=== PATIENT | female | born 1990 | race Caucasian/White ===

== ENCOUNTER 2024-09-06 01:35 | Inpatient (IN) | payer OTHER, SELFPAY ==
[2024-09-06] VITALS (12 sets, daily range): BP systolic 127–146; BP diastolic 77–95; PULSE 56–112; RESP 16–32; TEMP 36.6–37.8; O2SAT 96–100; BMI 20.6
--- NOTE | 2024-09-06 | ECG_ITS ---
Test Reason : DRUG USE Blood Pressure : */* mmHG Vent. Rate : 108 BPM Atrial Rate : 108 BPM P-R Int : 114 ms QRS Dur : 80 ms QT Int : 372 ms P-R-T Axes : 80 118 122 degrees QTcB Int : 498 ms Poor data quality Sinus tachycardia Left posterior fascicular block Nonspecific T wave abnormality Abnormal ECG When compared with ECG of 16-Jul-2017 14:16, Left posterior fascicular block is now Present Nonspecific T wave abnormality now evident in Inferior leads Nonspecific T wave abnormality now evident in Anterolateral leads Referred By: Phil To Electronically Signed By: CAROLINE WALKER MD
--- NOTE | ~2024-09-06 | XR_ITS ---
CLINICAL HISTORY: cough 1 view chest x-ray Comparison: CR/[place] - CHEST 2 VIEWS - 07/01/18 14:07 EST Findings: Patient is rotated on this study. Lungs are well inflated. Cardiac silhouette is within normal limits. No focal areas of consolidation. Rounded density is over the lung bases are related to the nipple shadows. No pleural effusions. IMPRESSION: 1. No acute findings. This document has been electronically signed by: Ashish Goncalves MD on 09/06/2024 09:04:53
--- NOTE | ~2024-09-06 | CT_ITS ---
CLINICAL HISTORY: change in mental status CT head without contrast Comparison: None Findings: Patient's head is slightly tilted in the scanner. The size and shape of the ventricular system is within normal limits for this patient's age. There is subtle low attenuation within the left superior occipital lobe posteriorly extending to the posterior left parietal lobe. Attenuation of the brain parenchyma is otherwise within normal limits. No midline shift or mass effect. No sulcal effacement. No intracranial hemorrhage. No calvarial fractures. IMPRESSION: Subtle low attenuation within the left occipital lobe and left parietal lobe posteriorly. Although this could be artifactual in nature due the patient's head being tilted in the scanner, further evaluation with a contrast-enhanced MRI of the brain is suggested. This document has been electronically signed by: Ashish Goncalves MD on 09/06/2024 09:04:55
--- NOTE | ~2024-09-06 | CT_ITS ---
CLINICAL HISTORY: fevers, vomiting, AMS concern for aspiration CT chest without contrast Comparison: CR - XR CHEST 1V - 09/06/24 08:24 EST Findings: Normal heart size. No pericardial effusion. Calcific coronary artery disease: None. This exam was subject to excessive motion subtle pathology may be obscured. Reticular nodular opacities right lower lobe lungs are otherwise clear. No pneumothorax or pleural effusions, plaques or calcifications. Central airways are patent. No bronchiectasis. No thyroid nodules. No chest wall masses. No axillary adenopathy. Nondiagnostic evaluation of the upper abdomen. Subtle fractures can not be excluded Impression: 1. This exam was subject to excessive motion subtle pathology may be obscured consider a repeat exam. 2. Reticular nodular opacities right lower lobe possible inflammatory process can not exclude aspiration pneumonitis. No pleural effusions. This document has been electronically signed by: Orion Ochoa MD on 09/06/2024 11:30:53
--- NOTE | ~2024-09-06 | MR_ITS ---
CLINICAL HISTORY: Acute encephalopathy MR Brain with and without gadolinium Comparison: CT/SR - CT HEAD/BRAIN WO IV CON - 09/06/24 08:20 EST Findings: There are small foci of FLAIR hyperintensity involving the cortex of the left frontal lobe (series 8 images 15 and 16 ). No associated diffusion abnormality or enhancement. No mass or mass effect. No intracranial hemorrhage. No midline shift. No hydrocephalus. Vascular flow voids are intact. The orbits are normal. Severe mucosal thickening within the right maxillary sinus. Remaining paranasal sinuses are clear. No focal bone lesion. IMPRESSION: Small foci of FLAIR hyperintensity within the left frontal lobe. Could consider encephalitis. This document has been electronically signed by: Ani Bates MD on 09/07/2024 14:10:31
--- NOTE | ~2024-09-06 | CT_ITS ---
CLINICAL HISTORY: change in mental status CT angiography head with IV contrast. 3-D postprocessing Comparison: CT/SR - CT HEAD/BRAIN WO IV CON - 09/06/24 08:20 EST Findings: Angiographic images of the head: The terminal portion of both internal carotid arteries are patent. The anterior and middle cerebral arteries are patent along their proximal aspects. Posteriorly within the head, the intradural vertebral arteries, basilar artery and surgical territory manager are patent. No aneurysm or arteriovenous shunting lesion is appreciated. Impression: 1. Wide patency of the intracranial arterial circulation. 2. No intracranial aneurysm or AVM. 3. This exam was subject to excessive motion subtle pathology may be obscured. CT angiography neck with contrast. 3-D postprocessing Comparison: CT/SR - CT HEAD/BRAIN WO IV CON - 09/06/24 08:20 EST Findings: Angiographic images of the neck: The bilateral common carotid arteries are patent. Both carotid bulbs are widely patent. Both ICAs follow normal course and caliber through their distal cervical segments. Posteriorly within the neck, the vertebral arteries are left dominant with patent origins. Both vessels follow normal course and caliber through their suboccipital segments. Right antrectomy. Mucoperiosteal thickening of the right maxillary sinuses. No mastoid effusions. Adenoids are not enlarged. Normal Fossa of Rosenmuller. Epiglottis and palatine tonsils are not enlarged. No subglottic masses. Normal thyroid gland. Osseous structures intact. Lung apices unremarkable. Impression: 1. There is no stenosis of the right common carotid artery bifurcation and proximal right internal carotid artery based on NASCET criteria. 2. There is no stenosis of the left common carotid artey bifurcation and proximal left internal carotid artery based on NASCET criteria. 3. Wide patency of the cervical vertebral arteries. 4. Excessive motion may obscure subtle pathology. This document has been electronically signed by: Orion Ochoa MD on 09/06/2024 11:53:45
--- NOTE | ~2024-09-06 | XR_ITS ---
CLINICAL HISTORY: for mri screen 1 view abdomen Comparison: CT/SR - CT CHEST WO IV CON - 09/06/24 10:22 EST Findings: Nonobstructive bowel gas pattern with large stool burden throughout the colon most pronounced in the rectal vault. A rectal lead is in place which should be removed prior to MRI, unless known to be MR compatible. Small amount of contrast in the urinary bladder Peribronchial thickening in the right lower lung. Bilateral nipple shadow. No opaque calculi. Bones intact. Impression: Nonobstructive bowel gas pattern with large stool burden. Rectal lead in place which should be removed prior to MRI unless known to be MR compatible. This document has been electronically signed by: Shurki Castillo MD on 09/07/2024 11:21:25
[2024-09-06] MEDS: Naloxone HCl Nasal 4 MG SPRAY NOSTRILALT (01:42)
--- NOTE | 2024-09-06 01:42 | ED.OVERDOSE ---
HPI - Overdose General Chief Complaint: Behavioral Concerns Stated Complaint: OD Time Seen by Provider: 09/06/24 01:42 Source: EMS Mode of arrival: EMS Limitations: altered mental status History of Present Illness ED Provider: HPI Narrative: Patient is brought by EMS found in the car at the gas station with door locked and unresponsive PD found heroin and unknown pills in the car responsive to painful stimuli on arrival Narcan was given without significant effect falling asleep no IVDA track medina no signs of injury Related Data Allergies Allergy/AdvReac Type Severity Reaction Status Date / Time No Known Allergies Allergy Verified 09/06/24 01:57 Review of Systems Review of Systems: Yes Unobtainable due to mental status PMFSH Social History Social History Advance Directives: No Physical Exam Vital Signs: Vital Signs: Last Vital Signs Temp 98.2 F 09/06/24 06:34 Pulse 56 09/06/24 06:34 Resp 20 09/06/24 06:34 BP 146/90 H 09/06/24 06:34 Pulse Ox 96 09/06/24 06:34 O2 Del Method Room Air 09/06/24 06:34 BMI result Body Mass Index 20.6 Appearance: Lethargic No acute distress. Eyes: 2 mm pupils reacting to light ENT: Pharynx normal. Oral Mucosa moist Neck: Normal inspection. Neck supple. CVS: Normal heart rate and rhythm. Pulses normal. Respiratory: No respiratory distress. Equal air entry bilateral, no wheezing/rales/rhonchi Abdomen: Soft and nontender. Bowel sounds are present, no mass palpable, no CVA tenderness Skin: Skin warm and dry. Normal skin color. Normal skin turgor. Extremities: No lower extremity edema. No calf tenderness Neuro: Sleepy arousable to painful stimuli moving all 4 extremities Medications Administered Discontinued Medications Generic Name Dose Route Start Last Admin Trade Name Freq PRN Reason Stop Dose Admin Naloxone HCl 4 mg 09/06/24 01:42 09/06/24 01:42 Naloxone Hcl Nasal 4 Mg [place] NOSTRILALT 09/06/24 01:43 4 mg ONCE ONE Administration Prochlorperazine Edisylate 10 mg 09/06/24 05:07 09/06/24 05:33 Prochlorperazine Edisylate 10 Mg/2 Ml Vial IM 09/06/24 05:08 10 mg ONCE ONE Administration Medical Decision Making Medical Decision Making [facility] Narrative: Patient with polysubstance overdose with stable vitals patient is still sleeping poor response to Narcan will wait for the patient to wake up for urine for drug screening and consult care team/recovery team patient is signed out to Dr. Baig Differential Diagnosis Differential Diagnoses: The differential diagnosis associated with the presentation includes Polysubstance abuse/anxiety/depression/psychological/psychotic disorder Lab Data [facility] Lab Attestation statement: I reviewed the patient's lab results. 09/06/24 03:16 09/06/24 03:16 Labs: Lab Results 09/06/24 09/06/24 Range/Units 03:16 06:32 WBC 11.5 H (4.8-10.8) X10*3/uL RBC 5.82 H (4.20-5.50) X10*6/uL Hgb 11.0 L (12.0-16.0) g/dl Hct 37.1 (37.0-47.0) % MCV 63.7 L (80.0-98.0) fL MCH 18.9 L (27.0-33.0) pg MCHC 29.6 L (31.0-35.0) g/dl RDW 22.6 H (11.0-16.0) % Plt Count 490 H (160-400) X10*3/uL MPV 9.5 (9.4-12.3) fL Immature Gran % (Auto) 0.3 (0.0-0.4) % Neut % (Auto) 74.8 H (45-73) % Lymph % (Auto) 19.3 L (20-40) % [place] % (Auto) 5.0 (2-11) % Eos % (Auto) 0.3 (0-4) % Baso % (Auto) 0.3 (0-2) % Lymph # (Auto) 2.2 (1.2-4.9) X10*3/uL [place] # (Auto) 0.6 (0.1-1.2) X10*3/uL Eos # (Auto) 0.0 (0.0-0.4) X10*3/uL Baso # (Auto) 0.0 (0.0-0.2) X10*3/uL Abs Immat Gran (auto) 0.03 (0.00-0.03) X10*3/uL Absolute Neuts (auto) 8.6 H (2.0-8.3) x10*3/uL Absolute Nucleated RBC 0.000 (0.0-0.012) X10*3/uL Nucleated RBC % (auto) 0.0 (0.0-0.2) /100WBC Sodium 141 (135-145) mmol/L Potassium 3.7 (3.3-5.1) mmol/L Chloride 105 (96-108) mmol/L Carbon Dioxide 20 L (22-29) mmol/L Anion Gap 20 (12-20) BUN 12 (9-16) mg/dL Creatinine 0.58 (0.5-1.4) mg/dL Estim Creat Clear Calc 116.3 Estimated GFR > 60 Random Glucose 100 (60-115) mg/dL Calcium 10.4 H (8.4-10.2) mg/dL Total Bilirubin 0.4 (0.0-1.0) mg/dL AST 24 (5-31) U/L ALT 10 (0-31) U/L Alkaline Phosphatase 74 (39-117) U/L Total Protein 8.9 H (6.5-8.0) g/dL Albumin 4.4 (3.5-5.0) g/dL Urine Color Yellow Urine Appearance Turbid Urine pH 7.0 (5.0-9.0) Ur Specific [place] 1.025 (1.005-1.025) Urine Protein 30 (1+) H (Neg-Trace) mg/dL Urine Glucose (UA) Negative (Negative) mg/dL Urine Ketones >=160 (Negative) mg/dL Urine Blood Negative (Negative) Urine Nitrite Negative (Negative) Ur Leukocyte Esterase Negative (Negative) Salicylates < 5.0 L (15-30) mg/dL Acetaminophen < 3 (<30) mcg/mL Ethyl Alcohol < 10 mg/dL Influenza Type A (PCR) NEGATIVE (Negative) Influenza Type B (PCR) NEGATIVE (Negative) RSV RNA Qual (PCR) NEGATIVE (Negative) SARS-CoV-2 RNA (RT-PCR) NEGATIVE (Negative) Discharge Plan Discharge Clinical Impression: Polysubstance abuse Patient Disposition: Still a Patient Print Language: Hungarian
[2024-09-06 03:19] LABS: MANUAL DIFF FLAG NO
[2024-09-06 03:22] LABS: Basophils Percent Auto 0.3 % (0-2); Eosinophils Percent Auto 0.3 % (0-4); Hematocrit 37.1 % (37.0-47.0); Imm Gran Abs Auto 0.03 X10*3/uL (0.00-0.03); Imm Gran Pct Auto 0.3 % (0.0-0.4); Lymphocytes Absolute Auto 2.2 X10*3/uL (1.2-4.9); Lymphocytes Percent Auto 19.3 % (20-40); Mean Corpuscular HGB Conc 29.6 g/dl (31.0-35.0); Mean Corpuscular Hemoglobin 18.9 pg (27.0-33.0); Mean Platelet Volume 9.5 fL (9.4-12.3); Monocytes Absolute Auto 0.6 X10*3/uL (0.1-1.2); Neutrophils Absolute Auto 8.6 x10*3/uL (2.0-8.3); Neutrophils Percent Auto 74.8 % (45-73); Platelet Count 490 X10*3/uL (160-400); Red Blood Count 5.82 X10*6/uL (4.20-5.50); Red Cell Distribution Width 22.6 % (11.0-16.0); White Blood Count 11.5 X10*3/uL (4.8-10.8)
[2024-09-06 03:23] LABS: Mean Corpuscular Volume 63.7 fL (80.0-98.0)
--- NOTE | 2024-09-06 03:30 | MHC.EDTECH ---
patient woke up and had multiple episodes of vomiting on herself. vomit was brown with mucous.
--- NOTE | 2024-09-06 03:30 | PC.NURSE ---
pt woke up during ekg, tracking staff with eyes however not responding to questions. remains calm, cooperative with lab draws. 1:1 sitter for safety. on arrival pt was changed over by security and belongings secured in [place].
[2024-09-06 03:58] LABS: Influenza A PCR NEGATIVE (Negative); Influenza B PCR NEGATIVE (Negative); Resp Syncy Virus RNA Qual PCR NEGATIVE (Negative); SARS COV2 PCR INHOUSE NEGATIVE (Negative)
[2024-09-06 04:00] LABS: Acetaminophen LAB < 3 mcg/mL (<30); Alanine Aminotransferase 10 U/L (0-31); Albumin Level 4.4 g/dL (3.5-5.0); Alkaline Phosphatase 74 U/L (39-117); Anion Gap 20 (12-20); Aspartate Amino Transferase 24 U/L (5-31); Bilirubin Total 0.4 mg/dL (0.0-1.0); Blood Urea Nitrogen 12 mg/dL (9-16); Calcium 10.4 mg/dL (8.4-10.2); Carbon Dioxide 20 mmol/L (22-29); Chloride 105 mmol/L (96-108); Creatinine Clr Calc Pharmacy 116.3; Estimated Glomerular Filt Rate > 60; Ethanol < 10 mg/dL; Glucose Random 100 mg/dL (60-115); Potassium 3.7 mmol/L (3.3-5.1); Salicylate < 5.0 mg/dL (15-30); Sodium 141 mmol/L (135-145); Total Protein 8.9 g/dL (6.5-8.0)
[2024-09-06] MEDS: Prochlorperazine Edisylate 10 MG/2 ML VIAL IM (05:33)
--- NOTE | 2024-09-06 06:33 | PC.NURSE ---
Pt straight cath for urine. 215 mL of Yellow, cloudy urine collected and sent to lab. Pt tolerated well.
[2024-09-06 06:42] LABS: Appearance Urine Turbid; Color Urine Yellow; Glucose Urine UA Negative (Negative); Leukocyte Esterase Urine Negative (Negative); Nitrite Urine Negative (Negative); Specific Gravity - Urine 1.025 (1.005-1.025); UMIC TRIGGER UACC YES; Urine Blood Negative (Negative); Urine Ketones >=160 mg/dL (Negative); Urine Protein 30 (1+) mg/dL (Neg-Trace)
[2024-09-06 06:45] LABS: Bacteria Urine 4+ (None Seen); Hyaline Casts Urine 0-2 /LPF (0-2); RBC Urine 0-2 /HPF (0-2); Squamous Epithelial Cell Urine 0-2 /HPF (0-2); WBC Urine 0-5 /HPF (0-5)
[2024-09-06 06:57] LABS: Amphetamine Screen Urine Not Detected (Not Detect); Barbiturates, Urine Not Detected (Not Detect); Benzodiazepines Screen Urine POSITIVE (Not Detect); Buprenorphine Scr Not Detected (Not Detect); Cannabinoid Screen Urine Not Detected (Not Detect); Cocaine Screen Urine POSITIVE (Not Detect); Fentanyl, urine POSITIVE (Not Detect); Methadone Screen, Urine Not Detected (Not Detect); Opiate Screen Urine POSITIVE (Not Detect); Oxycodone Screen Urine Not Detected (Not Detect); Phencyclidine Screen Urine Not Detected (Not Detect)
[2024-09-06 07:32] LABS: HCG Quantitative < 2 mIU/mL
[2024-09-06 07:43] LABS: Carbon Monoxide Refer to POC result; Venous Blood Gas Refer to POC result
[2024-09-06 07:45] LABS: VBG Base Excess -0.2 mmol/L; VBG HCO3 20 mmol/L (22-26); VBG pCO2 23 mmHg; VBG pH 7.54 (7.32-7.43); VBG pO2 176 mmHg
--- NOTE | 2024-09-06 07:50 | MHC.EDTECH ---
Rosa and blood work completed, and we have another order for EKG but Doctor not need it will be cancel, patient is sleeping quietly now and she has 1:1 sitter.
[2024-09-06 07:52] LABS: Carbon Monoxide POC 8.3 %
--- NOTE | 2024-09-06 08:31 | MHC.EDTECH ---
EKG ordered at [address] Baig we don't need a repeat EKG at this time since EKG done at 0234.
[2024-09-06 10:05] LABS: Ammonia 33 umol/L (13-55)
[2024-09-06 10:13] LABS: Lactic Acid 0.7 mmol/L (0.5-2.0)
[2024-09-06 10:13] LABS: Carbon Monoxide Refer to POC result
[2024-09-06 10:15] LABS: Carbon Monoxide POC 2.2 %
[2024-09-06] MEDS: cefTRIAXone sodium 2 GM VIAL IVPUSH (10:16)
[2024-09-06 10:22] LABS: C Reactive Protein 0.44 mg/dL (< or = 0.50)
[2024-09-06 10:49] LABS: Erythrocyte Sedimentation Rate 18 MM/HR (0-20)
[2024-09-06] MEDS: ondansetron HCL 4 MG/2 ML VIAL IVPUSH (10:49)
[2024-09-06] MEDS: Acetaminophen 1,000 MG/100 ML PIGGYBACK 400 MG IV (10:50)
[2024-09-06] MEDS: vancomycin HCL 1,250 MG in 0.9 % Sodium Chloride 250 ML 166.67 MG IV (10:52)
--- NOTE | 2024-09-06 11:52 | PC.NURSE ---
apple watch given to mother to try to track down the pt's phone and car
--- NOTE | 2024-09-06 11:58 | PC.NURSE ---
pt continues to sleep, mother at bedide and trying to find the pt's car and phone, while pt was in ct scan, after the chest ct, the pt vomitted and was assisted to a sitting position, pt opened her eyes but did not converse at all, able to sit up on her own, eyes open but no eye contact
--- NOTE | 2024-09-06 13:06 | MHC.EDTECH ---
Mother (Diana) phone number: .
--- NOTE | 2024-09-06 14:33 | P.HPHOSP_ITS ---
History of Present Illness Date of Service: 09/06/24 Attending physician on admission: [facility] Chief Complaint: Found unresponsive Pt is a 33-year-old female with a PMH significant for necrotizing pneumonia, endocarditis, polysubstance use disorder with IVDU, seizure secondary to drug use, ADHD, and anxiety to? who presents to the ED after being found in a locked car at a gas station unresponsive. Windows had to be broken in order to gain access, and police found heroin and unknown pills in the car. Pt was unresponsive to painful stimuli and given Narcan upon arrival to the ED without significant effect. Review of [facility] [place] records shows pt was admitted on 07/24 to 07/26/2024 for seizure activity. EEG negative and seizure thought to be drug related. ED contacted patient's family who note she is currently staying with her mom after leaving her . Mother reports spoke to her yesterday found her to be in her normal state of health. Pt seen and evaluated in the ED where she continues to be unresponsive to painful stimuli. Pt noted to have subtle, rhythmic shaking of upper and lower extremities, most pronounced in right upper extremity. Raised patient's arms above her head and she did not allow them to fall back down. Pt given Ativan 2 mg IV and upon re-evaluation 30 minutes later tremors have ceased. Pt continues to be unresponsive to painful stimuli In the ED pt had low-grade fever of 100.1, tachycardic up to 110, tachypneic up to 32, and initially hypertensive at 146/90. Labs were significant for leukocytosis of 11.5, H&H 11.0/37.1, VBG pH 7.54, pCO2 23, and bicarb 20. Initial carbon monoxide level 8.3 with repeat 2.2. No significant electrolyte abnormalities. Renal and hepatic function baseline. Ammonia WNL. CPK WNL. CXR showed no acute findings. Head CT showed subtle low attenuation within left occipital lobe and left parietal lobe possibly artifactual, though MRI with contrast recommended. CTA of chest with excessive motion, but showed possible aspiration pneumonitis. CTA of head/neck?with excessive motion, but negative for acute abnormalities or stenosis. EKG demonstrated for due to quality but likely showing normal sinus rhythm without evidence of significant ST elevations or depressions. QTc prolonged at 498. Pt was treated in the ED with naloxone, Compazine, IVF, ondansetron, acetaminophen, vancomycin, and ceftriaxone. Pt will be admitted to the hospital for treatment and further evaluation of acute metabolic encephalopathy of unclear etiology requiring additional workup and empiric IV antibiotics and antivirals. Review of Systems 2 Review of Systems: Yes Unobtainable due to mental status PMFSH Social History Unable to assess alcohol history related to: Unable to respond Patient Tobacco Use Status: Tobacco use Unknown Advance Directives: No Nutrition Risks: No Nutritional Risk Meds Allergies Allergy/AdvReac Type Severity Reaction Status Date / Time No Known Allergies Allergy Verified 09/06/24 01:57 Home Medications ?Medication ?Instructions ?Recorded ?Confirmed ?Last Taken ?Type albuterol sulfate 90 mcg/actuation 2 puff inhalation Q4H PRN 09/06/24 09/06/24 Unknown History aerosol inhaler (Ventolin HFA) Shortness Of Breath Or Wheezing alprazolam 2 mg tablet 2 mg PO QID PRN anxiety 09/06/24 09/06/24 Unknown History bupropion HCl 300 mg 24 hr tablet, 300 mg PO DAILY 09/06/24 09/06/24 Unknown History extended release clonidine HCl 0.2 mg tablet 0.2 mg PO BEDTIME 09/06/24 09/06/24 Unknown History dextroamphetamine-amphetamine 15 1 tab PO TID 09/06/24 09/06/24 Unknown History mg tablet escitalopram oxalate 10 mg tablet 10 mg PO DAILY 09/06/24 09/06/24 Unknown History hydroxyzine HCl 50 mg tablet 50 mg PO BID PRN anxiety 09/06/24 09/06/24 Unknown History Physical Exam 2 Vital Signs and Narrative: Vital Signs: Last Vital Signs Temp 99.8 F 09/06/24 12:34 Pulse 69 09/06/24 13:09 Resp 26 H 09/06/24 13:09 BP 137/85 09/06/24 13:09 Pulse Ox 99 09/06/24 13:09 O2 Del Method Room Air 09/06/24 13:09 BMI result Body Mass Index 20.6 General: Obtunded, not responsive to painful stimuli. In no acute distress Resp: CTA bilaterally CVS: S1, S2, regular rate, tachycardic. No murmur, rub, gallop appreciated GI: +BS, NT, no distention Skin: Warm, dry Neuro: Moves all 4 extremities spontaneously. Slight tremulous activity of extremities, most pronounced in right upper extremity Extremities: No edema Results Labs 09/07/24 05:53 09/07/24 05:53 Labs: Laboratory Results - last 24 hr 09/06/24 09/06/24 09/06/24 03:16 06:32 07:40 MCV 63.7 L MCH 18.9 L MCHC 29.6 L RDW 22.6 H Plt Count 490 H MPV 9.5 Immature Gran % (Auto) 0.3 Neut % (Auto) 74.8 H Lymph % (Auto) 19.3 L [place] % (Auto) 5.0 Eos % (Auto) 0.3 Baso % (Auto) 0.3 Lymph # (Auto) 2.2 [place] # (Auto) 0.6 Eos # (Auto) 0.0 Baso # (Auto) 0.0 Abs Immat Gran (auto) 0.03 Absolute Neuts (auto) 8.6 H Absolute Nucleated RBC 0.000 Nucleated RBC % (auto) 0.0 ESR Hold Purple Top VBG pH 7.54 H VBG pCO2 23 VBG pO2 176 VBG HCO3 20 L VBG O2 Saturation 99.0 VBG Base Excess -0.2 Carboxyhemoglobin % Anion Gap 20 Estim Creat Clear Calc 116.3 Estimated GFR > 60 Random Glucose 100 Lactic Acid Calcium 10.4 H Total Bilirubin 0.4 AST 24 ALT 10 Alkaline Phosphatase 74 Ammonia Total Creatine Kinase C-Reactive Protein Total Protein 8.9 H Albumin 4.4 Beta HCG, Quant < 2 Urine Color Yellow Urine Appearance Turbid Urine pH 7.0 Ur Specific [place] 1.025 Urine Protein 30 (1+) H Urine Glucose (UA) Negative Urine Ketones >=160 Urine Blood Negative Urine Nitrite Negative Ur Leukocyte Esterase Negative Urine RBC 0-2 Urine WBC 0-5 Ur Squamous Epith Cells 0-2 Urine Bacteria 4+ Hyaline Casts 0-2 Salicylates < 5.0 L Urine Opiates Screen POSITIVE H Ur Buprenorphine Scrn Not Detected Ur Oxycodone Screen Not Detected Urine Methadone Screen Not Detected Urine Fentanyl Screen POSITIVE H Acetaminophen < 3 Ur Barbiturates Screen Not Detected Ur Phencyclidine Scrn Not Detected Ur Amphetamines Screen Not Detected U Benzodiazepines Scrn POSITIVE H Urine Cocaine Screen POSITIVE H U Marijuana (THC) Screen Not Detected Ethyl Alcohol < 10 Influenza Type A (PCR) NEGATIVE Influenza Type B (PCR) NEGATIVE RSV RNA Qual (PCR) NEGATIVE SARS-CoV-2 RNA (RT-PCR) NEGATIVE 09/06/24 09/06/24 09/06/24 07:45 09:35 09:43 MCV MCH MCHC RDW Plt Count MPV Immature Gran % (Auto) Neut % (Auto) Lymph % (Auto) [place] % (Auto) Eos % (Auto) Baso % (Auto) Lymph # (Auto) [place] # (Auto) Eos # (Auto) Baso # (Auto) Abs Immat Gran (auto) Absolute Neuts (auto) Absolute Nucleated RBC Nucleated RBC % (auto) ESR 18 Hold Purple Top SEE NOTE VBG pH VBG pCO2 VBG pO2 VBG HCO3 VBG O2 Saturation VBG Base Excess Carboxyhemoglobin % 8.3 H* Anion Gap Estim Creat Clear Calc Estimated GFR Random Glucose Lactic Acid 0.7 Calcium Total Bilirubin AST ALT Alkaline Phosphatase Ammonia 33 Total Creatine Kinase 83 C-Reactive Protein 0.44 Total Protein Albumin Beta HCG, Quant Urine Color Urine Appearance Urine pH Ur Specific [place] Urine Protein Urine Glucose (UA) Urine Ketones Urine Blood Urine Nitrite Ur Leukocyte Esterase Urine RBC Urine WBC Ur Squamous Epith Cells Urine Bacteria Hyaline Casts Salicylates Urine Opiates Screen Ur Buprenorphine Scrn Ur Oxycodone Screen Urine Methadone Screen Urine Fentanyl Screen Acetaminophen Ur Barbiturates Screen Ur Phencyclidine Scrn Ur Amphetamines Screen U Benzodiazepines Scrn Urine Cocaine Screen U Marijuana (THC) Screen Ethyl Alcohol Influenza Type A (PCR) Influenza Type B (PCR) RSV RNA Qual (PCR) SARS-CoV-2 RNA (RT-PCR) 09/06/24 10:10 MCV MCH MCHC RDW Plt Count MPV Immature Gran % (Auto) Neut % (Auto) Lymph % (Auto) [place] % (Auto) Eos % (Auto) Baso % (Auto) Lymph # (Auto) [place] # (Auto) Eos # (Auto) Baso # (Auto) Abs Immat Gran (auto) Absolute Neuts (auto) Absolute Nucleated RBC Nucleated RBC % (auto) ESR Hold Purple Top VBG pH VBG pCO2 VBG pO2 VBG HCO3 VBG O2 Saturation VBG Base Excess Carboxyhemoglobin % 2.2 Anion Gap Estim Creat Clear Calc Estimated GFR Random Glucose Lactic Acid Calcium Total Bilirubin AST ALT Alkaline Phosphatase Ammonia Total Creatine Kinase C-Reactive Protein Total Protein Albumin Beta HCG, Quant Urine Color Urine Appearance Urine pH Ur Specific [place] Urine Protein Urine Glucose (UA) Urine Ketones Urine Blood Urine Nitrite Ur Leukocyte Esterase Urine RBC Urine WBC Ur Squamous Epith Cells Urine Bacteria Hyaline Casts Salicylates Urine Opiates Screen Ur Buprenorphine Scrn Ur Oxycodone Screen Urine Methadone Screen Urine Fentanyl Screen Acetaminophen Ur Barbiturates Screen Ur Phencyclidine Scrn Ur Amphetamines Screen U Benzodiazepines Scrn Urine Cocaine Screen U Marijuana (THC) Screen Ethyl Alcohol Influenza Type A (PCR) Influenza Type B (PCR) RSV RNA Qual (PCR) SARS-CoV-2 RNA (RT-PCR) Assessment and Plan (1) Acute encephalopathy: Status: Acute (2) Polysubstance abuse: Status: Acute Plan Pt is a 33-year-old female with a PMH significant for necrotizing pneumonia, endocarditis, polysubstance use disorder with IVDU, seizure secondary to drug use, ADHD, and anxiety to? who presents to the ED after being found in a locked car at a gas station unresponsive. Pt will be admitted to the hospital for treatment and further evaluation of acute metabolic encephalopathy of unclear etiology requiring additional workup and empiric IV antibiotics and antivirals. Acute metabolic encephalopathy Pt found unresponsive with heroin and pills by PD Narcan administered without effect Still obtunded and lethargic, not speaking or following commands Likely secondary to drug use CT of chest nodular opacities of RLL, aspiration pneumonitis can not be excluded CTA of head with subtle area low-attenuation possibly artifact, further evaluation with MRI recommended Meets SIRS criteria with tachycardia and tachypnea; lactic acid WNL Will empirically treat with vancomycin, ceftriaxone, and acyclovir, started 09/06/2024 IVF: Lactated Ringer's @125 ml/hr Will check MRI wo/w contrast Monitor mentation Question of seizure activity Pt with subtle tremors most pronounce in RUE Admitted for seizure likely drug-related at [facility] [place] 07/24-07/26/2024; EEG negative Will empirically treat with Keppra 500mg IV bid Neurology consult Opioid use disorder According to [facility] [place] records on high-dose methadone 160 mg in a.m. and 115 mg at night Addiction medicine consult Mood disorder Continue home mood stabilizers once no longer encephalopathic Full Code Attending:?Dr. Colbert DVT Prophylaxis: Lovenox Pt will require a hospitalization of at least two nights for treatment of?acute metabolic encephalopathy of unclear etiology requiring empiric IV antibiotics and antivirals, as well as close monitoring of labs and cardiac function. Quality Stroke Does the patient have a stroke diagnosis?: No VTE Prior VTE?: No VTE Risk Level:: Medical - moderate - high VTE Device Contraindication: Treatment Not Indicated VTE Drug Contraindication: N/A - Med Ordered
[2024-09-06] MEDS: LORazepam 2 MG/ML VIAL IVPUSH (15:35)
--- NOTE | 2024-09-06 16:20 | PHA.MEDREC ---
Addendum entered by Crystal Meyer [facility] 09/06/24 17:13: reviewed by [facility]. Addendum entered by Felicita Reyna 09/06/24 16:35: Patients sertraline was inactivated per [facility] and escitalopram was picked up on 08/07. Left sertraline off med rec. Original Note: Pharmacy Consult ? Medication Reconciliation Pharmacy has completed the medication reconciliation. Patient is refusing to respond to staff per notes and nurse. Called patients mother, her and family on the phone were only able to name a few of her meds and were unsure on directions, said to call [facility]. Used claim history to confirm meds.
--- NOTE | 2024-09-06 17:44 | PHA.PROG ---
Admission Date/Time: Indication:Other Weight in k.431 kg Adjusted body weight in Kg: Irving body weight in Kg: Obesity Dosing Indication % IBW: BMI 20.6 Serum Creatinine - Last 168 Hours 09/06/24 03:16 Creatinine 0.58 Estimated CrCl and GFR - Last 168 Hours 09/06/24 03:16 Estim Creat Clear Calc 116.3 Estimated GFR > 60 Vancomycin Loading Dose: 1250 mg X1 Current Vancomycin Dosing Regimen: 750 Q8H Vancomycin Monitoring using AUC goal of 400 - 600 range with trough as surrogate marker: 512 Date and Time for next Vancomycin Level to be drawn: 09/07 @0900 Pharmacist Comments on Vancomycin Plan: Patient's renal function appears stable and BMI is within normal range. Starting of with 750 Q8h and getting true trough 09/07. To be adjusted as needed based on SCr and trough. Vancomycin dosing will take advantage of [employer] as a clinical decision support tool that uses Bayesian modeling to calculate individual patient's pharmacokinetic parameters and forecast the patient's drug concentration time course with the target goal AUC 24 range of 400 - 600 mg/L/hr.
[2024-09-06] MEDS: levETIRAcetam in NaCl (iso-os) 500 MG/100 ML PIGGYBACK 400 MG IV (17:54)
[2024-09-06] MEDS: Enoxaparin Sodium 40 MG/0.4 ML SYRINGE SUBCUT (17:54)
[2024-09-06] MEDS: Lactated Ringers 1,000 ML 125 ML IVCONT (17:56)
--- NOTE | 2024-09-06 17:59 | PC.NURSE ---
pt moved from ED21 to ED4 at this time. this RN took over care of pt at this time. vss and up to date. nsr on the gambling monitor. pt remains responsive to painful stimuli only but does not conversate/answer questions/follow commands appropriately when painful stimuli is applied. pt seemingly lethargic/diaphoretic. rectal temp obtained - pt afebrile. medication administered per provider order. pt pending medication from pharmacy - will administer medication when able. pt on RA w/o difficulty. no sob/wob noted. respirations even/unlabored. plan of care ongoing. call blanchard placed within reach.
[2024-09-06] MEDS: ACYCLOVIR SODIUM IV (19:08)
[2024-09-06] MEDS: SODIUM CHLORIDE 0.9% IV (19:08)
--- NOTE | 2024-09-06 19:09 | PC.NURSE ---
delay in medication administration d/t medication not being in the pyxis. medication administered per provider order.
[2024-09-06] MEDS: vancomycin HCL 750 MG in 0.9 % Sodium Chloride 250 ML 265 MG IV (20:24)
[2024-09-06 22:57] LABS: Anion Gap 19 (12-20); Blood Urea Nitrogen 15 mg/dL (9-16); Calcium 8.8 mg/dL (8.4-10.2); Carbon Dioxide 17 mmol/L (22-29); Chloride 111 mmol/L (96-108); Creatinine Clr Calc Pharmacy 116.3; Estimated Glomerular Filt Rate > 60; Glucose Random 72 mg/dL (60-115); Potassium 4.6 mmol/L (3.3-5.1); Sodium 142 mmol/L (135-145)
[2024-09-07] VITALS (8 sets, daily range): BP systolic 122–149; BP diastolic 76–92; PULSE 53–88; RESP 18–27; TEMP 36.6–37.3; O2SAT 95–100; BMI 22.9
[2024-09-07] MEDS: Lactated Ringers 1,000 ML 125 ML IVCONT ×2 (00:55→09:46)
--- NOTE | 2024-09-07 01:42 | PC.NURSE ---
patient bladder scanned for >526ml. message sent to provider who stated to place straight cath. straight cath completed. 600 ml drained.
[2024-09-07] MEDS: SODIUM CHLORIDE 0.9% IV ×3 (02:00→16:44)
[2024-09-07] MEDS: ACYCLOVIR SODIUM IV ×3 (02:00→16:44)
[2024-09-07] MEDS: vancomycin HCL 750 MG in 0.9 % Sodium Chloride 250 ML 265 MG IV ×3 (03:47→21:31)
--- NOTE | 2024-09-07 03:54 | PC.NURSE ---
Pt medicated per [facility] Plan of care ongoing.
[2024-09-07] MEDS: levETIRAcetam in NaCl (iso-os) 500 MG/100 ML PIGGYBACK 400 MG IV ×2 (05:06→08:14)
--- NOTE | 2024-09-07 05:09 | PC.NURSE ---
Pt medicated per [facility] Plan of care ongoing.
[2024-09-07 06:00] LABS: Hematocrit 29.4 % (37.0-47.0); Hemoglobin 9.1 g/dl (12.0-16.0); Mean Corpuscular Hemoglobin 19.7 pg (27.0-33.0); Mean Corpuscular Volume 63.5 fL (80.0-98.0); Mean Platelet Volume 9.7 fL (9.4-12.3); Platelet Count 300 X10*3/uL (160-400); Red Blood Count 4.63 X10*6/uL (4.20-5.50); Red Cell Distribution Width 22.3 % (11.0-16.0); White Blood Count 9.5 X10*3/uL (4.8-10.8)
--- NOTE | 2024-09-07 06:02 | PC.NURSE ---
Pts ETCO2 23 Dr woody notified and aware.
[2024-09-07 06:15] LABS: Anion Gap 18 (12-20); Blood Urea Nitrogen 13 mg/dL (9-16); Calcium 8.7 mg/dL (8.4-10.2); Carbon Dioxide 15 mmol/L (22-29); Chloride 111 mmol/L (96-108); Creatinine Clr Calc Pharmacy 122.7; Estimated Glomerular Filt Rate > 60; Glucose Random 71 mg/dL (60-115); Potassium 4.7 mmol/L (3.3-5.1); Sodium 139 mmol/L (135-145)
--- NOTE | 2024-09-07 06:17 | PC.NURSE ---
This RN assumed pt care @ 0330. Plan of care ongoing.
--- NOTE | 2024-09-07 07:00 | MHC.EDTECH ---
Reached out to phlebotomy regarding blood test, patient is a hard stick
--- NOTE | 2024-09-07 08:18 | PC.NURSE ---
ASSUMED CARE OF THIS PT. RESPONDING ONLY TO NOXIOUS STIM, REMAINS UNRESPONSIVE TO ANY COMMANDS OR QUESTIONING. IVF RUNNING. VSS, THOUGH ETCO2 REMAINS 22. ATTEMPTING TO CONTACT NURS SUP FOR STAT MRI SCHEDULING.
[2024-09-07 09:44] LABS: Venous Blood Gas Refer to POC result
[2024-09-07 09:45] LABS: VBG Base Excess -2.3 mmol/L; VBG HCO3 20 mmol/L (22-26); VBG pCO2 28 mmHg; VBG pH 7.46 (7.32-7.43); VBG pO2 60 mmHg
--- NOTE | 2024-09-07 09:48 | P.CNNE_ITS ---
History of Present Illness Data of Consult Service Date: 09/07/24 Primary Care Provider: Unknown Physician HPI Reason for consult: Encephalopathy 33-year-old female with a PMH significant for necrotizing pneumonia, endocarditis, polysubstance use disorder with IVDU, seizure secondary to drug use, ADHD, and anxiety to? who presents to the ED after being [place] in a locked car [place] station unresponsive. She was given Narcan and brought to emergency room. At 1 point she was also treated with Keppra for probable seizure. She was not responsive to interview. Review of Systems 2 Review of Systems: Could not be done with [facility] Social History Social History Unable to assess alcohol history related to: Unable to respond Patient Tobacco Use Status: Tobacco use Unknown Advance Directives: No Nutrition Risks: No Nutritional Risk Meds Allergies Allergy/AdvReac Type Severity Reaction Status Date / Time No Known Allergies Allergy Verified 09/06/24 01:57 Active Medications: Current Medications Acetaminophen (Acetaminophen 325 Mg Tablet) 650 mg PO Q6H PRN PRN Reason: Pain, Mild 1-3,fever,headache Albuterol Sulfate (Albuterol Sulfate 90 Mcg 8 Gm Inhaler) 2 puff INHALE Q4H PRN PRN Reason: Shortness Of Breath Or Wheezing Amphetamine/Dextroamphetamine (Amphetamine Mixed Salts 10 Mg Tablet) 15 mg PO TID [facility] Last Admin: 09/06/24 20:14 Dose: Not Given Bupropion HCl (Bupropion Hcl Xl 300 Mg Tab.Er.24h) 300 mg PO DAILY [facility] Calcium Carbonate (Calcium Carbonate 750 Mg Tab.Chew) 750 mg PO Q4H PRN PRN Reason: Heartburn Ceftriaxone Sodium (Ceftriaxone Sodium 2 Gm Vial) 2 gm IVPUSH Q24H [facility] Enoxaparin Sodium (Enoxaparin Sodium 40 Mg/0.4 Ml Syringe) 40 mg SUBCUT Q24H [facility] Last Admin: 09/06/24 17:54 Dose: 40 mg Escitalopram Oxalate (Escitalopram Oxalate 10 Mg Tablet) 10 mg PO DAILY [facility] Lactated Ringer's (Lr) 1,000 mls @ 125 mls/hr IVCONT .Q8H [facility] Last Admin: 09/07/24 09:46 Dose: 125 mls/hr Levetiracetam (Keppra) 500 mg in 100 mls @ 400 mls/hr IV Q12H [facility] Last Infusion: 09/07/24 05:25 Dose: Infused Acyclovir Sodium 550 mg/ (Sodium Chloride) 261 mls @ 261 mls/hr IV Q8H [facility] Last Admin: 09/07/24 09:38 Dose: 261 mls/hr Vancomycin HCl 750 mg/ Sodium (Chloride) 265 mls @ 265 mls/hr IV Q8H [facility] Last Infusion: 09/07/24 05:05 Dose: Infused Magnesium Hydroxide (Milk Of Magnesia 30 Ml Oral.Susp) 30 ml PO DAILY PRN PRN Reason: Constipation Melatonin (Melatonin 3 Mg Tablet) 6 mg PO BEDTIME PRN PRN Reason: Insomnia Pharmacy Consult (Consult Rx Vancomycin Dosing) 1 each MISCELLANE DAILY PRN PRN Reason: Consult order Sodium Chloride (0.9 % Sodium Chloride Flush 3 Ml Syringe) 3 ml IVFLUSH QSHIFT [facility] Last Admin: 09/07/24 00:01 Dose: Not Given Home Medications ?Medication ?Instructions ?Recorded ?Confirmed ?Last Taken ?Type albuterol sulfate 90 mcg/actuation 2 puff inhalation Q4H PRN 09/06/24 09/06/24 Unknown History aerosol inhaler (Ventolin HFA) Shortness Of Breath Or Wheezing alprazolam 2 mg tablet 2 mg PO QID PRN anxiety 09/06/24 09/06/24 Unknown History bupropion HCl 300 mg 24 hr tablet, 300 mg PO DAILY 09/06/24 09/06/24 Unknown History extended release clonidine HCl 0.2 mg tablet 0.2 mg PO BEDTIME 09/06/24 09/06/24 Unknown History dextroamphetamine-amphetamine 15 1 tab PO TID 09/06/24 09/06/24 Unknown History mg tablet escitalopram oxalate 10 mg tablet 10 mg PO DAILY 09/06/24 09/06/24 Unknown History hydroxyzine HCl 50 mg tablet 50 mg PO BID PRN anxiety 09/06/24 09/06/24 Unknown History Physical Exam 2 Vital Signs: Vital Signs: Last Vital Signs Temp 99.1 F 09/07/24 08:09 Pulse 53 09/07/24 08:09 Resp 23 H 09/07/24 08:09 BP 125/76 09/07/24 08:09 Pulse Ox 100 09/07/24 08:09 O2 Del Method Room Air 09/07/24 08:09 BMI result Body Mass Index 20.6 Neuro: Other: Very drowsy a not responsive to verbal commands. With pain, she grimaced and try to move own and withdraw. Face was symmetrical. Roving eye motions was noted in eyes. With pain withdrawal, there was no obvious paralysis of arm or leg. Deep tendon reflexes are absent with flexor plantars. Results Labs 09/07/24 05:53 09/07/24 05:53 Labs: Short CBC 09/07/24 Range/Units 05:53 WBC 9.5 (4.8-10.8) X10*3/uL Hgb 9.1 L (12.0-16.0) g/dl Hct 29.4 L D (37.0-47.0) % Plt Count 300 D (160-400) X10*3/uL BMP 09/06/24 09/07/24 22:04 05:53 Sodium 142 139 Potassium 4.6 D 4.7 Chloride 111 H 111 H Carbon Dioxide 17 L 15 L BUN 15 13 Creatinine 0.58 0.55 Calcium 8.8 D 8.7 Cardiac Enzymes 09/06/24 Range/Units 09:43 Total Creatine Kinase 83 (26-140) U/L Head CT did not reveal any significant abnormality. CTA did not reveal any obvious vascular lesion. Drug screen was positive for multiple drugs of abuse including fentanyl and cocaine. Assessment and Plan (1) Toxic metabolic encephalopathy: Status: Acute 33 years old woman with metabolic toxic encephalopathy from drugs of abuse. Seizure was a possibility and I would recommend an EEG. Otherwise conservative supportive treatment is recommended. Procedures Date of Service Date of Service: 09/07/24
[2024-09-07] MEDS: 0.9 % Sodium Chloride Flush 3 ML SYRINGE IVFLUSH (09:50)
[2024-09-07 10:00] LABS: Vancomycin Random 13.7 mcg/mL (15-20)
[2024-09-07 10:02] LABS: Lactic Acid 0.7 mmol/L (0.5-2.0)
--- NOTE | 2024-09-07 10:04 | MHC.CM.PN ---
Addendum entered by Jess Cage 09/07/24 10:23: CM ATTEMPTED TO MEET WITH PT AGAIN, PT STILL SLEEPING AND DOES NOT WAKE TO NAME Original Note: CM ATTEMPTED TO MEET WITH PT, PT SLEEPING CM TO REVISIT
--- NOTE | 2024-09-07 10:13 | HE.PHANOTE ---
RE: VANCO DOSING Trough came back as 13.7, renal function is stable. Dose is kept at 750 mg q8h. Next trough is scheduled for 09/08/24 @0900.
[2024-09-07] MEDS: cefTRIAXone sodium 2 GM VIAL IVPUSH (10:15)
[2024-09-07 10:45] LABS: Anion Gap 16 (12-20); Carbon Dioxide 18 mmol/L (22-29); Chloride 108 mmol/L (96-108); Potassium 3.4 mmol/L (3.3-5.1); Sodium 139 mmol/L (135-145)
--- NOTE | 2024-09-07 11:30 | PC.NURSE ---
Addendum entered by Marcy Tolentino RN 09/07/24 16:21: Temp sensing zapata removed as requested by MRI team. Pt had a total of 700cc of urinary output at the time of removal. Original Note: pt regained consciousness whileher mother was here, opened her eyes spontaneously, answering questions slowly but appropriately. endorsed feeling very fatigued, has no recollection of events of last night. upon transfer to MRI for imaging pt became obtunded again, responding only to sternal rub. pt continues to follow simple commands, but is not interactive at all at this time.
--- NOTE | 2024-09-07 12:03 | MHC.RECOVRN ---
Attempted to meet with pt in ED4 after receiving Addiction Medicine consult for OUD, likely overdose. Pt laying in bed, asleep, does not wake to voice. Of note, it has been documented pt is receiving methadone (160 mg in am and 115 mg in PM), however, UDS is negative for methadone. Will continue to follow.
[2024-09-07] MEDS: gadobutroL 7.5 ML VIAL IVPUSH (13:47)
--- NOTE | 2024-09-07 14:47 | HO.PM.IMPN ---
Subjective Subjective Date of Service: 09/13/24 Interval History: Seen in f/u for altered mental status, encephalopath of some sort patient has been, unresponsive/sleeping for the most part, vitals have been ok She does response to sternal rub and infact, while her mother was visiting, she woke, conversing and following commends before returning to sleep. MRI: Small foci of FLAIR hyperintensity within the left frontal lobe. Could consider encephalitis. Physical Exam Vital Signs: Vital Signs: Last Vital Signs Temp 98.8 F 09/07/24 10:08 Pulse 83 09/07/24 10:08 Resp 24 H 09/07/24 10:08 BP 135/86 09/07/24 10:08 Pulse Ox 100 09/07/24 10:08 O2 Del Method Room Air 09/07/24 10:08 BMI result Body Mass Index 20.6 Const: Other: Constitutional: She is sleeping, respond to sternal rub Mental Status: not able to assess at this time Eyes: Pupils are equal, round and reactive to light. Ear, Nose and Throat: Oropharynx clear, mucous membranes moist. Ears and nose without deformities. Trachea midline. Respiratory: Clear to auscultation. No wheezing, rales or rhonchi. Cardiovascular: S1 S2 regular. No murmurs, rubs or gallops. Gastrointestinal: Abdomen soft, non-tender, non-distended. Normal bowel sounds.? Neurologic: Cranial nerves II-XII not able to assess. No focal neurological deficits. Moves all extremities spontaneously.? Skin: No rashes or lesions.? Musculoskeletal: No cyanosis or clubbing. Psychiatric: not able to assess Objective Data Active Medications Acetaminophen (Acetaminophen 325 Mg Tablet) 650 mg PO Q6H PRN PRN Reason: Pain, Mild 1-3,fever,headache Albuterol Sulfate (Albuterol Sulfate 90 Mcg 8 Gm Inhaler) 2 puff INHALE Q4H PRN PRN Reason: Shortness Of Breath Or Wheezing Amphetamine/Dextroamphetamine (Amphetamine Mixed Salts 10 Mg Tablet) 15 mg PO TID [facility] Last Admin: 09/07/24 09:51 Dose: Not Given Documented By: AJ Non-Admin Reason: Patient Condition Contraindication Bupropion HCl (Bupropion Hcl Xl 300 Mg Tab.Er.24h) 300 mg PO DAILY [facility] Last Admin: 09/07/24 09:51 Dose: Not Given Documented By: AJ Non-Admin Reason: Patient Condition Contraindication Calcium Carbonate (Calcium Carbonate 750 Mg Tab.Chew) 750 mg PO Q4H PRN PRN Reason: Heartburn Ceftriaxone Sodium (Ceftriaxone Sodium 2 Gm Vial) 2 gm IVPUSH Q24H [facility] Last Admin: 09/07/24 10:15 Dose: 2 gm Documented By: AJ Enoxaparin Sodium (Enoxaparin Sodium 40 Mg/0.4 Ml Syringe) 40 mg SUBCUT Q24H [facility] Last Admin: 09/06/24 17:54 Dose: 40 mg Documented By: JENNIFER Escitalopram Oxalate (Escitalopram Oxalate 10 Mg Tablet) 10 mg PO DAILY [facility] Last Admin: 09/07/24 09:51 Dose: Not Given Documented By: AJ Non-Admin Reason: Patient Condition Contraindication Acyclovir Sodium 550 mg/ (Sodium Chloride) 261 mls @ 261 mls/hr IV Q8H [facility] Last Infusion: 09/07/24 10:45 Dose: Infused Documented By: AJ Vancomycin HCl 750 mg/ Sodium (Chloride) 265 mls @ 265 mls/hr IV Q8H [facility] Last Infusion: 09/07/24 13:55 Dose: Infused Documented By: AJ Levetiracetam (Keppra) 1,000 mg in 100 mls @ 400 mls/hr IV Q12H [facility] Dextrose (D5w) 1,000 mls @ 125 mls/hr IVCONT .Q8H [facility] Magnesium Hydroxide (Milk Of Magnesia 30 Ml Oral.Susp) 30 ml PO DAILY PRN PRN Reason: Constipation Melatonin (Melatonin 3 Mg Tablet) 6 mg PO BEDTIME PRN PRN Reason: Insomnia Pharmacy Consult (Consult Rx Vancomycin Dosing) 1 each MISCELLANE DAILY PRN PRN Reason: Consult order Sodium Chloride (0.9 % Sodium Chloride Flush 3 Ml Syringe) 3 ml IVFLUSH QSHIFT [facility] Last Admin: 09/07/24 09:50 Dose: 3 ml Documented By: AJ Labs 09/09/24 08:17 09/09/24 06:32 Labs: Laboratory Results - last 24 hr 09/06/24 09/07/24 09/07/24 22:04 05:53 09:32 MCV 63.5 L MCH 19.7 L MCHC 31.0 RDW 22.3 H Plt Count 300 D MPV 9.7 Absolute Nucleated RBC 0.000 Nucleated RBC % (auto) 0.0 VBG pH VBG pCO2 VBG pO2 VBG HCO3 VBG O2 Saturation VBG Base Excess Anion Gap 19 18 16 Estim Creat Clear Calc 116.3 122.7 Estimated GFR > 60 > 60 Random Glucose 72 71 Lactic Acid Calcium 8.8 D 8.7 Random Vancomycin 09/07/24 09/07/24 09:33 09:38 MCV MCH MCHC RDW Plt Count MPV Absolute Nucleated RBC Nucleated RBC % (auto) VBG pH 7.46 H VBG pCO2 28 VBG pO2 60 VBG HCO3 20 L VBG O2 Saturation 87.0 VBG Base Excess -2.3 Anion Gap Estim Creat Clear Calc Estimated GFR Random Glucose Lactic Acid 0.7 Calcium Random Vancomycin 13.7 L Microbiology Microbiology Results: Microbiology 09/06/24 09:43 Blood Culture - Preliminary Blood - Venous No growth after 24 hours. 09/06/24 09:43 Blood Culture - Preliminary Blood - Venous No growth after 24 hours. Assessment and Plan (1) Toxic metabolic encephalopathy: Status: Acute (2) Acute encephalopathy: Status: Acute Plan Pt is a 33-year-old female with a PMH significant for necrotizing pneumonia, endocarditis, polysubstance use disorder with IVDU, seizure secondary to drug use, ADHD, and anxiety to? who presents to the ED after being [place] locked car [place] station unresponsive. Pt will be admitted to the hospital for treatment and further evaluation of acute metabolic encephalopathy of unclear etiology requiring additional workup and empiric IV antibiotics and antivirals. Acute metabolic encephalopathy:DDx encephalitis, toxic ecnephalopathy from substance Pt found unresponsive with heroin and pills by PD Narcan administered without effect Still obtunded and lethargic, not speaking most of the time, now respond to sternal rub and had a period when she woke and conversed and followed commands before going Likely secondary to drug use CT of chest nodular opacities of RLL, aspiration pneumonitis can not be excluded CTA of head with subtle area low-attenuation possibly artifact, further evaluation with MRI showed Small foci of FLAIR hyperintensity within the left frontal lobe. Could consider encephalitis. empirically treated with vancomycin, ceftriaxone, and acyclovir, started 09/06/2024 continue IVF Seen by Neuro and MRI finding likely artifact, and recommends observation for now EEG tomorrow Question of seizure activity Pt with subtle tremors most pronounce in RUE Admitted for seizure likely drug-related at [facility] [place]24-07/26/2024; EEG negative Will empirically treat with Keppra 1000mg IV bid Opioid use disorder According to [facility] records on high-dose methadone 160 mg in a.m. and 115 mg at night Addiction medicine consult Mood disorder--hold meds Full Code Attending:?Dr. Colbert DVT Prophylaxis: Lovenox Pt will require a hospitalization of at least two nights for treatment of?acute metabolic encephalopathy of unclear etiology requiring empiric IV antibiotics and antivirals, as well as close monitoring of labs and cardiac function. Quality Stroke Does the patient have a stroke diagnosis?: No VTE Prior VTE?: No VTE Risk Level:: Medical - moderate - high VTE Device Contraindication: Treatment Not Indicated VTE Drug Contraindication: N/A - Med Ordered
[2024-09-07] MEDS: Dextrose 5 % 1,000 ML 125 ML IVCONT (15:55)
--- NOTE | 2024-09-07 16:21 | PC.NURSE ---
Pt remains obtunded. Mother given update. VSS.
[2024-09-07] MEDS: Enoxaparin Sodium 40 MG/0.4 ML SYRINGE SUBCUT (16:44)
[2024-09-07 17:24] LABS: Anion Gap 16 (12-20); Carbon Dioxide 17 mmol/L (22-29); Chloride 106 mmol/L (96-108); Potassium 3.6 mmol/L (3.3-5.1); Sodium 135 mmol/L (135-145)
--- NOTE | 2024-09-07 19:51 | PC.NURSE ---
16 Fr F/C inserted, balloon inflated with 10 mL of sterile water, 200 mL of light, immediate output 250 mL of light yellow, clear urine.
[2024-09-07] MEDS: levETIRAcetam in NaCl (iso-os) 1,000 MG/100 ML PIGGYBACK 400 MG IV (22:35)
[2024-09-07] MEDS: Sodium Bicarbonate 8.4% 100 MEQ in Dextrose 5 % 900 ML IV (22:37)
[2024-09-08] VITALS (7 sets, daily range): BP systolic 112–136; BP diastolic 57–89; PULSE 70–83; RESP 18–20; TEMP 36.4–37.2; O2SAT 94–100
--- NOTE | 2024-09-08 | EEG_ITS ---
This is a 16-channel EEG with an EKG lead. The patient is reported awake and drowsy during the tracing. Background EEG rhythm is slow alpha to theta, low to medium amplitude range with frequent intermittent sharply contoured discharges, sometime from right hemisphere and sometime left temporal area. Photic stimulation does not produce any significant abnormality. Cardiac lead does not reveal any significant abnormality. IMPRESSION: Abnormal EEG suggestive of underlying tendency for seizure disorder with bihemispheric focus. MD HARRISON Dickinson/LEILA / [id number]
[2024-09-08] MEDS: vancomycin HCL 750 MG in 0.9 % Sodium Chloride 250 ML 265 MG IV (04:04)
[2024-09-08] MEDS: SODIUM CHLORIDE 0.9% IV (04:13)
[2024-09-08] MEDS: ACYCLOVIR SODIUM IV (04:13)
[2024-09-08 07:48] LABS: Prolactin 2.6 ng/mL
--- NOTE | 2024-09-08 08:11 | HO.PM.IMPN ---
Subjective Subjective Date of Service: 09/08/24 Interval History: altered mental status, encephalopathy? Review of Systems menatl status improivng abnormal eeg no overt seizure episode. Physical Exam Vital Signs: Vital Signs: Last Vital Signs Temp 98.4 F 09/08/24 07:30 Pulse 72 09/08/24 07:30 Resp 18 09/08/24 07:30 BP 112/61 09/08/24 07:30 Pulse Ox 96 09/08/24 07:30 O2 Del Method Room Air 09/08/24 07:30 BMI result Body Mass Index 22.9 Appearance: Alert.? Oriented X3.? cvs: rrr, [id number]. res: clear to auscultation ,no rhonchii or wheezing abd: no rebound or guarding ,nt, bs present. ext pulses present , no cyanosis neuro:moves all ext. Objective Data Active Medications Acetaminophen (Acetaminophen 325 Mg Tablet) 650 mg PO Q6H PRN PRN Reason: Pain, Mild 1-3,fever,headache Albuterol Sulfate (Albuterol Sulfate 90 Mcg 8 Gm Inhaler) 2 puff INHALE Q4H PRN PRN Reason: Shortness Of Breath Or Wheezing Amphetamine/Dextroamphetamine (Amphetamine Mixed Salts 10 Mg Tablet) 15 mg PO TID [facility] Last Admin: 09/07/24 22:01 Dose: Not Given Documented By: MACY Non-Admin Reason: NPO Bupropion HCl (Bupropion Hcl Xl 300 Mg Tab.Er.24h) 300 mg PO DAILY [facility] Last Admin: 09/07/24 09:51 Dose: Not Given Documented By: AJ Non-Admin Reason: Patient Condition Contraindication Calcium Carbonate (Calcium Carbonate 750 Mg Tab.Chew) 750 mg PO Q4H PRN PRN Reason: Heartburn Ceftriaxone Sodium (Ceftriaxone Sodium 2 Gm Vial) 2 gm IVPUSH Q24H [facility] Last Admin: 09/07/24 10:15 Dose: 2 gm Documented By: AJ Enoxaparin Sodium (Enoxaparin Sodium 40 Mg/0.4 Ml Syringe) 40 mg SUBCUT Q24H [facility] Last Admin: 09/07/24 16:44 Dose: 40 mg Documented By: AJ Escitalopram Oxalate (Escitalopram Oxalate 10 Mg Tablet) 10 mg PO DAILY [facility] Last Admin: 09/07/24 09:51 Dose: Not Given Documented By: AJ Non-Admin Reason: Patient Condition Contraindication Acyclovir Sodium 550 mg/ (Sodium Chloride) 261 mls @ 261 mls/hr IV Q8H [facility] Last Infusion: 09/08/24 05:13 Dose: Infused Documented By: MACY Vancomycin HCl 750 mg/ Sodium (Chloride) 265 mls @ 265 mls/hr IV Q8H [facility] Last Infusion: 09/08/24 05:04 Dose: Infused Documented By: MACY Levetiracetam (Keppra) 1,000 mg in 100 mls @ 400 mls/hr IV Q12H [facility] Last Infusion: 09/07/24 22:50 Dose: Infused Documented By: MACY Magnesium Hydroxide (Milk Of Magnesia 30 Ml Oral.Susp) 30 ml PO DAILY PRN PRN Reason: Constipation Melatonin (Melatonin 3 Mg Tablet) 6 mg PO BEDTIME PRN PRN Reason: Insomnia Pharmacy Consult (Consult Rx Vancomycin Dosing) 1 each MISCELLANE DAILY PRN PRN Reason: Consult order Sodium Chloride (0.9 % Sodium Chloride Flush 3 Ml Syringe) 3 ml IVFLUSH QSHIFT [facility] Last Admin: 09/08/24 01:22 Dose: Not Given Documented By: MACY Non-Admin Reason: IV Running Labs 09/08/24 08:48 09/08/24 08:27 Labs: Laboratory Results - last 24 hr 09/07/24 09/07/24 09/07/24 09:32 09:33 09:38 VBG pH 7.46 H VBG pCO2 28 VBG pO2 60 VBG HCO3 20 L VBG O2 Saturation 87.0 VBG Base Excess -2.3 Anion Gap 16 Lactic Acid 0.7 Total Creatine Kinase Prolactin 2.6 Random Vancomycin 13.7 L 09/07/24 09/07/24 16:57 16:57 VBG pH VBG pCO2 VBG pO2 VBG HCO3 VBG O2 Saturation VBG Base Excess Anion Gap Cancelled 16 Lactic Acid Total Creatine Kinase 50 Prolactin Random Vancomycin Microbiology Microbiology Results: Microbiology 09/06/24 09:43 Blood Culture - Preliminary Blood - Venous No growth after 24 hours. 09/06/24 09:43 Blood Culture - Preliminary Blood - Venous No growth after 24 hours. Assessment and Plan (1) Acute encephalopathy: Status: Acute (2) Polysubstance abuse: Status: Acute Assessment and Plan: Parkinson's 33-year-old female with a PMH significant for necrotizing pneumonia, endocarditis, polysubstance use disorder with IVDU, seizure secondary to drug use, ADHD, and anxiety to? who presents to the ED after being found in a locked car [place] a gas station unresponsive. Pt will be admitted to the hospital for treatment and further evaluation of acute metabolic encephalopathy of unclear etiology requiring additional workup and empiric IV antibiotics and antivirals. Acute metabolic encephalopathy:likley due to toxic ecnephalopathy from substance Pt found unresponsive with heroin and pills by PD Narcan administered without effect Still obtunded and lethargic, not speaking most of the time, now respond to sternal rub and had a period when she woke and conversed and followed commands before going Likely secondary to drug use CT of chest nodular opacities of RLL, aspiration pneumonitis can not be excluded. CTA of head with subtle area low-attenuation possibly artifact, further evaluation with MRI showed Small foci of FLAIR hyperintensity within the left frontal lobe. eeg:Abnormal EEG suggestive of underlying tendency for seizure disorder with bihemispheric focus. plan: stop vancomycin, acyclovir, started 09/06/2024 continue IVF Seen by Neuro and MRI finding thought likely artifact, recomended to dc bupripion and continue keppra ( due to abnormal eeg). ( as per chart review:Question of seizure activity,Pt with subtle tremors most pronounce in RUE). Opioid use disorder According to [facility] records on high-dose methadone 160 mg in a.m. and 115 mg at night Addiction medicine consult. Mood disorder--hold meds Quality Stroke Does the patient have a stroke diagnosis?: No VTE Prior VTE?: No VTE Risk Level:: Medical - moderate - high VTE Device Contraindication: Treatment Not Indicated VTE Drug Contraindication: N/A - Med Ordered
[2024-09-08 08:59] LABS: Hematocrit 29.4 % (37.0-47.0); Hemoglobin 9.1 g/dl (12.0-16.0); Mean Corpuscular Hemoglobin 19.3 pg (27.0-33.0); Mean Corpuscular Volume 62.4 fL (80.0-98.0); Platelet Count 191 X10*3/uL (160-400); Red Blood Count 4.71 X10*6/uL (4.20-5.50); Red Cell Distribution Width 21.7 % (11.0-16.0); White Blood Count 7.5 X10*3/uL (4.8-10.8)
[2024-09-08 09:09] LABS: Anion Gap 17 (12-20); Blood Urea Nitrogen 8 mg/dL (9-16); Calcium 8.6 mg/dL (8.4-10.2); Carbon Dioxide 17 mmol/L (22-29); Chloride 108 mmol/L (96-108); Creatinine Clr Calc Pharmacy 132.9; Estimated Glomerular Filt Rate > 60; Glucose Random 101 mg/dL (60-115); Potassium 4.3 mmol/L (3.3-5.1); Sodium 138 mmol/L (135-145)
[2024-09-08 09:25] LABS: Vancomycin Random 16.9 mcg/mL (15-20)
[2024-09-08] MEDS: buPROPion HCl XL 300 MG TAB.ER.24H PO (10:06)
[2024-09-08] MEDS: cefTRIAXone sodium 2 GM VIAL IVPUSH (10:06)
[2024-09-08] MEDS: 0.9 % Sodium Chloride Flush 3 ML SYRINGE IVFLUSH ×3 (10:07→23:36)
[2024-09-08] MEDS: Escitalopram Oxalate 10 MG TABLET PO (10:07)
[2024-09-08] MEDS: levETIRAcetam in NaCl (iso-os) 1,000 MG/100 ML PIGGYBACK 400 MG IV ×2 (10:08→21:05)
--- NOTE | 2024-09-08 11:32 | MHC.RECOVRN ---
Spoke with Gali at [facility]. Pt last received methadone on 07/30/24 at 5:50PM, 115 mg. Pt had been receiving 6 take home bottles weekly prior to presentation to the [facility] on 07/30. Pt had been taking 160 mg in the morning and 115 in the evening. Pt did NOT receive any take home bottles on 07/30/24.
[2024-09-08 11:38] LABS: Amphetamine Screen Urine Not Detected (Not Detect); Barbiturates, Urine Not Detected (Not Detect); Benzodiazepines Screen Urine Not Detected (Not Detect); Buprenorphine Scr Not Detected (Not Detect); Cannabinoid Screen Urine Not Detected (Not Detect); Cocaine Screen Urine POSITIVE (Not Detect); Fentanyl, urine POSITIVE (Not Detect); Methadone Screen, Urine Not Detected (Not Detect); Opiate Screen Urine Not Detected (Not Detect); Oxycodone Screen Urine Not Detected (Not Detect); Phencyclidine Screen Urine Not Detected (Not Detect)
--- NOTE | 2024-09-08 13:52 | MHC.CM.PN ---
Pt self-care, reports living at home with others, would not specify who when asked. Education provided on HCP, pt declines to complete one at this time. Pt states she will arrange her own transport home at discharge. Pt states she doesn't know the name of her PCP, and needs a new one.
[2024-09-08] MEDS: methADONE HCl 20 MG/2 ML ORAL.CONC 30 MG PO (14:44)
[2024-09-08] MEDS: Enoxaparin Sodium 40 MG/0.4 ML SYRINGE SUBCUT (16:04)
[2024-09-08] MEDS: ALPRAZolam 0.5 MG TABLET 2 MG PO (23:12)
[2024-09-08] MEDS: cloNIDine HCL 0.2 MG TABLET PO (23:35)
--- NOTE | 2024-09-08 23:56 | W.PM.IDCN ---
History of Present Illness Data of Consult Service Date: 09/08/24 Requesting physician: Danika Alcantar Primary Care Provider: Unknown Physician HPI Reason for consult: unresponsiveness ?meningitis She was found unresponsive in car. She doesnt remember circumstances. She has MRI some frontal enhancement reported. She has no fever or chills or urinary symptoms. Review of Systems Review of Systems: Yes all other systems are reviewed and are negative [facility] Social History Social History Household Members: Family Household Members Other:: states recently moved in w/ her mom Diana Housing: House Do you presently have visiting nurse or other home services: No Unable to assess alcohol history related to: Unable to respond Patient Tobacco Use Status: Never used Tobacco service: No Meds Allergies Allergy/AdvReac Type Severity Reaction Status Date / Time No Known Allergies Allergy Verified 09/06/24 01:57 Active Medications: Current Medications Acetaminophen (Acetaminophen 325 Mg Tablet) 650 mg PO Q6H PRN PRN Reason: Pain, Mild 1-3,fever,headache Albuterol Sulfate (Albuterol Sulfate 90 Mcg 8 Gm Inhaler) 2 puff INHALE Q4H PRN PRN Reason: Shortness Of Breath Or Wheezing Amphetamine/Dextroamphetamine (Amphetamine Mixed Salts 10 Mg Tablet) 15 mg PO TID [facility] Last Admin: 09/08/24 21:38 Dose: Not Given Calcium Carbonate (Calcium Carbonate 750 Mg Tab.Chew) 750 mg PO Q4H PRN PRN Reason: Heartburn Enoxaparin Sodium (Enoxaparin Sodium 40 Mg/0.4 Ml Syringe) 40 mg SUBCUT Q24H [facility] Last Admin: 09/08/24 16:04 Dose: 40 mg Escitalopram Oxalate (Escitalopram Oxalate 10 Mg Tablet) 10 mg PO DAILY [facility] Last Admin: 09/08/24 10:07 Dose: 10 mg Levetiracetam (Keppra) 1,000 mg in 100 mls @ 400 mls/hr IV Q12H [facility] Last Infusion: 09/08/24 21:20 Dose: Infused Magnesium Hydroxide (Milk Of Magnesia 30 Ml Oral.Susp) 30 ml PO DAILY PRN PRN Reason: Constipation Melatonin (Melatonin 3 Mg Tablet) 6 mg PO BEDTIME PRN PRN Reason: Insomnia Methadone HCl (Methadone Hcl 20 Mg/2 Ml Oral.Conc) 10 mg PO ONCE PRN PRN Reason: Opiate Withdrawal Methadone HCl (Methadone Hcl 20 Mg/2 Ml Oral.Conc) 40 mg PO DAILY@0800 [facility] Pharmacy Consult (Consult Rx Vancomycin Dosing) 1 each MISCELLANE DAILY PRN PRN Reason: Consult order Sodium Chloride (0.9 % Sodium Chloride Flush 3 Ml Syringe) 3 ml IVFLUSH QSHIFT [facility] Last Admin: 09/08/24 23:36 Dose: 3 ml Home Medications ?Medication ?Instructions ?Recorded ?Confirmed ?Last Taken ?Type albuterol sulfate 90 mcg/actuation 2 puff inhalation Q4H PRN 09/06/24 09/06/24 Unknown History aerosol inhaler (Ventolin HFA) Shortness Of Breath Or Wheezing alprazolam 2 mg tablet 2 mg PO QID PRN anxiety 09/06/24 09/06/24 Unknown History bupropion HCl 300 mg 24 hr tablet, 300 mg PO DAILY 09/06/24 09/06/24 Unknown History extended release clonidine HCl 0.2 mg tablet 0.2 mg PO BEDTIME 09/06/24 09/06/24 Unknown History dextroamphetamine-amphetamine 15 1 tab PO TID 09/06/24 09/06/24 Unknown History mg tablet escitalopram oxalate 10 mg tablet 10 mg PO DAILY 09/06/24 09/06/24 Unknown History hydroxyzine HCl 50 mg tablet 50 mg PO BID PRN anxiety 09/06/24 09/06/24 Unknown History Physical Exam Vital Signs: Vital Signs: Last Vital Signs Temp 99.0 F 09/08/24 20:00 Pulse 83 09/08/24 20:00 Resp 20 09/08/24 20:00 BP 130/87 09/08/24 23:35 Pulse Ox 100 09/08/24 20:00 O2 Del Method Room Air 09/08/24 20:00 BMI result Body Mass Index 22.9 Const: General: cooperative HEENT: Head: Yes normal to inspection Face and sinus: Yes normal facial exam Mouth: Normal oral and palatal mucosa present Teeth and gingiva: dentition normal Eyes: General: appearance normal, both eyes and all related structures Pupils: Equal, round and reactive pupils present Resp: Effort & Inspection: normal respiratory effort Cardio: Rate: regular rate Rhythm: regular rhythm GI: Palpation (GI): Soft to palpation and nontender : General: Yes no CVA tenderness Back/Spine/Pelvis: Back: no CVA tenderness Skin: General skin exam: no rashes or lesions noted Neuro: General: moves all extremities Cranial nerves: Yes Equal, round and reactive pupils present Extrem: General: Yes normal to inspection Psych: Appearance: grossly normal Results Labs 09/08/24 08:48 09/08/24 08:27 Labs: Short CBC 09/08/24 Range/Units 08:48 WBC 7.5 (4.8-10.8) X10*3/uL Hgb 9.1 L (12.0-16.0) g/dl Hct 29.4 L (37.0-47.0) % Plt Count 191 D (160-400) X10*3/uL BMP 09/08/24 08:27 Sodium 138 Potassium 4.3 Chloride 108 Carbon Dioxide 17 L BUN 8 L Creatinine 0.51 Calcium 8.6 Microbiology Microbiology Results: Microbiology 09/06/24 09:43 Blood - Venous Blood Culture - Preliminary No growth after 48 hours. 09/06/24 09:43 Blood - Venous Blood Culture - Preliminary No growth after 48 hours. Assessment and Plan (1) Acute encephalopathy: Status: Acute (2) Polysubstance abuse: Status: Acute Plan There is no evidence at this time of meningoencephalitis and likely MRI just shows focal area not of infectious concern. No antibiotis necessary at this time. Stop Ceftriaxone.
[2024-09-09] VITALS: BP 130/87; PULSE 62; RESP 20; TEMP 37.2; O2SAT 100
[2024-09-09 04:00] VITALS: BP 99/66; PULSE 74; RESP 16; TEMP 36.7; O2SAT 98
[2024-09-09 07:09] LABS: Blood Urea Nitrogen 6 mg/dL (9-16); Calcium 8.6 mg/dL (8.4-10.2); Creatinine Clr Calc Pharmacy 130.4; Estimated Glomerular Filt Rate > 60; Glucose Random 74 mg/dL (60-115)
[2024-09-09 07:17] LABS: Anion Gap 14 (12-20); Carbon Dioxide 18 mmol/L (22-29); Chloride 111 mmol/L (96-108); Potassium 3.3 mmol/L (3.3-5.1); Sodium 140 mmol/L (135-145)
[2024-09-09 08:00] VITALS: BP 112/68; PULSE 100; RESP 18; TEMP 36.5; O2SAT 100
[2024-09-09] MEDS: Escitalopram Oxalate 10 MG TABLET PO (08:11)
[2024-09-09] MEDS: levETIRAcetam in NaCl (iso-os) 1,000 MG/100 ML PIGGYBACK 400 MG IV (08:11)
[2024-09-09] MEDS: 0.9 % Sodium Chloride Flush 3 ML SYRINGE IVFLUSH ×2 (08:11→15:53)
[2024-09-09] MEDS: methADONE HCl 20 MG/2 ML ORAL.CONC 40 MG PO (08:11)
[2024-09-09 08:52] LABS: Hematocrit 30.4 % (37.0-47.0); Hemoglobin 9.4 g/dl (12.0-16.0); Mean Corpuscular HGB Conc 30.9 g/dl (31.0-35.0); Mean Corpuscular Hemoglobin 19.4 pg (27.0-33.0); Mean Corpuscular Volume 62.8 fL (80.0-98.0); NRBC Pct Auto 1.1 /100WBC (0.0-0.2); Platelet Count 293 X10*3/uL (160-400); Red Blood Count 4.84 X10*6/uL (4.20-5.50); White Blood Count 5.5 X10*3/uL (4.8-10.8)
[2024-09-09] MEDS: methADONE HCl 20 MG/2 ML ORAL.CONC 10 MG PO (09:18)
--- NOTE | 2024-09-09 11:38 | MHC.RECOVRN ---
Met with pt to follow up and provide support. Pt has received 50 mg methadone today. Pt laying in bed, asleep, wakes to voice and easily engages in conversation. Appears comfortable, no signs of opioid withdrawal noted. Plan for pt to discharge and follow up with [facility] to continue methadone. Pt denies questions or concerns for t/w. Discussed with provider and RN. Referral sent to [facility].
[2024-09-09 11:46] VITALS: BP 106/62; PULSE 74; RESP 18; TEMP 36.1; O2SAT 97
--- NOTE | 2024-09-09 12:04 | MHC.CM.PN ---
Patient has been medically cleared for dc to home today, self care.
--- NOTE | 2024-09-09 12:08 | P.DS_ITS ---
DS: Providers Provider Date of Service: 09/09/24 Date of admission: 09/06/24 16:53 Date of discharge: 09/09/24 Primary care physician: None Physician Consults: 09/06/24 06:44 ED Recovery Team Consult Stat Comment: Reason for consultation: Polysubstance abuse 09/06/24 16:32 Consult to Neurology Routine Consulting Provider: [facility] Reason for consultation: Acute encephalopathy of unclear source, ?IVDU vs seizure 09/06/24 17:49 Addiction Medicine Routine Consulting Provider: [facility] Reason for consultation: Opioid use disorder, likely OD 09/07/24 16:56 Consult to Psychiatry Routine Consulting Provider: [facility] Psych Covering Reason for consultation: Continued somnolence and intermittent responsiveness ?Conversion disorder 09/08/24 11:35 Consult to Infectious Diseases Routine Consulting Provider: [facility] Infectious Disease [facility] Reason for consultation: Encephalopathy Has provider been notified: No DS: Diagnosis Discharge Diagnosis (1) Acute encephalopathy: Status: Acute (2) Polysubstance abuse: Status: Acute DS: Summary Hospital Course Hospital Course: HPI:33-year-old female with a PMH significant for necrotizing pneumonia, endocarditis, polysubstance use disorder with IVDU, seizure secondary to drug use, ADHD, and anxiety to? who presents to the ED after being found in a locked car at a gas station unresponsive. Windows had to be broken in order to gain access, and police found heroin and unknown pills in the car. Pt was unresponsive to painful stimuli and given Narcan upon arrival to the ED without significant effect. Review of [facility] records shows pt was admitted on 07/24 to 07/26/2024 for seizure activity. EEG negative and seizure thought to be drug related. ED contacted patient's family who note she is currently staying with her mom after leaving her . Mother reports spoke to her yesterday found her to be in her normal state of health. Pt seen and evaluated in the ED where she continues to be unresponsive to painful stimuli. Pt noted to have subtle, rhythmic shaking of upper and lower extremities, most pronounced in right upper extremity. Raised patient's arms above her head and she did not allow them to fall back down. Pt given Ativan 2 mg IV and upon re-evaluation 30 minutes later tremors have ceased. Pt continues to be unresponsive to painful stimuli In the ED pt had low-grade fever of 100.1, tachycardic up to 110, tachypneic up to 32, and initially hypertensive at 146/90. Labs were significant for leukocytosis of 11.5, H&H 11.0/37.1, VBG pH 7.54, pCO2 23, and bicarb 20. Initial carbon monoxide level 8.3 with repeat 2.2. No significant electrolyte abnormalities. Renal and hepatic function baseline. Ammonia WNL. CPK WNL. CXR showed no acute findings. Head CT showed subtle low attenuation within left occipital lobe and left parietal lobe possibly artifactual, though MRI with contrast recommended. CTA of chest with excessive motion, but showed possible aspiration pneumonitis. CTA of head/neck?with excessive motion, but negative for acute abnormalities or stenosis. EKG demonstrated for due to quality but likely showing normal sinus rhythm without evidence of significant ST elevations or depressions. QTc prolonged at 498. Pt was treated in the ED with naloxone, Compazine, IVF, ondansetron, acetaminophen, vancomycin, and ceftriaxone. Pt will be admitted to the hospital for treatment and further evaluation of acute metabolic encephalopathy of unclear etiology requiring additional workup and empiric IV antibiotics and antivirals. Hospital course: 33-year-old female with a PMH significant for necrotizing pneumonia, endocarditis, polysubstance use disorder with IVDU, seizure secondary to drug use, ADHD, and anxiety to? who presents to the ED after being found in a locked car at a gas station unresponsive. Pt will be admitted to the hospital for treatment and further evaluation of acute metabolic encephalopathy of unclear etiology requiring additional workup and empiric IV antibiotics and antivirals, further workup: CT chest: Possible mild aspiration pneumonitis,CTA of head with subtle area low-attenuation possibly artifact, further evaluation with MRI showed Small foci of FLAIR hyperintensity within the left frontal lobe-Seen by Neuro and MRI finding thought likely artifact,eeg done :abnormal suggestive of intermittent epileptic discharges:She said that she probably had 1 seizure in the past said she had a tongue bite. MRI of brain finding was probably not reflective of encephalitis. Either trauma during whatever happened in the car or cocaine could explain it. Her EEG was abnormal suggestive of intermittent epileptic discharges. Next impression: Multifactorial encephalopathy including abnormal EEG. neurology Recommendations:recommend avoiding Wellbutrin and continuing levetiracetam 1000 mg twice a day for now. She should not drive and not be involved in any activity that could put her life in danger such as swimming alone or sitting in a soaking tub alone. Of course, she should also stay away from drugs of abuse In addition MRI reviewed by Neurology less likely infectious issue and also seen by ID-recommended to take off antibiotics, blood culture negative. . Polysubstance use patient was strongly advised to abstain from substance use, also seen by addiction Team and started on methadone-currently on methadone 50 mg daily Patient is to follow-up out patiently with methadone clinic. Take home Narcan also ordered. Question of aspiration pneumonitis: Given Augmentin 875 mg p.o. b.i.d. for 5 more days. Please repeat chest imaging in 3-4 weeks to see resolution of pneumonitis. Plan: Keppra 1000 mg p.o. b.i.d. Stopped bupropion Augmentin 875 mg p.o. b.i.d. for 5 days. follow up with neurology outpatient. Above management discussed with the patient in detail length she understand and in agreement with the above plan. Time spent 40 minute. Time Attestation Total time managing care of this patient today: 40 mintues. Discharge Coordination Time (in mins): 40min Quality: Safe Use of Opioids Does Pt have an Active Cancer Diagnosis on the Problem List?: No Quality: Stroke Does the patient have a stroke diagnosis?: No Physical Exam Vital Signs: Vital Signs: Last Vital Signs Temp 97.0 F 09/09/24 11:46 Pulse 74 09/09/24 11:46 Resp 18 09/09/24 11:46 BP 106/62 09/09/24 11:46 Pulse Ox 97 09/09/24 11:46 O2 Del Method Room Air 09/09/24 11:46 BMI result Body Mass Index 22.9 Appearance: Alert.? Oriented X3.? cvs: rrr, [id number]. res: clear to auscultation ,no rhonchii or wheezing abd: no rebound or guarding ,nt, bs present. ext pulses present , no cyanosis neuro:moves all ext. DS: Data Data Completed and Pending Labs on day of discharge: Laboratory Results - last 24 hr 09/06/24 09/09/24 09/09/24 03:16 06:32 08:17 WBC 5.5 RBC 4.84 Hgb 9.4 L Hct 30.4 L MCV 62.8 L MCH 19.4 L MCHC 30.9 L RDW 22.0 H Plt Count 293 D MPV 10.0 Absolute Nucleated RBC 0.060 H Nucleated RBC % (auto) 1.1 H Smear Path Review SEE NOTE Sodium 140 Potassium 3.3 D Chloride 111 H Carbon Dioxide 18 L Anion Gap 14 BUN 6 L Creatinine 0.52 Estim Creat Clear Calc 130.4 Estimated GFR > 60 Random Glucose 74 Calcium 8.6 Preliminary micro results at discharge 09/06/24 09:43 Blood Culture - Preliminary Blood - Venous No growth after 48 hours. 09/06/24 09:43 Blood Culture - Preliminary Blood - Venous No growth after 48 hours. Discharge Plan Discharge Anticipated Discharge Date/Time: 09/09/24 11:53 Patient Disposition: Home, Self-Care Discharge Diagnosis: toxic metabolic encephalopathy, polysubstance use ,possible seizure discharges on eeg. Referrals: Lexii Garay MD [Physician] - 1 Month Physician,None [Primary Care Provider] - 1 Week Discharge Medications: New methadone [Methadose] 10 mg/mL Concentrate 50 mg PO DAILY@0800 Qty: 1 0RF Rx Instructions: Partial Fill upon patient request. levetiracetam 1,000 mg Tablet 1,000 mg PO BID Qty: 180 0RF amoxicillin-pot clavulanate 875-125 mg Tablet 1 tab PO Q12H Qty: 10 0RF Continued hydroxyzine HCl 50 mg tablet 50 mg PO BID PRN (Reason: anxiety) clonidine HCl 0.2 mg tablet 0.2 mg PO BEDTIME dextroamphetamine-amphetamine 15 mg tablet 1 tab PO TID alprazolam 2 mg tablet 2 mg PO QID PRN (Reason: anxiety) albuterol sulfate [Ventolin HFA] 90 mcg/actuation HFA aerosol inhaler 2 puff INHALATION Q4H PRN (Reason: Shortness Of Breath Or Wheezing) escitalopram oxalate 10 mg tablet 10 mg PO DAILY Discontinued bupropion HCl 300 mg tablet extended release 24 hr 300 mg PO DAILY Discharge Orders: Discharge Order (Routine); Ordered 09/09/24 Ordered By: Danika Alcantar Diet: Advance to usual diet Activity on Discharge: As tolerated Stand Alone Forms: Patient Portal Discharge page Print Language: Turkish Care Plan Goals: 33-year-old female with a PMH significant for necrotizing pneumonia, endocarditis, polysubstance use disorder with IVDU, seizure secondary to drug use, ADHD, and anxiety to? who presents to the ED after being found in a locked car [place] a gas station unresponsive. Pt will be admitted to the hospital for treatment and further evaluation of acute metabolic encephalopathy of unclear etiology requiring additional workup and empiric IV antibiotics and antivirals, further workup: CT chest: Possible mild aspiration pneumonitis,CTA of head with subtle area low-attenuation possibly artifact, further evaluation with MRI showed Small foci of FLAIR hyperintensity within the left frontal lobe-Seen by Neuro and MRI finding thought likely artifact,eeg done :abnormal suggestive of intermittent epileptic discharges: neurology recommend avoiding Wellbutrin and continuing levetiracetam 1000 mg twice a day for now. She should not drive and not be involved in any activity that could put her life in danger such as swimming alone or sitting in a soaking tub alone. In addition MRI reviewed by Neurology less likely infectious issue and also seen by ID-recommended to take off antibiotics, blood culture negative. Polysubstance use patient was strongly advised to abstain from substance use, also seen by addiction Team and started on methadone-currently on methadone 50 mg daily Patient is to follow-up out patiently with methadone clinic. Take home Narcan also ordered. Question of aspiration pneumonitis: Given Augmentin 875 mg p.o. b.i.d. for 5 more days. Please repeat chest imaging in 3-4 weeks to see resolution of pne umonitis. Health Concerns: As above. Plan of Treatment: Keppra 1000 mg p.o. b.i.d. Stopped bupropion Augmentin 875 mg p.o. b.i.d. for 5 days. follow outpatient with neurology. Assessment: As above.
[2024-09-09] MEDS: Amoxicillin/Potassium Clav 875 MG TABLET PO (12:34)
--- NOTE | 2024-09-09 14:38 | MHC.CM.PN ---
Today's dc has been canceled. CM will follow.
[2024-09-09] MEDS: Naloxone HCl Nasal TAKE HOME 4 MG SPRAY 8 MG NOSTRILALT (15:53)
== END 2024-09-09 18:26 | disposition home or self-care (01) | DRG 812 ==
LOC: HO.ED 12:06 → HO.IMC 16:27 → HO.EDOVER 20:58 → HO.IMC 09-07 19:46
PROVIDERS: Internal Medicine; Admitting Provider Student in an Organized Health Care Education/Training Program; Emergency Provider Emergency Medicine; Visit Provider Internal Medicine
DX: T50.901A Poisoning by unspecified drugs, medicaments and biological substances, accidental (unintentional), initial encounter (principal); J69.0 Pneumonitis due to inhalation of food and vomit; G92.8 Other toxic encephalopathy; R56.9 Unspecified convulsions; F11.20 Opioid dependence, uncomplicated; F32.A Depression, unspecified; Z20.822 Contact with and (suspected) exposure to COVID-19; F19.10 Other psychoactive substance abuse, uncomplicated; Z79.899 Other long term (current) drug therapy
CPT/HCPCS: 0241U; 36415; 70450; 70496; 70498; 70553; 71045; 71250; 74018; 80048; 80051; 80053; 80143; 80179; 80202; 80307; 81001; 82140; 82375; 82550; 82803; 83605; 84146; 84702; 85025; 85027; 85652; 86140; 87040; 93005; 95816; 99285; A9585; C1758; J0131; J0133; J0696; J0737; J1650; J1953; J2060; J2405; J3370; J3371; J7120; S9485

== ENCOUNTER → 2024-09-06 02:34 | Outpatient (BNV) | payer OTHER, SELFPAY | PROVIDERS: Emergency Provider Emergency Medicine; Visit Provider Internal Medicine Cardiovascular Disease | DX: I44.5 Left posterior fascicular block (principal); R00.0 Tachycardia, unspecified | CPT/HCPCS: 93010 ==

== ENCOUNTER → 2024-09-06 07:59 | Outpatient (BNV) | payer OTHER, SELFPAY | PROVIDERS: Emergency Provider Emergency Medicine; Visit Provider Radiology Diagnostic Radiology | DX: R41.82 Altered mental status, unspecified (principal); R91.8 Other nonspecific abnormal finding of lung field; R05.9 Cough, unspecified | CPT/HCPCS: 70450; 70496; 70498; 71045; 71250 ==

== ENCOUNTER 2024-09-06 16:53 | Outpatient (BNV) | payer OTHER, SELFPAY | END 2024-09-07 10:50 | PROVIDERS: Admitting Provider Student in an Organized Health Care Education/Training Program; Emergency Provider Emergency Medicine; Visit Provider Radiology Diagnostic Radiology | DX: G93.89 Other specified disorders of brain (principal); K56.41 Fecal impaction | CPT/HCPCS: 70553; 74018 ==

== ENCOUNTER → 2024-09-06 16:53 | Outpatient (BNV) | payer OTHER, SELFPAY | PROVIDERS: Admitting Provider Student in an Organized Health Care Education/Training Program; Emergency Provider Emergency Medicine; Visit Provider Student in an Organized Health Care Education/Training Program | DX: G93.40 Encephalopathy, unspecified (principal); F19.10 Other psychoactive substance abuse, uncomplicated | CPT/HCPCS: 99223; 99231; 99232; 99239 ==

== ENCOUNTER → 2024-09-06 16:53 | Outpatient (BNV) | payer OTHER, SELFPAY | PROVIDERS: Admitting Provider Student in an Organized Health Care Education/Training Program; Emergency Provider Emergency Medicine; Visit Provider Psychiatry & Neurology Neurology | DX: G92.8 Other toxic encephalopathy (principal) | CPT/HCPCS: 99222 ==

== ENCOUNTER → 2024-09-06 16:53 | Outpatient (BNV) | payer OTHER, SELFPAY | PROVIDERS: Admitting Provider Student in an Organized Health Care Education/Training Program; Emergency Provider Emergency Medicine; Visit Provider Internal Medicine | DX: G93.40 Encephalopathy, unspecified (principal); F19.10 Other psychoactive substance abuse, uncomplicated | CPT/HCPCS: 99222 ==

== ENCOUNTER 2024-12-29 23:33 | Inpatient (IN) | payer OTHER, SELFPAY ==
--- NOTE | ~2024-12-29 | XR_ITS ---
CLINICAL HISTORY: fever CHEST X-RAY FRONTAL VIEW COMPARISON: None. FINDINGS: A single frontal view of the chest was performed. Cardiothymic silhouette is unremarkable. No focal infiltrate or consolidation. What are thought to represent nipple shadows are noted bilaterally. Pleural thickening or a tiny pleural effusion is noted within the lateral aspect of the right lung base. IMPRESSION: 1. No focal infiltrate or consolidation. 2. Pleural thickening or a tiny pleural effusion is noted within the lateral aspect of the right lung base. This document has been electronically signed by: Cristian Chi M.D. on 12/30/2024 02:16:25
[2024-12-29] MEDS: diazePAM 10 MG/2 ML CARTRIDGE 5 MG IM (23:37)
[2024-12-29] MEDS: Haloperidol Lactate 5 MG/ML VIAL IM (23:41)
[2024-12-29] MEDS: diphenhydrAMINE HCL 50 MG/ML VIAL IM (23:41)
[2024-12-29 23:50] VITALS: PULSE 140; RESP 30; O2SAT 97
[2024-12-29] MEDS: Ziprasidone Mesylate 20 MG VIAL IM (23:50)
[2024-12-30] VITALS (35 sets, daily range): BP systolic 88–166; BP diastolic 37–118; PULSE 48–156; RESP 13–30; TEMP 36–36.8; O2SAT 94–100; BMI 21.5; BMI 20.5
[2024-12-30] MEDS: 0.9 % Sodium Chloride 2,000 ML 999 ML IVCONT (00:02)
--- NOTE | 2024-12-30 00:03 | ECG_ITS ---
Test Reason : OVERDOSE Blood Pressure : */* mmHG Vent. Rate : 77 BPM Atrial Rate : 77 BPM P-R Int : 136 ms QRS Dur : 88 ms QT Int : 442 ms P-R-T Axes : 56 66 60 degrees QTcB Int : 500 ms Normal sinus rhythm Prolonged QT Abnormal ECG When compared with ECG of 06-Sep-2024 02:34, Left posterior fascicular block is no longer Present Nonspecific T wave abnormality no longer evident in Inferior leads Nonspecific T wave abnormality no longer evident in Anterior leads Referred By: Elvia Leung Electronically Signed By: CAROLINE WALKER MD
--- NOTE | 2024-12-30 00:04 | ED.OVERDOSE ---
HPI - Overdose General Chief Complaint: Overdose Stated Complaint: Overdose Time Seen by Provider: 12/30/24 00:00 Source: family Mode of arrival: wheelchair Limitations: other History of Present Illness ED Provider: Dr. Elvia Leung HPI Narrative: patient comes to the emergency room via private vehicle. Patient's brother brings in the patient, states that she use heroin and cocaine earlier today. Patient found the patient unresponsive with her home, he administered 4 mg of intranasal Narcan. The patient's brother drove the patient to the emergency room. Patient had to be assisted by security to get out of the car. Patient breathing spontaneously, however too intoxicated /under the influence of drugs to give any history. Related Data Home Medications ?Medication ?Instructions ?Recorded ?Confirmed albuterol sulfate 90 mcg/actuation 2 puff inhalation Q4H PRN 09/06/24 09/06/24 aerosol inhaler (Ventolin HFA) Shortness Of Breath Or Wheezing alprazolam 2 mg tablet 2 mg PO QID PRN anxiety 09/06/24 09/06/24 clonidine HCl 0.2 mg tablet 0.2 mg PO BEDTIME 09/06/24 09/06/24 dextroamphetamine-amphetamine 15 1 tab PO TID 09/06/24 09/06/24 mg tablet escitalopram oxalate 10 mg tablet 10 mg PO DAILY 09/06/24 09/06/24 hydroxyzine HCl 50 mg tablet 50 mg PO BID PRN anxiety 09/06/24 09/06/24 Previous Rx's ?Medication ?Instructions ?Recorded amoxicillin 875 mg-potassium 1 tab PO Q12H #10 tabs 09/09/24 clavulanate 125 mg tablet levetiracetam 1,000 mg tablet 1,000 mg PO BID #180 tabs 09/09/24 methadone 10 mg/mL oral 50 mg (5 mL) PO DAILY@0800 #1 mL 09/09/24 concentrate (Methadose) Allergies Allergy/AdvReac Type Severity Reaction Status Date / Time No Known Allergies Allergy Verified 12/30/24 00:25 Review of Systems Review of Systems: Yes Other [facility] Past Medical History Medical History (Updated 12/30/24 @ 02:06 by Elvia Leung MD) Polysubstance abuse Toxic metabolic encephalopathy Social History Social History Household Members: Family Household Members Other:: states recently moved in w/ her mom Diana Housing: House Do you presently have visiting nurse or other home services: No Unable to assess alcohol history related to: Unable to respond Patient Tobacco Use Status: Never used Tobacco service: No Physical Exam Vital Signs: Vital Signs: Last Vital Signs Pulse 132 H 12/30/24 00:54 Pulse Ox 95 12/30/24 00:54 BMI result Body Mass Index 20.5 Const: Other: Appearance: patient combative, thrashing, in coherent Eyes: Pupils equal, round and reactive to light. ENT: very dry oral mucosa Neck: Normal inspection. Neck supple. No lymph nodes noted. No crepitus CVS: tachycardic, heart rate in the 130s to 150s Pulses normal. Normal S1 and S2 Respiratory: No respiratory distress. Breath sounds normal. No Wheezing. No rales Abdomen: Soft and nontender. No rigidity. No distention. Skin: multiple track medina patient's upper extremities and lower extremities. Extremities: No lower extremity edema Patient's right forearm there is cellulitis, likely secondary from IV drug use. Neuro: Combative, unable to participating cranial nerve assessment, however, roughly cranial nerves 2-12 are intact Psych: combative, under the influence of drugs Course Course Course Narrative: patient overdose earlier today, combination between heroin plus-minus cocaine according to patient's brother, patient received 4 g of intranasal Narcan by family. Patient acting erratic on arrival, combative, in coherent. It was very hard to put a line in the patient, patient initially was given IM medication, Haldol 5 mg, Geodon 20 mg IM, Valium 5 mg IM. This medications were barely able to decrease the patient's agitation so that we could put a line. However, patient is still very uncooperative, erratic patient was given 5 mg IV of Valium, 50 more mg of the head or mean IV push , patient's arrival, it was noted the patient has cellulitis in her right forearm, likely secondary from IV drug use. Patient's blood pressure has been elevated. At 00:45, the labs were received, patient's white blood cell count is 12.6, possible reactive leukocytosis, possible infection /cellulitis, chemistry does not show any significant abnormalities, glucose 126, lactic acid 3.5. Possible combination between dehydration, patient is very dry especially in the oral mucosa, unlikely from seizure which patient does have history, postictal? versus infection/ cellulitis patient is empirically being treated with IV fluids, vancomycin and Zosyn. Alcohol level 12, urinalysis/toxicology pending chest x-ray obtained, I do not see any acute abnormalities, radiology report pending. I reviewed patient's past notes. In August of this year, patient presented to the hospital with similar way, including fever. Patient received IV antibiotics empirically. No source of infection was found. However, patient this time she has cellulitis in her right forearm. Also, it is unclear if patient was postictal, patient is still acting erratic, patient was given a dose of Keppra IV, 5000 mg. Patient is still acting erratic, not still, we are unable to get any labs or blood work done or insert a line due to patient's violent movements. Given the patient's level of agitation, Zyprexa was started. Precedex is still running, patient is still very combative. Patient is on soft restraints in both ankles and wrists Medications Administered Generic Name Dose Route Start Last Admin Trade Name Freq PRN Reason Stop Dose Admin Sodium Chloride 2,000 mls @ 999 mls/hr 12/30/24 00:02 12/30/24 00:02 Ns IVCONT 12/30/24 02:02 999 mls/hr .Q2H1M ONE Administration Dexmedetomidine HCl 400 mcg in 100 mls @ 0 mls/hr 12/30/24 00:45 12/30/24 00:54 Precedex IVCONT 1 mcg/kg/hr .Q0M MECHELLE 14.18 mls/hr Administration Protocol Per Protocol Discontinued Medications Generic Name Dose Route Start Last Admin Trade Name Freq PRN Reason Stop Dose Admin Diazepam 5 mg 12/30/24 00:00 12/30/24 00:09 Diazepam 10 Mg/2 Ml Cartridge IVPUSH 12/30/24 00:01 5 mg STAT STA Administration Diazepam 5 mg 12/30/24 00:02 12/29/24 23:37 Diazepam 10 Mg/2 Ml Cartridge IM 12/30/24 00:03 5 mg STAT STA Administration Diphenhydramine HCl 50 mg 12/30/24 00:01 12/30/24 00:09 Diphenhydramine Hcl 50 Mg/Ml Vial IVPUSH 12/30/24 00:02 50 mg ONCE ONE Administration Diphenhydramine HCl 50 mg 12/30/24 00:02 12/29/24 23:41 Diphenhydramine Hcl 50 Mg/Ml Vial IM 12/30/24 00:03 50 mg ONCE ONE Administration Haloperidol Lactate 5 mg 12/30/24 00:02 12/29/24 23:41 Haloperidol Lactate 5 Mg/Ml Vial IM 12/30/24 00:03 5 mg STAT STA Administration Ziprasidone 20 mg 12/30/24 00:02 12/29/24 23:50 Ziprasidone Mesylate 20 Mg Vial IM 12/30/24 00:03 20 mg ONCE ONE Administration Medical Decision Making Medical Decision Making [facility] Narrative: she received multiple doses of IM and IV medications. Patient is still combative, patient is now on Precedex. Still combative. Slowly coming down. Vitals stable patient has a cellulitis in her right forearm. also, patient has history of endocarditis and necrotizing pneumonia. Patient does not seem to have any URI symptoms. However, to cover all of the above-mentioned, the patient empirically received IV fluids, vancomycin, Zosyn I considered doing a lumbar puncture due to patient's fever and altered mental status. However, a few months ago, patient had the same presentation including fever and there was no clear source of infection. patient returned to normal mental status , starting to slow down Chest x-ray my interpretation: No infiltrates. The x-ray was done. However, it is not downloaded into the system, In as of now, 02:05, appears that not being done. However, it was done. Radiology report pending. I discussed the patient with Dr. Layne from the ICU, patient being admitted Differential Diagnosis Differential Diagnoses: The differential diagnosis associated with the presentation includes ( overdose, polysubstance abuse, encephalopathy) Admission/Observation Consideration of admission/observation: Escalation of care including admission/observation considered Consult Healthcare Provider Management of the patient was discussed with: Photographic Reproduction Technician Lab Data [facility] Lab Attestation statement: I reviewed the patient's lab results. 12/30/24 00:21 12/30/24 00:21 Labs: Lab Results 12/29/24 12/30/24 Range/Units 23:51 00:21 WBC 12.6 H (4.8-10.8) X10*3/uL RBC 4.59 (4.20-5.50) X10*6/uL Hgb 8.3 L (12.0-16.0) g/dl Hct 28.3 L (37.0-47.0) % MCV 61.7 L (80.0-98.0) fL MCH 18.1 L (27.0-33.0) pg MCHC 29.3 L (31.0-35.0) g/dl RDW 18.5 H (11.0-16.0) % Plt Count 419 H D (160-400) X10*3/uL MPV 8.9 L (9.4-12.3) fL Immature Gran % (Auto) 0.5 H (0.0-0.4) % Neut % (Auto) 83.7 H (45-73) % Lymph % (Auto) 12.3 L (20-40) % [place] % (Auto) 3.1 (2-11) % Eos % (Auto) 0.2 (0-4) % Baso % (Auto) 0.2 (0-2) % Lymph # (Auto) 1.5 (1.2-4.9) X10*3/uL [place] # (Auto) 0.4 (0.1-1.2) X10*3/uL Eos # (Auto) 0.0 (0.0-0.4) X10*3/uL Baso # (Auto) 0.0 (0.0-0.2) X10*3/uL Abs Immat Gran (auto) 0.06 H (0.00-0.03) X10*3/uL Absolute Neuts (auto) 10.5 H (2.0-8.3) x10*3/uL Absolute Nucleated RBC 0.000 (0.0-0.012) X10*3/uL Nucleated RBC % (auto) 0.0 (0.0-0.2) /100WBC Sodium 138 (135-145) mmol/L Potassium 3.9 (3.3-5.1) mmol/L Chloride 108 (96-108) mmol/L Carbon Dioxide 19 L (22-29) mmol/L Anion Gap 15 (12-20) BUN 13 (9-16) mg/dL Creatinine 0.70 (0.5-1.4) mg/dL Estim Creat Clear Calc 94.9 Estimated GFR > 60 POC Glucose 111 (60-115) mg/dL Random Glucose 126 H (60-115) mg/dL Lactic Acid 3.5 H* (0.5-2.0) mmol/L Calcium 9.3 D (8.4-10.2) mg/dL Magnesium 1.8 (1.6-2.6) mg/dL Total Bilirubin 0.4 (0.0-1.0) mg/dL Direct Bilirubin 0.2 (0.0-0.5) mg/dL AST 41 H (5-31) U/L ALT 12 (0-31) U/L Alkaline Phosphatase 74 (39-117) U/L Total Creatine Kinase 258 H (26-140) U/L Total Protein 7.9 (6.5-8.0) g/dL Albumin 4.1 (3.5-5.0) g/dL Ethyl Alcohol 12 mg/dL Independent Interpretation I performed an independent interpretation of an: Plain X-Ray ( my interpretation of chest x-ray, no acute abnormality, no pneumonia.) Critical Care Time Critical Care Time Critical Care Time: Yes Total Critical Care Time: 90 Attestation: I have personally provided critical care time. Time includes review of lab data, radiology results, discussion with consultants, and monitoring for potential decompensation. Intervention performed as documented. Discharge Plan Discharge Clinical Impression: Polysubstance abuse, Toxic metabolic encephalopathy, Drug overdose Patient Disposition: Admitted As Inpatient Prescriptions: No Action hydroxyzine HCl 50 mg tablet 50 mg PO BID PRN (Reason: anxiety) clonidine HCl 0.2 mg tablet 0.2 mg PO BEDTIME dextroamphetamine-amphetamine 15 mg tablet 1 tab PO TID alprazolam 2 mg tablet 2 mg PO QID PRN (Reason: anxiety) albuterol sulfate [Ventolin HFA] 90 mcg/actuation HFA aerosol inhaler 2 puff INHALATION Q4H PRN (Reason: Shortness Of Breath Or Wheezing) escitalopram oxalate 10 mg tablet 10 mg PO DAILY methadone [Methadose] 10 mg/mL Concentrate 50 mg PO DAILY@0800 Qty: 1 0RF Rx Instructions: Partial Fill upon patient request. levetiracetam 1,000 mg Tablet 1,000 mg PO BID Qty: 180 0RF amoxicillin-pot clavulanate 875-125 mg Tablet 1 tab PO Q12H Qty: 10 0RF Print Language: Unable To Collect
--- NOTE | 2024-12-30 00:07 | PC.NURSE ---
pt agitated preventing machine from obtaining BP. in room observed
[2024-12-30] MEDS: diazePAM 10 MG/2 ML CARTRIDGE 5 MG IVPUSH (00:09)
[2024-12-30] MEDS: diphenhydrAMINE HCL 50 MG/ML VIAL IVPUSH (00:09)
[2024-12-30 00:28] LABS: MANUAL DIFF FLAG NO
[2024-12-30 00:29] LABS: Basophils Percent Auto 0.2 % (0-2); Eosinophils Percent Auto 0.2 % (0-4); Hematocrit 28.3 % (37.0-47.0); Hemoglobin 8.3 g/dl (12.0-16.0); Imm Gran Abs Auto 0.06 X10*3/uL (0.00-0.03); Imm Gran Pct Auto 0.5 % (0.0-0.4); Lymphocytes Absolute Auto 1.5 X10*3/uL (1.2-4.9); Lymphocytes Percent Auto 12.3 % (20-40); Mean Corpuscular HGB Conc 29.3 g/dl (31.0-35.0); Mean Corpuscular Hemoglobin 18.1 pg (27.0-33.0); Mean Corpuscular Volume 61.7 fL (80.0-98.0); Mean Platelet Volume 8.9 fL (9.4-12.3); Monocytes Absolute Auto 0.4 X10*3/uL (0.1-1.2); Monocytes Percent Auto 3.1 % (2-11); Neutrophils Absolute Auto 10.5 x10*3/uL (2.0-8.3); Neutrophils Percent Auto 83.7 % (45-73); Platelet Count 419 X10*3/uL (160-400); Red Blood Count 4.59 X10*6/uL (4.20-5.50); Red Cell Distribution Width 18.5 % (11.0-16.0); White Blood Count 12.6 X10*3/uL (4.8-10.8)
[2024-12-30 00:30] LABS: Glucose, Whole Blood 111 mg/dL (60-115)
--- NOTE | 2024-12-30 00:35 | PC.NURSE ---
RR not reading. telling me to fix leads. still not reading
[2024-12-30 00:47] LABS: Alanine Aminotransferase 12 U/L (0-31); Albumin Level 4.1 g/dL (3.5-5.0); Alkaline Phosphatase 74 U/L (39-117); Anion Gap 15 (12-20); Aspartate Amino Transferase 41 U/L (5-31); Bilirubin Direct 0.2 mg/dL (0.0-0.5); Bilirubin Total 0.4 mg/dL (0.0-1.0); Blood Urea Nitrogen 13 mg/dL (9-16); Calcium 9.3 mg/dL (8.4-10.2); Carbon Dioxide 19 mmol/L (22-29); Chloride 108 mmol/L (96-108); Creatinine Clr Calc Pharmacy 94.9; Estimated Glomerular Filt Rate > 60; Ethanol 12 mg/dL; Glucose Random 126 mg/dL (60-115); Lactic Acid 3.5 mmol/L (0.5-2.0); Magnesium 1.8 mg/dL (1.6-2.6); Potassium 3.9 mmol/L (3.3-5.1); Sodium 138 mmol/L (135-145); Total Protein 7.9 g/dL (6.5-8.0)
[2024-12-30] MEDS: dexmedeTOMIDine HCL/NS 400 MCG/100 ML PLAST..BAG 14.18 MCG IVCONT ×3 (00:54→13:36)
--- NOTE | 2024-12-30 00:57 | PC.NURSE ---
unable to enter BP upon precedex initiation d/t agitation
[2024-12-30] MEDS: Piperacillin Sodium/Tazobactam 3.375 GM in 0.9 % Sodium Chloride 50 ML IV (02:05)
[2024-12-30] MEDS: Acetaminophen 1,000 MG/100 ML PIGGYBACK 400 MG IV (02:05)
[2024-12-30 02:27] LABS: Reflex Lactate? Lactic Acid Added
[2024-12-30 02:57] LABS: Venous Blood Gas Refer to POC result
[2024-12-30 03:03] LABS: VBG Base Excess 0.5 mmol/L; VBG HCO3 21 mmol/L (22-26); VBG pCO2 23 mmHg; VBG pH 7.57 (7.32-7.43); VBG pO2 144 mmHg
[2024-12-30 03:03] LABS: ~Lactic Acid-LAB USE ONLY 1.1 mmol/L (0.5-2.0)
--- NOTE | 2024-12-30 03:25 | P.HPCC_ITS ---
History of Present Illness Date of Service: 12/30/24 Attending physician on admission: Francisco Godwin Chief Complaint: Overdose The patient is a 34-year-old female with a past medical history of necrotizing pneumonia, endocarditis, seizure disorder,? polysubstance abuse who presented to the emergency department as a overdose. ? According to patient?s brother,? patient used heroin and cocaine? he found her unresponsive and administer 4 mg of intranasal narcan.?? On arrival to the emergency department,? patient? obtunded and breathing? spontaneously, ? was shortly after became more alert, ? erratic and combative with staff,? requiring multiple sedation medications ultimately requiring Precedex drip.? ?Laboratory data was significant for WBC of 12.6, lactic 3.5.? chemistry does not show any significant abnormalities. Toxicology/ urine studies pending.? IMAGING:? ?CHEST X-RAY: no acute infection noted ED COURSE:? ?Valium 5 mg IM/ 5 mg IVPUSH? Haldol 5 mg IM/ 5mg IVPUSH,? 20 mg Geodon, 50 mg IM Benadryl, 2 L bolus, Tylenol IV 1 g, Keppra 1.5 g IV, an empiric dose of vancomycin and Zosyn Review of Systems 2 Review of Systems: Yes Unobtainable due to mental status PMFSH Past Medical History Medical History (Updated 12/30/24 @ 04:04 by Phillip Gould NP) Polysubstance abuse Toxic metabolic encephalopathy Social History Social History Household Members: Family Household Members Other:: states recently moved in w/ her mom Diana Housing: Unknown / Unable to assess Do you presently have visiting nurse or other home services: No Unable to assess alcohol history related to: Unable to respond Patient Tobacco Use Status: Never used Tobacco Currently Displaying Signs/Symptoms of Drug Intoxication Withdrawal: No Advance Directives: No Advance Directives Information Provided: No Recently lost weight without trying: Unsure Nutrition Risks: Dental problems, Emaciation/Cachexia and On aspiration precautions Patient : No Poor oral hygiene: Yes service: No Meds Allergies Allergy/AdvReac Type Severity Reaction Status Date / Time No Known Allergies Allergy Verified 12/30/24 00:25 Active Medications: Current Medications Enoxaparin Sodium (Enoxaparin Sodium 40 Mg/0.4 Ml Syringe) 40 mg SUBCUT Q24H [facility] Dexmedetomidine HCl (Precedex) 400 mcg in 100 mls @ 0 mls/hr IVCONT .Q0M [facility]; Protocol Last Titration: 12/30/24 02:27 Dose: 1.4 mcg/kg/hr, 19.85 mls/hr Piperacillin Sod/Tazobactam (Sod 4.5 gm/ Sodium Chloride) 100 mls @ 200 mls/hr IV Q8H [facility] Levetiracetam (Keppra) 1,000 mg in 100 mls @ 400 mls/hr IV Q12H [facility] Pharmacy Consult (Consult Rx Vancomycin Dosing) 1 each MISCELLANE DAILY PRN PRN Reason: Consult order Sodium Chloride (0.9 % Sodium Chloride Flush 3 Ml Syringe) 3 ml IVFLUSH QSHIFT [facility] Home Medications ?Medication ?Instructions ?Recorded ?Confirmed ?Last Taken ?Type albuterol sulfate 90 mcg/actuation 2 puff inhalation Q4H PRN 09/06/24 12/30/24 Unknown History aerosol inhaler (Ventolin HFA) Shortness Of Breath Or Wheezing alprazolam 2 mg tablet 2 mg PO QID PRN anxiety 09/06/24 12/30/24 Unknown History clonidine HCl 0.2 mg tablet 0.2 mg PO BEDTIME 09/06/24 12/30/24 Unknown History dextroamphetamine-amphetamine 15 1 tab PO TID 09/06/24 12/30/24 Unknown History mg tablet escitalopram oxalate 10 mg tablet 10 mg PO DAILY 09/06/24 12/30/24 Unknown History hydroxyzine HCl 50 mg tablet 50 mg PO BID PRN anxiety 09/06/24 12/30/24 Unknown History bupropion HCl 300 mg 24 hr tablet, 300 mg PO DAILY 12/30/24 12/30/24 Unknown History extended release Physical Exam 2 Vital Signs: Vital Signs: Last Vital Signs Pulse 103 H 12/30/24 02:27 Resp 22 H 12/30/24 02:12 BP 116/66 12/30/24 02:27 Pulse Ox 100 12/30/24 02:12 O2 Del Method Room Air 12/30/24 02:12 BMI result Body Mass Index 20.5 ?General:? Alert xself.? lethargic, but able to open eyes to verbal command. Poor dentition ?HEENT:? Head is normocephalic, atraumatic, pupils equal round reactive to light accommodation bilaterally.? Buccal mucosa is dry, Neck is supple ?Cardiac:? Clear S1-S2, no murmurs rubs or gallops. ?Pulmonary:? Clear to auscultation, no wheezes, rales or rhonchi. ?Abdomen:? ?Abdomen soft, non-tender, non-distended. Normal bowel sounds. No pulsatile mass. No hepatosplenomegaly. ?Musculoskeletal:? Moving all 4 extremities upon request a major joints, there is no crepitus or tenderness. Gait not assessed at this point. ?Neurologic:? Lethargic/ confused. Cranial nerves 2-12 are grossly intact.? No focal deficits noted.Motor strength as above.?? ?Skin:Right forearm cellulites. Multiple injection sites and extremities.? Vascular:? 2+ pulses upper and lower extremities distally.? Results Labs 12/31/24 06:14 12/31/24 06:14 Labs: Laboratory Results - last 24 hr 12/29/24 12/30/24 12/30/24 23:51 00:21 02:44 MCV 61.7 L MCH 18.1 L MCHC 29.3 L RDW 18.5 H Plt Count 419 H D MPV 8.9 L Immature Gran % (Auto) 0.5 H Neut % (Auto) 83.7 H Lymph % (Auto) 12.3 L [place] % (Auto) 3.1 Eos % (Auto) 0.2 Baso % (Auto) 0.2 Lymph # (Auto) 1.5 [place] # (Auto) 0.4 Eos # (Auto) 0.0 Baso # (Auto) 0.0 Abs Immat Gran (auto) 0.06 H Absolute Neuts (auto) 10.5 H Absolute Nucleated RBC 0.000 Nucleated RBC % (auto) 0.0 VBG pH VBG pCO2 VBG pO2 VBG HCO3 VBG O2 Saturation VBG Base Excess Anion Gap 15 Estim Creat Clear Calc 94.9 Estimated GFR > 60 POC Glucose 111 Random Glucose 126 H Lactic Acid 3.5 H* Lactic Acid F/U @ 2Hr 1.1 Calcium 9.3 D Magnesium 1.8 Total Bilirubin 0.4 Direct Bilirubin 0.2 AST 41 H ALT 12 Alkaline Phosphatase 74 Total Creatine Kinase 258 H Total Protein 7.9 Albumin 4.1 Ethyl Alcohol 12 12/30/24 02:58 MCV MCH MCHC RDW Plt Count MPV Immature Gran % (Auto) Neut % (Auto) Lymph % (Auto) [place] % (Auto) Eos % (Auto) Baso % (Auto) Lymph # (Auto) [place] # (Auto) Eos # (Auto) Baso # (Auto) Abs Immat Gran (auto) Absolute Neuts (auto) Absolute Nucleated RBC Nucleated RBC % (auto) VBG pH 7.57 H VBG pCO2 23 VBG pO2 144 VBG HCO3 21 L VBG O2 Saturation Not Reportable VBG Base Excess 0.5 Anion Gap Estim Creat Clear Calc Estimated GFR POC Glucose Random Glucose Lactic Acid Lactic Acid F/U @ 2Hr Calcium Magnesium Total Bilirubin Direct Bilirubin AST ALT Alkaline Phosphatase Total Creatine Kinase Total Protein Albumin Ethyl Alcohol Assessment and Plan (1) Sepsis: Status: Acute (2) Cellulitis: Status: Acute (3) Drug overdose: Status: Acute (4) Toxic metabolic encephalopathy: Status: Acute (5) Polysubstance abuse: Status: Acute Plan 34-year-old female with a past medical history of necrotizing pneumonia, endocarditis, seizure disorder,? polysubstance abuse Admitted to ICU after drug overdose with sepsis from Cellulitis and toxic encephalopathy Plan: Neuro:? ?Toxic encephalopathy/ Overdose:? patient has a history of polysubstance abuse,? brother states patient use heroin and cocaine earlier. ? Was acting erratic in the emergency department requiring Precedex drip.? Wean off Precedex drips as tolerated.? ?Underlying seizure disorder:? patient has a history of seizures,? does not appear to be postictal.? ? Will use IV Keppra until able to take p.o. Medications.? Follow seizure precautions Cardiac:?? ?Sepsis:? lactic is elevated to 3.5,? but no evidence of severe septic shock.? Received appropriate fluid resuscitation in the emergency department. Patient?s IV drug user,? right forearm concerning for cellulitis. She received vancomycin and Zosyn in the emergency department.? We will continue? empiric antibiotics.? Pulmonary: ?No acute issues? Renal ?No acute issues Endo:?? ?No acute issues GI:?? ?No acute issues ID: ?Sepsis: ???likely from cellulitis of the forearm.? Treated empirically in the emergency department with vancomycin and Zosyn.? We will continue.? Blood cultures collected and pending. ? Will add? UA/cultures Heme/Onc:?? ?No acute issues Psych:? IV drug use:? on methadone, ? Will resume when patient is off Precedex.? Miscellaneous:? ? no acute issues Prophylaxis:? ? Lovenox ? CODE: ? Full code? Critical care time: X 60 minutes of critical care time
--- NOTE | 2024-12-30 03:27 | PC.NURSE ---
pt arrived via brother around 2330 maintaining airway but not responding to stimuli with SpO2 97% upon getting into rm5. however, pt quickly became severely agitated, uncooperative, not verbalizing, not following directions. see mar for exact times of chemical restraint. wrist restraints applied at 2350. POC 111, 100.8 rectal temp. labs difficult to obtain d/t pt hx of IVDU. injections medina visible on arms. #22 IV obtained to left foot, #20 YESSICA. 0040 still agitated despite chemical and physical restraint so precedex initiated. precedex required 2 titrations until rass goal achieved. VSS. cms intact throughout duration of restraint. transfer to icu around 0315 to otto ford.
[2024-12-30] MEDS: Midazolam HCl 2 MG/2 ML VIAL IVPUSH (03:32)
[2024-12-30 03:37] LABS: Glucose, Whole Blood 105 mg/dL (60-115)
[2024-12-30] MEDS: vancomycin HCL 1,250 MG in 0.9 % Sodium Chloride 250 ML 166.67 MG IV (04:08)
[2024-12-30] MEDS: levETIRAcetam in NaCl (iso-os) 1,500 MG/100 ML PIGGYBACK 400 MG IV (04:08)
[2024-12-30 05:37] LABS: VBG Base Excess 0.3 mmol/L; VBG HCO3 20 mmol/L (22-26); VBG pCO2 20 mmHg; VBG pH 7.61 (7.32-7.43); VBG pO2 116 mmHg
[2024-12-30 05:54] LABS: MANUAL DIFF FLAG NO
[2024-12-30 06:00] LABS: Basophils Percent Auto 0.1 % (0-2); Hematocrit 23.2 % (37.0-47.0); Imm Gran Abs Auto 0.05 X10*3/uL (0.00-0.03); Imm Gran Pct Auto 0.5 % (0.0-0.4); Lymphocytes Absolute Auto 1.3 X10*3/uL (1.2-4.9); Lymphocytes Percent Auto 13.1 % (20-40); Mean Corpuscular HGB Conc 28.9 g/dl (31.0-35.0); Mean Corpuscular Hemoglobin 18.1 pg (27.0-33.0); Mean Corpuscular Volume 62.5 fL (80.0-98.0); Mean Platelet Volume 9.3 fL (9.4-12.3); Monocytes Absolute Auto 0.4 X10*3/uL (0.1-1.2); Monocytes Percent Auto 4.1 % (2-11); Neutrophils Absolute Auto 8.3 x10*3/uL (2.0-8.3); Neutrophils Percent Auto 82.2 % (45-73); Platelet Count 312 X10*3/uL (160-400); Red Blood Count 3.71 X10*6/uL (4.20-5.50); Red Cell Distribution Width 18.2 % (11.0-16.0); White Blood Count 10.1 X10*3/uL (4.8-10.8)
--- NOTE | 2024-12-30 06:00 | HO.SKINPHOTO ---
Location: Right forearm; IVDU injection site
[2024-12-30 06:06] LABS: Hemoglobin 6.7 g/dl (12.0-16.0)
[2024-12-30 06:14] LABS: Albumin Level 3.3 g/dL (3.5-5.0); Anion Gap 11 (12-20); Blood Urea Nitrogen 12 mg/dL (9-16); Calcium 8.6 mg/dL (8.4-10.2); Carbon Dioxide 20 mmol/L (22-29); Chloride 115 mmol/L (96-108); Creatinine Clr Calc Pharmacy 107.1; Estimated Glomerular Filt Rate > 60; Glucose Random 105 mg/dL (60-115); Phosphorus 3.4 mg/dL (2.7-4.5); Potassium 3.8 mmol/L (3.3-5.1); Sodium 142 mmol/L (135-145)
[2024-12-30] MEDS: Lactated Ringers 1,000 ML 100 ML IVCONT ×2 (06:25→16:22)
--- NOTE | 2024-12-30 06:31 | PC.ADMIT ---
Pt admitted to ICU from ED at approx 0315. Upon initial assessment- precedex gtt infusing, RASS -3, titrated down per MAR. Able to GUZMAN but not following any commands. Pt agitated/restless/and resistive to care at times. Afebrile. NSR/SB on tele, HR 50-70s. SBP > 90, MAP > 65. Saturating well on room air. NPO r/t AMS. Bladder scanned at 0530 for > 900 mL. JAMES Gould notified and straight cath ordered, DTV at approx 1145, purewick in place. Right forearm with cellulitis d/t IVDU; dressed with xeroform, gauze, and wrapped. Multiple other areas of injections sites to extremities and various small abrasions noted. Full bed bath and mouth care provided. Bed locked in lowest position, alarm on.
[2024-12-30 06:48] LABS: Venous Blood Gas Refer to POC result
[2024-12-30 06:50] LABS: Amphetamine Screen Urine Not Detected (Not Detect); Barbiturates, Urine Not Detected (Not Detect); Benzodiazepines Screen Urine POSITIVE (Not Detect); Buprenorphine Scr Not Detected (Not Detect); Cannabinoid Screen Urine Not Detected (Not Detect); Cocaine Screen Urine POSITIVE (Not Detect); Fentanyl, urine POSITIVE (Not Detect); Methadone Screen, Urine Not Detected (Not Detect); Opiate Screen Urine Not Detected (Not Detect); Oxycodone Screen Urine Not Detected (Not Detect); Phencyclidine Screen Urine Not Detected (Not Detect)
[2024-12-30 07:03] LABS: Appearance Urine Clear; Color Urine Yellow; Glucose Urine UA Negative (Negative); Leukocyte Esterase Urine Negative (Negative); Nitrite Urine Negative (Negative); Urine Blood Negative (Negative); Urine Ketones Negative (Negative); Urine Protein Negative (Neg-Trace)
--- NOTE | 2024-12-30 07:14 | PHA.PROG ---
Admission Date/Time: December 30, 2024 02:11 Indication: SEPSIS Weight in k.1 kg Adjusted body weight in Kg: [place] body weight in Kg: Obesity Dosing Indication % IBW: Serum Creatinine - Last 168 Hours 12/30/24 12/30/24 00:21 05:33 Creatinine 0.70 0.62 Estimated CrCl and GFR - Last 168 Hours 12/30/24 12/30/24 00:21 05:33 Estim Creat Clear Calc 94.9 107.1 Estimated GFR > 60 > 60 Vancomycin Loading Dose: 1250 MG Current Vancomycin Dosing Regimen: 750 MG Q8H Vancomycin Monitoring using AUC goal of 400 - 600 range with trough as surrogate marker: QCU=185 TROUGH=17.4 Date and Time for next Vancomycin Level to be drawn: 12/30/24 @1800 Pharmacist Comments on Vancomycin Plan: Vancomycin dosing will take advantage of [employer] ([employer]RX as a clinical decision support tool that uses Bayesian modeling to calculate individual patient's pharmacokinetic parameters and forecast the patient's drug concentration time course with the target goal AUC 24 range of 400 - 600 mg/L/hr.
[2024-12-30 08:36] LABS: MANUAL DIFF FLAG NO
[2024-12-30] MEDS: 0.9 % Sodium Chloride Flush 3 ML SYRINGE IVFLUSH ×3 (08:36→20:28)
[2024-12-30] MEDS: Albumin Human 25 % 100 ML IV ×2 (08:36→14:30)
[2024-12-30] MEDS: Enoxaparin Sodium 40 MG/0.4 ML SYRINGE SUBCUT (08:37)
[2024-12-30 08:45] LABS: Basophils Percent Auto 0.2 % (0-2); Hematocrit 22.6 % (37.0-47.0); Imm Gran Abs Auto 0.04 X10*3/uL (0.00-0.03); Imm Gran Pct Auto 0.4 % (0.0-0.4); Lymphocytes Absolute Auto 1.9 X10*3/uL (1.2-4.9); Lymphocytes Percent Auto 20.7 % (20-40); Mean Corpuscular HGB Conc 28.8 g/dl (31.0-35.0); Mean Corpuscular Hemoglobin 18.1 pg (27.0-33.0); Mean Platelet Volume 9.4 fL (9.4-12.3); Monocytes Absolute Auto 0.5 X10*3/uL (0.1-1.2); Monocytes Percent Auto 4.9 % (2-11); Neutrophils Absolute Auto 6.7 x10*3/uL (2.0-8.3); Neutrophils Percent Auto 73.8 % (45-73); Platelet Count 317 X10*3/uL (160-400); Red Cell Distribution Width 18.1 % (11.0-16.0); White Blood Count 9.1 X10*3/uL (4.8-10.8)
[2024-12-30 08:56] LABS: Hemoglobin 6.5 g/dl (12.0-16.0); Mean Corpuscular Volume 62.8 fL (80.0-98.0)
[2024-12-30] MEDS: Piperacillin Sodium/Tazobactam 4.5 GM in 0.9 % Sodium Chloride 100 ML IV ×2 (10:00→18:27)
--- NOTE | 2024-12-30 10:19 | PHA.MEDREC ---
Addendum entered by Derek Thompson RPh 12/30/24 10:39: Reviewed by [facility] Original Note: Pharmacy Consult ? Medication Reconciliation Pharmacy has completed the medication reconciliation. Spoke with pt over the phone and he was able to confirm the pt medications. Pt confirmed the pt is still taking Levetiracetam 500mg BID and Hydroxyzine 50mg tabs as needed for Anxiety at home and has some still on hand. Pt confirmed the pt has not taken any methadone in the last couple months but states she wants to start taking it again.
[2024-12-30] MEDS: vancomycin HCL 750 MG in 0.9 % Sodium Chloride 250 ML 265 MG IV (12:25)
--- NOTE | 2024-12-30 12:55 | MHC.CM.PN ---
CM assessment completed w/ , as patient w/ agitation on precedex gtt. Patient is living w/ a friend. She is independent w/ care. Active JOSHUA - heroin and cocaine. Not currently on methadone, but has used [facility] in the past. Has 2 young children (ages 1 and 2), that are living w/ patient's /children's father. reports she recently established care w/ a PCP, but he does not know provider/group. Reports she has an HCP listing himself and patient's mother as HCA's. Copy requested. DP: Goal is home self care. May need assist w/ transport. CM will continue to follow.
[2024-12-30] MEDS: levETIRAcetam in NaCl (iso-os) 1,000 MG/100 ML PIGGYBACK 400 MG IV (16:21)
[2024-12-30 18:48] LABS: Vancomycin Random 18.1 mcg/mL (15-20)
[2024-12-30 19:29] LABS: MANUAL DIFF FLAG NO
--- NOTE | 2024-12-30 19:29 | PC.NURSE ---
Assumed care of patient at 0700, Neuro: Patient sedated Rass-2 to -3, moans with care, but unable to follow commands this morning, Precedex continues at same rate see MAR for full details, patient following commands and answering question at end of shift. Able to d/c bilat leg restraints after trial release Resp: lungs Dim, on RA no respiratory distress noted Cardiac: SB to SR, occasional PAC, edema to right and left forearms noted GI/:NPO, Bladder scanned for 583 and straight cath for 600mls at 1330 Integumentary/Musculoskeletal: redness to right fore arm with DSD in place, slight pink to left Forearm open to air.?
[2024-12-30 19:46] LABS: Anion Gap 15 (12-20); Blood Urea Nitrogen 15 mg/dL (9-16); Calcium 8.7 mg/dL (8.4-10.2); Carbon Dioxide 17 mmol/L (22-29); Chloride 115 mmol/L (96-108); Creatinine Clr Calc Pharmacy 97.7; Estimated Glomerular Filt Rate > 60; Glucose Random 76 mg/dL (60-115); Magnesium 1.8 mg/dL (1.6-2.6); Phosphorus 3.3 mg/dL (2.7-4.5); Potassium 3.7 mmol/L (3.3-5.1); Sodium 143 mmol/L (135-145)
[2024-12-30 19:48] LABS: Basophils Percent Auto 0.2 % (0-2); Eosinophils Percent Auto 0.1 % (0-4); Hematocrit 25.9 % (37.0-47.0); Hemoglobin 7.8 g/dl (12.0-16.0); Imm Gran Abs Auto 0.07 X10*3/uL (0.00-0.03); Imm Gran Pct Auto 0.8 % (0.0-0.4); Lymphocytes Absolute Auto 1.4 X10*3/uL (1.2-4.9); Lymphocytes Percent Auto 16.5 % (20-40); Mean Corpuscular HGB Conc 30.1 g/dl (31.0-35.0); Mean Corpuscular Hemoglobin 19.6 pg (27.0-33.0); Mean Corpuscular Volume 65.2 fL (80.0-98.0); Mean Platelet Volume 9.5 fL (9.4-12.3); Monocytes Absolute Auto 0.4 X10*3/uL (0.1-1.2); Monocytes Percent Auto 4.4 % (2-11); Neutrophils Absolute Auto 6.6 x10*3/uL (2.0-8.3); Platelet Count 274 X10*3/uL (160-400); Red Blood Count 3.97 X10*6/uL (4.20-5.50); Red Cell Distribution Width 21.2 % (11.0-16.0); White Blood Count 8.5 X10*3/uL (4.8-10.8)
[2024-12-30] MEDS: dexmedeTOMIDine HCL/NS 400 MCG/100 ML PLAST..BAG 17.01 MCG IVCONT (20:25)
[2024-12-30] MEDS: vancomycin HCL 1,000 MG in 0.9 % Sodium Chloride 250 ML 270 MG IV (20:27)
[2024-12-31] VITALS (14 sets, daily range): BP systolic 101–136; BP diastolic 56–83; PULSE 43–78; RESP 18–35; TEMP 36.2–36.9; O2SAT 94–100; BMI 20.4
[2024-12-31] MEDS: Midazolam HCl 2 MG/2 ML VIAL IVPUSH ×2 (00:11→05:45)
[2024-12-31] MEDS: Lactated Ringers 1,000 ML 100 ML IVCONT (02:56)
[2024-12-31] MEDS: levETIRAcetam in NaCl (iso-os) 1,000 MG/100 ML PIGGYBACK 400 MG IV (02:57)
[2024-12-31] MEDS: Piperacillin Sodium/Tazobactam 4.5 GM in 0.9 % Sodium Chloride 100 ML IV (03:17)
[2024-12-31 06:24] LABS: Basophils Percent Auto 0.3 % (0-2); Hematocrit 28.2 % (37.0-47.0); Hemoglobin 8.3 g/dl (12.0-16.0); Imm Gran Abs Auto 0.05 X10*3/uL (0.00-0.03); Imm Gran Pct Auto 0.6 % (0.0-0.4); Lymphocytes Absolute Auto 1.8 X10*3/uL (1.2-4.9); Lymphocytes Percent Auto 20.4 % (20-40); MANUAL DIFF FLAG NO; Mean Corpuscular HGB Conc 29.4 g/dl (31.0-35.0); Mean Corpuscular Hemoglobin 19.3 pg (27.0-33.0); Mean Corpuscular Volume 65.4 fL (80.0-98.0); Mean Platelet Volume 9.6 fL (9.4-12.3); Monocytes Absolute Auto 0.4 X10*3/uL (0.1-1.2); Monocytes Percent Auto 4.9 % (2-11); Neutrophils Absolute Auto 6.4 x10*3/uL (2.0-8.3); Neutrophils Percent Auto 73.8 % (45-73); Platelet Count 341 X10*3/uL (160-400); Red Blood Count 4.31 X10*6/uL (4.20-5.50); Red Cell Distribution Width 21.2 % (11.0-16.0); White Blood Count 8.6 X10*3/uL (4.8-10.8)
[2024-12-31 06:47] LABS: Alanine Aminotransferase 27 U/L (0-31); Albumin Level 3.8 g/dL (3.5-5.0); Alkaline Phosphatase 55 U/L (39-117); Anion Gap 17 (12-20); Aspartate Amino Transferase 69 U/L (5-31); Bilirubin Total 0.7 mg/dL (0.0-1.0); Blood Urea Nitrogen 19 mg/dL (9-16); Carbon Dioxide 15 mmol/L (22-29); Chloride 114 mmol/L (96-108); Estimated Glomerular Filt Rate > 60; Glucose Random 75 mg/dL (60-115); Magnesium 1.8 mg/dL (1.6-2.6); Phosphorus 4.1 mg/dL (2.7-4.5); Potassium 5.6 mmol/L (3.3-5.1); Sodium 140 mmol/L (135-145); Total Protein 6.5 g/dL (6.5-8.0)
[2024-12-31] MEDS: Enoxaparin Sodium 40 MG/0.4 ML SYRINGE SUBCUT (08:13)
[2024-12-31] MEDS: vancomycin HCL 1,000 MG in 0.9 % Sodium Chloride 250 ML 270 MG IV (08:13)
[2024-12-31] MEDS: 0.9 % Sodium Chloride Flush 3 ML SYRINGE IVFLUSH (08:16)
[2024-12-31 08:55] LABS: VBG Base Excess -4.4 mmol/L; VBG HCO3 18 mmol/L (22-26); VBG pCO2 28 mmHg; VBG pH 7.42 (7.32-7.43); VBG pO2 42 mmHg
[2024-12-31 08:55] LABS: Venous Blood Gas Refer to POC result
[2024-12-31] MEDS: Piperacillin Sodium/Tazobactam 3.375 GM in 0.9 % Sodium Chloride 50 ML IV (10:07)
--- NOTE | 2024-12-31 10:07 | HE.PHANOTE ---
Re MEthadone Patient has not received their dose since 07/30/24. restarting at a lower dose.
--- NOTE | 2024-12-31 10:31 | PM.CCPN ---
Subjective Subjective Date of Service: 12/31/24 Interval History: 34-year-old lady with underlying history of substance abuse on methadone with prior necrotizing pneumonia and endocarditis, also seizure disorder admitted on 12/30/2024 with polysubstance overdose, status post Narcan with development of agitation requiring sedation with Precedex drip, also noted to have right upper extremity cellulitis, treated with empiric broad-spectrum antibiotics. Blood cultures are pending. No events overnight. Titrated off Precedex drip. Critical Care Time (minutes): 0 Physical Exam Vital Signs: Vital Signs: Last Vital Signs Temp 98.5 F 12/31/24 08:00 Pulse 76 12/31/24 09:00 Resp 18 12/31/24 09:00 BP 120/70 12/31/24 09:00 Pulse Ox 95 12/31/24 09:00 O2 Del Method Room Air 12/31/24 09:00 BMI result Body Mass Index 20.4 Const: General: no acute distress and lethargic (Arousable, answers appropriately and follows commands) Nutritional Appearance: thin Orientation/consciousness: lethargic (Arousable, answers appropriately and follows commands) HEENT: Head: Yes atraumatic Eyes: General: appearance normal, both eyes and all related structures Sclerae: sclerae normal EOM: EOMs intact bilaterally Neck: Neck: Yes supple Lymphatic: no lymphadenopathy noted Resp: Effort & Inspection: normal respiratory effort and no use of accessory muscles Auscultation: clear to auscultation bilaterally Cardio: Rate: regular rate Rhythm: regular rhythm Heart sounds: no gallops, no murmurs and no rubs GI: Palpation (GI): Soft to palpation and Other GI palpation findings present ( Nontender) Auscultation: normal bowel sounds Skin: General skin exam: other ( warm) Extrem: Other: Right forearm cellulitis General: No clubbing and No cyanosis Objective Data Labs 12/31/24 06:14 12/31/24 06:14 Labs: Laboratory Results - last 24 hr 12/30/24 12/30/24 12/30/24 09:40 12:17 18:08 WBC RBC Hgb Hct MCV MCH MCHC RDW Plt Count MPV Immature Gran % (Auto) Neut % (Auto) Lymph % (Auto) [place] % (Auto) Eos % (Auto) Baso % (Auto) Lymph # (Auto) [place] # (Auto) Eos # (Auto) Baso # (Auto) Abs Immat Gran (auto) Absolute Neuts (auto) Absolute Nucleated RBC Nucleated RBC % (auto) VBG pH VBG pCO2 VBG pO2 VBG HCO3 VBG O2 Saturation VBG Base Excess Sodium Potassium Chloride Carbon Dioxide Anion Gap BUN Creatinine Estim Creat Clear Calc Estimated GFR Random Glucose Calcium Phosphorus Magnesium Total Bilirubin AST ALT Alkaline Phosphatase Total Creatine Kinase 739 H Total Protein Albumin Random Vancomycin 18.1 Blood Type O Positive Antibody Screen NEGATIVE Crossmatch See Detail 12/30/24 12/31/24 12/31/24 19:19 06:14 08:51 WBC 8.5 8.6 RBC 3.97 L 4.31 Hgb 7.8 L 8.3 L Hct 25.9 L 28.2 L MCV 65.2 L 65.4 L MCH 19.6 L 19.3 L MCHC 30.1 L 29.4 L RDW 21.2 H 21.2 H Plt Count 274 341 MPV 9.5 9.6 Immature Gran % (Auto) 0.8 H 0.6 H Neut % (Auto) 78.0 H 73.8 H Lymph % (Auto) 16.5 L 20.4 [place] % (Auto) 4.4 4.9 Eos % (Auto) 0.1 0.0 Baso % (Auto) 0.2 0.3 Lymph # (Auto) 1.4 1.8 [place] # (Auto) 0.4 0.4 Eos # (Auto) 0.0 0.0 Baso # (Auto) 0.0 0.0 Abs Immat Gran (auto) 0.07 H 0.05 H Absolute Neuts (auto) 6.6 6.4 Absolute Nucleated RBC 0.000 0.000 Nucleated RBC % (auto) 0.0 0.0 VBG pH 7.42 VBG pCO2 28 VBG pO2 42 VBG HCO3 18 L VBG O2 Saturation 59.0 VBG Base Excess -4.4 Sodium 143 140 Potassium 3.7 5.6 H D Chloride 115 H 114 H Carbon Dioxide 17 L 15 L Anion Gap 15 17 BUN 15 19 H Creatinine 0.68 0.65 Estim Creat Clear Calc 97.7 102.0 Estimated GFR > 60 > 60 Random Glucose 76 75 Calcium 8.7 9.0 Phosphorus 3.3 4.1 Magnesium 1.8 1.8 Total Bilirubin 0.7 AST 69 H ALT 27 Alkaline Phosphatase 55 Total Creatine Kinase Total Protein 6.5 Albumin 3.8 Random Vancomycin Blood Type Antibody Screen Crossmatch Microbiology Microbiology Results: Microbiology 12/30/24 01:36 Blood - Venous Blood Culture - Preliminary No growth after 24 hours. 12/30/24 01:36 Blood - Venous Blood Culture - Preliminary No growth after 24 hours. Progress Note: A&P Assessment and plan (1) Polysubstance abuse: Status: Acute (2) Cellulitis: Status: Acute (3) Acute encephalopathy: Status: Acute (4) Drug overdose: Status: Acute Plan Assessment: 34-year-old lady with polysubstance abuse, admitted with polysubstance overdose, improved with Narcan, however required sedative drips, also noted to have right upper extremity cellulitis Plan: Neuro: Toxic encephalopathy secondary to polysubstance abuse, improving. Titrated off sedative drips. Cardiac: No acute issues. Pulmonary: No acute issues. Renal: No acute issues. Endo: No acute issues. GI: No acute issues. ID: Right upper extremity cellulitis, continue empiric antibiotics. Blood cultures are pending. Heme/Onc: No acute issues. Psych: No acute issues. Miscellaneous: No acute issues. Prophylaxis: Heparin Diet: Regular Quality Stroke Does the patient have a stroke diagnosis?: No VTE Prior VTE?: No VTE Risk Level:: Medical - moderate - high VTE Device Contraindication: N/A - Device Ordered VTE Drug Contraindication: N/A - Med Ordered
[2024-12-31] MEDS: levETIRAcetam 1,000 MG TABLET 1000 MG PO (11:16)
[2024-12-31] MEDS: methADONE HCl 20 MG/2 ML ORAL.CONC 50 MG PO (11:16)
[2024-12-31 12:55] LABS: Blood Urea Nitrogen 18 mg/dL (9-16); Calcium 9.1 mg/dL (8.4-10.2); Creatinine Clr Calc Pharmacy 108.6; Estimated Glomerular Filt Rate > 60; Glucose Random 75 mg/dL (60-115)
[2024-12-31 13:15] LABS: Anion Gap 16 (12-20); Carbon Dioxide 19 mmol/L (22-29); Chloride 110 mmol/L (96-108); Potassium 3.6 mmol/L (3.3-5.1); Sodium 141 mmol/L (135-145)
--- NOTE | 2024-12-31 14:29 | PC.NURSE ---
at ~1415 pt stated she wanted to leave AMA. Pt A/Ox4, calm and cooperative but states she is leaving . MD at bedside and pt was educated abour risks of leaving before medically cleared. Pt verbalized understanding. Called who agreed to pick her up at main entrance. IV to b/l upper arms removed with catheter tip intact, no s/s infection or bleeding noted. Pt escorted to main entrance by [facility] BUTCH[facility]. AMA form signed.
--- NOTE | 2024-12-31 15:00 | PM.DS ---
DS: Providers Provider Date of Service: 12/31/24 Date of admission: 12/30/24 02:11 Date of discharge: 12/31/24 Primary care physician: Unknown Physician Consults: 12/31/24 10:22 Consult to Wound Care Routine Reason for consultation: cellulitis R forearm DS: Diagnosis Discharge Diagnosis (1) Polysubstance abuse: Status: Acute (2) Cellulitis: Status: Acute (3) Acute encephalopathy: Status: Acute (4) Drug overdose: Status: Acute DS: Summary Hospital Course Hospital Course: 34-year-old lady with underlying history of substance abuse on methadone with prior necrotizing pneumonia and endocarditis, also seizure disorder admitted on 12/30/2024 with unintentional polysubstance overdose, status post Narcan with development of agitation requiring sedation with Precedex drip, also noted to have right upper extremity cellulitis, treated with empiric broad-spectrum antibiotics. Overnight patient titrated off Precedex drip. Patient was being transferred to telemetry service when instead she decided to leave the hospital against medical advice. Status at Discharge Functional status at discharge: independent ambulation Time Attestation Discharge Coordination Time (in mins): 15 Quality: Safe Use of Opioids Does Pt have an Active Cancer Diagnosis on the Problem List?: No Quality: Stroke Does the patient have a stroke diagnosis?: No Physical Exam Vital Signs: Vital Signs: Last Vital Signs Temp 97.5 F 12/31/24 12:00 Pulse 50 12/31/24 13:00 Resp 29 H 12/31/24 13:00 BP 119/72 12/31/24 13:00 Pulse Ox 100 12/31/24 13:00 O2 Del Method Room Air 12/31/24 13:00 BMI result Body Mass Index 20.4 Const: General: no acute distress, alert and awake Eyes: Sclerae: sclerae normal EOM: EOMs intact bilaterally Neck: Neck: Yes no lymphadenopathy, Yes trachea midline and Yes supple Resp: Effort & Inspection: normal respiratory effort and no respiratory distress Auscultation: clear to auscultation bilaterally Cardio: Rate: regular rate Rhythm: regular rhythm Heart sounds: no gallops, no murmurs and no rubs GI: Palpation (GI): Soft to palpation and Other GI palpation findings present ( Nontender) Auscultation: normal bowel sounds Extrem: General: Yes no pedal edema, No clubbing and No cyanosis DS: Data Data Completed and Pending Labs on day of discharge: Laboratory Results - last 24 hr 12/30/24 12/30/24 12/31/24 18:08 19:19 06:14 WBC 8.5 8.6 RBC 3.97 L 4.31 Hgb 7.8 L 8.3 L Hct 25.9 L 28.2 L MCV 65.2 L 65.4 L MCH 19.6 L 19.3 L MCHC 30.1 L 29.4 L RDW 21.2 H 21.2 H Plt Count 274 341 MPV 9.5 9.6 Immature Gran % (Auto) 0.8 H 0.6 H Neut % (Auto) 78.0 H 73.8 H Lymph % (Auto) 16.5 L 20.4 [place] % (Auto) 4.4 4.9 Eos % (Auto) 0.1 0.0 Baso % (Auto) 0.2 0.3 Lymph # (Auto) 1.4 1.8 [place] # (Auto) 0.4 0.4 Eos # (Auto) 0.0 0.0 Baso # (Auto) 0.0 0.0 Abs Immat Gran (auto) 0.07 H 0.05 H Absolute Neuts (auto) 6.6 6.4 Absolute Nucleated RBC 0.000 0.000 Nucleated RBC % (auto) 0.0 0.0 VBG pH VBG pCO2 VBG pO2 VBG HCO3 VBG O2 Saturation VBG Base Excess Sodium 143 140 Potassium 3.7 5.6 H D Chloride 115 H 114 H Carbon Dioxide 17 L 15 L Anion Gap 15 17 BUN 15 19 H Creatinine 0.68 0.65 Estim Creat Clear Calc 97.7 102.0 Estimated GFR > 60 > 60 Random Glucose 76 75 Calcium 8.7 9.0 Phosphorus 3.3 4.1 Magnesium 1.8 1.8 Total Bilirubin 0.7 AST 69 H ALT 27 Alkaline Phosphatase 55 Total Protein 6.5 Albumin 3.8 Random Vancomycin 18.1 12/31/24 12/31/24 08:51 12:08 WBC RBC Hgb Hct MCV MCH MCHC RDW Plt Count MPV Immature Gran % (Auto) Neut % (Auto) Lymph % (Auto) [place] % (Auto) Eos % (Auto) Baso % (Auto) Lymph # (Auto) [place] # (Auto) Eos # (Auto) Baso # (Auto) Abs Immat Gran (auto) Absolute Neuts (auto) Absolute Nucleated RBC Nucleated RBC % (auto) VBG pH 7.42 VBG pCO2 28 VBG pO2 42 VBG HCO3 18 L VBG O2 Saturation 59.0 VBG Base Excess -4.4 Sodium 141 Potassium 3.6 D Chloride 110 H Carbon Dioxide 19 L Anion Gap 16 BUN 18 H Creatinine 0.61 Estim Creat Clear Calc 108.6 Estimated GFR > 60 Random Glucose 75 Calcium 9.1 Phosphorus Magnesium Total Bilirubin AST ALT Alkaline Phosphatase Total Protein Albumin Random Vancomycin Preliminary micro results at discharge 12/30/24 01:36 Blood Culture - Preliminary Blood - Venous No growth after 24 hours. 12/30/24 01:36 Blood Culture - Preliminary Blood - Venous No growth after 24 hours. Discharge Plan Discharge Patient Disposition: Left Against Medical Advice Discharge Diagnosis: Unintentional polysubstance overdose Referrals: Physician,Unknown J [Primary Care Provider] - 1 Week Discharge Medications: New sulfamethoxazole-trimethoprim [Bactrim DS] 800-160 mg tablet 1 tab PO BID Qty: 14 0RF No Action hydroxyzine HCl 50 mg tablet 50 mg PO BID PRN (Reason: anxiety) clonidine HCl 0.2 mg tablet 0.2 mg PO BEDTIME dextroamphetamine-amphetamine 15 mg tablet 1 tab PO TID alprazolam 2 mg tablet 2 mg PO QID PRN (Reason: anxiety) albuterol sulfate [Ventolin HFA] 90 mcg/actuation HFA aerosol inhaler 2 puff INHALATION Q4H PRN (Reason: Shortness Of Breath Or Wheezing) escitalopram oxalate 10 mg tablet 10 mg PO DAILY methadone [Methadose] 10 mg/mL Concentrate 50 mg PO DAILY@0800 Qty: 1 0RF Rx Instructions: Partial Fill upon patient request. levetiracetam 1,000 mg Tablet 1,000 mg PO BID Qty: 180 0RF bupropion HCl 300 mg tablet extended release 24 hr 300 mg PO DAILY Discharge Orders: Discharge Order (Routine); Ordered 12/31/24 Ordered By: Francisco Godwin Print Language: Tamazight Care Plan Goals: Left against medical advice Health Concerns: Left against medical advice Plan of Treatment: Left against medical advice Assessment: Left against medical advice
--- NOTE | 2024-12-31 16:02 | MHC.CM.PN ---
Pt left AMA
== END 2024-12-31 15:04 | disposition left against medical advice (07) | DRG 816 ==
LOC: HO.ED 12-30 02:12 → HO.EDOVER 12-30 02:37 → HO.ICU 12-30 02:37
PROVIDERS: Admitting Provider Registered Nurse Community Health; Emergency Provider Emergency Medicine; Visit Provider Internal Medicine Pulmonary Disease
DX: T40.1X1A Poisoning by heroin, accidental (unintentional), initial encounter (principal); A41.9 Sepsis, unspecified organism; G92.8 Other toxic encephalopathy; T40.5X1A Poisoning by cocaine, accidental (unintentional), initial encounter; F11.20 Opioid dependence, uncomplicated; F19.10 Other psychoactive substance abuse, uncomplicated; L03.113 Cellulitis of right upper limb; Z79.899 Other long term (current) drug therapy
CPT/HCPCS: 36415; 71045; 80048; 80053; 80076; 80202; 80307; 81003; 82040; 82550; 82803; 82947; 83605; 83735; 84100; 85025; 86850; 86900; 86901; 86923; 87040; 87076; 87185; 87205; 93005; 99285; J0131; J1200; J1630; J1650; J1953; J2250; J2543; J3360; J3370; J3371; J3486; J7120; P9016; P9047

== ENCOUNTER → 2024-12-30 00:03 | Outpatient (BNV) | payer OTHER, SELFPAY | PROVIDERS: Admitting Provider Registered Nurse Community Health; Emergency Provider Emergency Medicine; Visit Provider Internal Medicine Cardiovascular Disease | DX: R94.31 Abnormal electrocardiogram [ECG] [EKG] (principal); T50.901A Poisoning by unspecified drugs, medicaments and biological substances, accidental (unintentional), initial encounter | CPT/HCPCS: 93010 ==

== ENCOUNTER → 2024-12-30 00:49 | Outpatient (BNV) | payer OTHER, SELFPAY | PROVIDERS: Admitting Provider Registered Nurse Community Health; Emergency Provider Emergency Medicine; Visit Provider Radiology Diagnostic Radiology | DX: R50.9 Fever, unspecified (principal) | CPT/HCPCS: 71045 ==

== ENCOUNTER → 2024-12-30 02:11 | Outpatient (BNV) | payer OTHER, SELFPAY | PROVIDERS: Admitting Provider Registered Nurse Community Health; Emergency Provider Emergency Medicine; Visit Provider Registered Nurse Community Health | DX: A41.9 Sepsis, unspecified organism (principal); L03.90 Cellulitis, unspecified; T50.901A Poisoning by unspecified drugs, medicaments and biological substances, accidental (unintentional), initial encounter; G92.8 Other toxic encephalopathy; F19.10 Other psychoactive substance abuse, uncomplicated | CPT/HCPCS: 99291 ==

== ENCOUNTER → 2024-12-30 02:11 | Outpatient (BNV) | payer OTHER, SELFPAY | PROVIDERS: Admitting Provider Registered Nurse Community Health; Emergency Provider Emergency Medicine; Visit Provider Internal Medicine Pulmonary Disease | DX: F19.10 Other psychoactive substance abuse, uncomplicated (principal); L03.90 Cellulitis, unspecified; G93.40 Encephalopathy, unspecified; T50.901A Poisoning by unspecified drugs, medicaments and biological substances, accidental (unintentional), initial encounter | CPT/HCPCS: 99238; 99499 ==

== ENCOUNTER 2025-03-19 17:54 | Inpatient (IN) | payer OTHER, SELFPAY ==
[2025-03-19] VITALS (18 sets, daily range): BP systolic 100–154; BP diastolic 59–117; PULSE 104–156; RESP 16–29; TEMP 34–39.3; O2SAT 63–100; BMI 20.3
--- NOTE | ~2025-03-19 | CT_ITS ---
CLINICAL HISTORY: non focal ams, sz CT head without contrast Comparison: MR - MR HEAD/BRAIN WO/W CON - 09/07/24 13:[address]/SR - CT HEAD/BRAIN WO IV CON - 09/06/24 08:20 EST Findings: The size and shape of the ventricular system is within normal limits for this patient's age. Attenuation of the brain parenchyma is within normal limits. Bradford-white differentiation is preserved. No midline shift or mass effect. No intracranial hemorrhage. There is absence of a large portion of the bony and cartilaginous nasal septum as seen on prior MRI study. No acute fractures. IMPRESSION: 1. No acute intracranial findings. Specifically, no hemorrhage or midline shift. 2. Absence of large portion of the nasal septum. This can be seen with toxic exposures or granulomatous disease This document has been electronically signed by: Ashish Goncalves MD on 03/19/2025 22:04:15
--- NOTE | ~2025-03-19 | XR_ITS ---
CLINICAL HISTORY: ETT withdrawn 2 cm 1 view chest x-ray. Comparison: CR - XR CHEST 1V - 03/19/25 22:56 EDT Findings: Endotracheal tube is been retracted and is now 1.5 cm above the heather. OG tube has been advanced with tip in the proximal stomach and side hole in the distal esophagus. No other interval change from the recent prior chest x-ray. IMPRESSION: Endotracheal tube and OG tube as above. This document has been electronically signed by: Kane Mcallister MD on 03/20/2025 00:26:49
--- NOTE | ~2025-03-19 | XR_ITS ---
CLINICAL HISTORY: hypoxia 1 view chest x-ray Comparison: CR - XR CHEST 1V - 09/06/24 08:24 EST CR/GA - CHEST 2 VIEWS - 07/01/18 14:07 EST Findings: The lungs are clear. Heart size is normal. No acute fracture. IMPRESSION: 1. No acute findings. This document has been electronically signed by: Stefania Apodaca MD on 03/19/2025 19:24:10
--- NOTE | ~2025-03-19 | XR_ITS ---
CLINICAL HISTORY: post ETT RIJ,OG 1 view chest x-ray Comparison: CT/SR - CT ANGIO CHEST PE PROTOCOL - 03/19/25 20:59 EDT CR - XR CHEST 1V - 03/19/25 18:36 EDT Findings: Patient has been intubated. Endotracheal tube is low in position of the level of the heather. Retraction by 2-3 cm is suggested. Enteric sump tube has been placed. Tip projects over the central portion of the lower chest, likely within the distal esophagus. Side port projects just caudad to the heather, presumably within the mid esophagus. Advancement is suggested by at least [address] the side-port into the gastric body. Right internal jugular central venous catheter has been placed with tip projected over the distal superior vena cava. No pneumothorax. Cardiac silhouette is within normal limits. Increasing areas of consolidation within the left perihilar region and left lung base as also evident on the patient's earlier CT scan. Mild streaky density in the right lung base. IMPRESSION: 1. Support apparatus as above. Retraction of the endotracheal tube and advancement of the enteric sump tube is suggested. 2. Worsening areas of consolidation within the left mid lung and left lung base most characteristic of pneumonia. This document has been electronically signed by: Ashish Goncalves MD on 03/19/2025 23:39:09
--- NOTE | ~2025-03-19 | CT_ITS ---
CLINICAL HISTORY: Septic, suspect endocarditis, hypoxic CT angiography chest with contrast. MIP postprocessing. Comparison: CR - XR CHEST 1V - 03/19/25 18:[address]/SR - CT CHEST WO IV CON - 09/06/24 10:22 EST Findings: Images degraded by patient motion. This results in very poor evaluation of the pulmonary arteries. Only a large central pulmonary embolus can be excluded. Smaller pulmonary emboli can be neither confirmed nor excluded on this exam. Thoracic aorta is grossly unremarkable. Overall heart size within normal limits. Emphysematous changes seen throughout the lungs. Multifocal areas of nodular infiltrate are seen within the lingula and left lower lobe correspond to the patient's chest x-ray abnormality from earlier today. Mild streaky density in the right middle lobe suggestive of atelectasis or scarring. Again, the evaluation of the lung parenchyma is limited due to respiratory motion. No pleural effusion or pneumothorax. Upper abdominal images are severely limited by patient motion. There is prominent stool throughout the colon. No obvious acute fracture. IMPRESSION: 1. Severe study limitation due to patient motion. 2. Only a large central pulmonary embolus can be identified. 3. Multifocal areas of nodular consolidation within the lingula and left lower lobe most characteristic of multifocal pneumonia. This document has been electronically signed by: Ashish Goncalves MD on 03/19/2025 22:05:09
--- NOTE | 2025-03-19 17:58 | ED_ITS ---
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 respiratory therapy documentation ? The patient tolerated the procedure well. Post intubation films were obtained which showed proper placement and position. Critical Care Time Critical Care Time Critical Care Time: Yes Total Critical Care Time: 100 Attestation: ED Critical Care: Sepsis, tachycardic dehydrated, severe acute anemia Possibly endocarditis Authorized and Performed by: Edmundo Wray MD Total critical care time: Approximately 100 Due to a high probability of clinically significant, life threatening deterioration, the patient required my highest level of preparedness to intervene emergently and I personally spent this critical care time directly and personally managing the patient. This critical care time included obtaining a history; examining the patient; pulse oximetry; ordering and review of studies; arranging urgent treatment with development of a management plan; evaluation of patient's response to treatment; frequent reassessment; and, discussions with other providers. This critical care time was performed to assess and manage the high probability of imminent, life-threatening deterioration that could result in multi-organ failure. It was exclusive of separately billable procedures and treating other patients and teaching time. Discharge Plan Discharge Clinical Impression: Drug overdose, Cocaine intoxication, Encephalopathy, toxic Patient Disposition: Admitted As Inpatient
[2025-03-19] MEDS: Albuterol Sulfate 5 MG, Albuterol/Iprat 2.5/0.5MG 3 ML 3 ML INHALE (18:25)
[2025-03-19 19:03] LABS: ABG HCO3 25 mmol/L (22-26)
[2025-03-19] MEDS: LACTATED RINGERS 1707.78 ML IV (19:06)
[2025-03-19 19:07] LABS: ABG Refer to POC result
[2025-03-19 19:11] LABS: Alanine Aminotransferase 13 U/L (0-31); Albumin Level 4.4 g/dL (3.5-5.0); Alkaline Phosphatase 83 U/L (39-117); Anion Gap 16 (12-20); Aspartate Amino Transferase 26 U/L (5-31); Blood Urea Nitrogen 9 mg/dL (9-16); Calcium 9.3 mg/dL (8.4-10.2); Carbon Dioxide 23 mmol/L (22-29); Chloride 104 mmol/L (96-108); Creatinine Clr Calc Pharmacy 87.3; Estimated Glomerular Filt Rate > 60; Potassium 3.5 mmol/L (3.3-5.1); Sodium 139 mmol/L (135-145); Total Protein 8.0 g/dL (6.5-8.0)
--- NOTE | 2025-03-19 19:12 | PC.NURSE ---
Pt arrived from EMS, A+OX3 with some confusion, responsive to verbal stimuli. Pt desatted on Room air and placed on O2. Pt denies any pain. RR even and unlabored. Provider placed midline in L upper arm d/t difficulty getting IV access. Pt is sleepy but arousable. Pt sts she did a speedball, was pulled out of car.
--- NOTE | 2025-03-19 19:23 | ECG_ITS ---
Test Reason : SEIZURE Blood Pressure : */* mmHG Vent. Rate : 111 BPM Atrial Rate : 111 BPM P-R Int : 130 ms QRS Dur : 90 ms QT Int : 346 ms P-R-T Axes : 57 61 60 degrees QTcB Int : 470 ms Sinus tachycardia Otherwise normal ECG When compared with ECG of 30-Dec-2024 03:03, No significant change was found Referred By: Edmundo Wray Electronically Signed By: CHI VERDE
[2025-03-19 19:25] LABS: Magnesium 2.2 mg/dL (1.6-2.6)
[2025-03-19 19:27] LABS: Acetaminophen LAB < 3 mcg/mL (<30); Salicylate < 5.0 mg/dL (15-30)
[2025-03-19 19:29] LABS: COVID-19 Test Negative (Negative); IDNOW Serial# 55D5AD1C
[2025-03-19 19:35] LABS: Hematocrit 21.8 % (37.0-47.0); Imm Gran Abs Auto 0.02 X10*3/uL (0.00-0.03); Imm Gran Pct Auto 0.2 % (0.0-0.4); Lymphocytes Absolute Auto 0.9 X10*3/uL (1.2-4.9); Mean Corpuscular HGB Conc 30.3 g/dl (31.0-35.0); Mean Corpuscular Hemoglobin 19.4 pg (27.0-33.0); NRBC Abs Auto 0.000 X10*3/uL (0.0-0.012); NRBC Pct Auto 0.0 /100WBC (0.0-0.2); Platelet Count 283 X10*3/uL (160-400); Red Blood Count 3.40 X10*6/uL (4.20-5.50); White Blood Count 8.2 X10*3/uL (4.8-10.8)
[2025-03-19 19:36] LABS: Mean Corpuscular Volume 64.1 fL (80.0-98.0)
[2025-03-19 19:38] LABS: Hemoglobin 6.6 g/dl (12.0-16.0)
[2025-03-19 19:40] LABS: MANUAL DIFF FLAG NO
[2025-03-19 20:56] LABS: Appearance Urine Clear; Glucose Urine UA Negative (Negative); PH 6.0 (5.0-9.0); Specific Gravity - Urine 1.015 (1.005-1.025)
[2025-03-19 20:57] LABS: Reflex Lactate? Lactic Acid Added
[2025-03-19 21:11] LABS: Cannabinoid Screen Urine Not Detected (Not Detect)
[2025-03-19] MEDS: iohexoL 350 MG/ML 100 ML INFUS..BTL 65 ML IV (21:20)
[2025-03-19] MEDS: Acetaminophen Supp 650 MG SUPP.RECT PR (21:40)
--- NOTE | 2025-03-19 22:10 | PC.NURSE ---
Pt intubated, airway maintained
--- NOTE | 2025-03-19 22:13 | PC.RT ---
RT called to bedside for pt requiring intubation for airway protection. Pt pre-oxygenated w/ NRB. Pt control intubated by w/ 8.0 ETT 25cm@lips. ETT confirmed w/ colormetric color change, ETCO2 reading on monitor, condensation, and bilateral breath sounds. ETT secured and offloaded. Pt placed on mechanical ventilation as documented. Pt cintia current settings well, will continue to monitor.
[2025-03-19] MEDS: fentaNYL citrate/NS 1,000 MCG/100 ML PLAST..BAG 2.5 MCG IVCONT (22:14)
[2025-03-19 23:29] LABS: Troponin-I High Sensitivity 4.5 ng/L (<3.5-17.0)
[2025-03-19] MEDS: Etomidate 20 MG/10 ML VIAL IVPUSH (23:33)
[2025-03-19 23:34] LABS: B Type Natriuretic Peptide < 10 pg/mL (<100)
[2025-03-20] VITALS (35 sets, daily range): BP systolic 92–125; BP diastolic 54–77; PULSE 86–116; RESP 17–29; TEMP 34–38.3; O2SAT 91–100; BMI 21.5
[2025-03-20] MEDS: Lactated Ringers 1,000 ML 999 ML IV
[2025-03-20] MEDS: levETIRAcetam in NaCl (iso-os) 1,500 MG/100 ML PIGGYBACK 400 MG IV
[2025-03-20 00:12] LABS: ~Lactic Acid-LAB USE ONLY 1.5 mmol/L (0.5-2.0)
--- NOTE | 2025-03-20 00:44 | P.HPCC_ITS ---
History of Present Illness Date of Service: 03/20/25 Attending physician on admission: Nilda Mcgee Chief Complaint: Overdose Ms. Pittman is a 34-year-old female with a past medical history of necrotizing pneumonia, endocarditis, seizure disorder secondary to? polysubstance abuse with IVDU, ADHD, anxiety who was found in a car nearly unconscious. She told EMS she did a ?speed ball? and was given midazolam IM en route. Of note, the patient has been seen multiple times this year for similar complaint. On arrival to the emergency room, the patient's blood pressure 111/78, heart rate 125, temp 98.6, O2 sat 90% on 6L NC Laboratory data significant for hemoglobin 6.6, hematocrit 21.8, red blood cell indices indicative of iron deficiency anemia, lactic acid 2.1/1.5, phos 2.3, CRP 1.00. ABG 4.43 37 122 25.? UDS positive for methadone, fentanyl, benzos, cocaine.? COVID-19 screen negative. Imaging: ? Head CT negative for hemorrhage or midline shift.? Chest CT limited due to patient motion.? Central PE excluded, multifocal pneumonia noted lingula and left lower lobe. ED COURSE:? The patient received 1 unit PRBC.? She was given 1708 mL LR per sepsis protocol,? Zosyn 3.375 g, vanco 1500 mg, Keppra 1500 mg, acetaminophen 650 mg, midazolam 2 mg.? She became agitated with intermittent hypoxia, not tolerating oxyMask and was intubated for airway protection. Review of Systems 2 Review of Systems: Yes unobtainable due to endotracheal tube PMFSH Past Medical History Medical History (Updated 03/20/25 @ 02:14 by Kylie Enrique NP) Polysubstance abuse Toxic metabolic encephalopathy Social History Social History Household Members: Family Household Members Other:: states recently moved in w/ her mom Diana Housing: Unknown / Unable to assess Do you presently have visiting nurse or other home services: No Unable to assess alcohol history related to: Unable to respond Patient Tobacco Use Status: Never used Tobacco Use of substances other than those prescribed or required for medical reasons: Yes Substance Use Type: Crack/Cocaine and Heroin Substance Use Frequency: Chronic Longstanding Last Used Substance: Just Prior to Admission Advance Directives: No Advance Directives Information Provided: No Do you have a plan to hurt others: No Plan Patient : No service: No Meds Allergies Allergy/AdvReac Type Severity Reaction Status Date / Time No Known Allergies Allergy Verified 03/19/25 18:05 Active Medications: Current Medications Enoxaparin Sodium (Enoxaparin Sodium 40 Mg/0.4 Ml Syringe) 40 mg SUBCUT Q12H MECHELLE Propofol (Diprivan) 1,000 mg in 100 mls @ 0 mls/hr IVCONT .Q0M MECHELLE; Protocol Last Admin: 03/19/25 22:02 Dose: 30 mcg/kg/min, 10.25 mls/hr Fentanyl (Sublimaze/Ns) 1,000 mcg in 100 mls @ 0 mls/hr IVCONT .Q0M MECHELLE; Protocol Last Admin: 03/19/25 22:14 Dose: 25 mcg/hr, 2.5 mls/hr Propofol (Diprivan) 1,000 mg in 100 mls @ 0 mls/hr IVCONT .Q0M MECHELLE; Protocol Piperacillin Sod/Tazobactam (Sod 3.375 gm/ Sodium Chloride) 50 mls @ 100 mls/hr IV Q6H MECHELLE Levetiracetam (Keppra) 1,000 mg in 100 mls @ 400 mls/hr IV Q12H MECHELLE Naloxone HCl (Naloxone Hcl 0.4 Mg/Ml Vial) 0.2 mg IVPUSH Q2M PRN PRN Reason: Excessive sedation or RR < 8 Pharmacy Consult (Consult Rx Vancomycin Dosing) 1 each MISCELLANE DAILY PRN PRN Reason: Consult order Home Medications ?Medication ?Instructions ?Recorded ?Confirmed ?Last Taken ?Type albuterol sulfate 90 mcg/actuation 2 puff inhalation Q 4H PRN 09/06/24 12/30/24 Unknown History aerosol inhaler (Ventolin HFA) Shortness Of Breath Or Wheezing alprazolam 2 mg tablet 2 mg PO QID PRN anxiety 08/2212/30/24 Unknown History clonidine HCl 0.2 mg tablet 0.2 mg PO BEDTIME 09/06/24 12/30/24 Unknown History dextroamphetamine-amphetamine 15 1 tab PO TID 09/06/24 12/30/24 Unknown History mg tablet escitalopram oxalate 10 mg tablet 10 mg PO DAILY 09/0612/30/24 Unknown History hydroxyzine HCl 50 mg tablet 50 mg PO BID PRN anxiety 09/06/24 12/30/24 Unknown History bupropion HCl 300 mg 24 hr tablet, 300 mg PO DAILY 06/1512/30/24 Unknown History extended release Physical Exam 2 Vital Signs: Vital Signs: Last Vital Signs Temp 101.8 F H 03/19/25 21:58 Pulse 140 H 03/19/25 22:14 Resp 18 03/19/25 21:58 BP 137/91 H 03/19/25 21:58 Pulse Ox 91 L 03/19/25 20:45 O2 Del Method Oxymask 03/19/25 18:48 O2 Flow Rate 4 03/19/25 20:45 FiO2 30 03/19/25 23:21 Oxygen Flow Rate 6 03/19/25 18:02 BMI result Body Mass Index 20.3 Const: General: no acute distress, ill appearing and poor hygiene HEENT: Head: Yes normocephalic and Yes atraumatic General nose exam: Normal external nose present (Nares patent, septum midline, sinuses nontender bilaterally.) Neck: Neck: Yes supple (no thyromegaly, trachea midline.) Carotids: normal carotid upstroke Resp: Auscultation: clear to auscultation bilaterally (normal work of breathing, no accessory muscle use) Cardio: Jugular venous distension: no JVD Rate: regular rate Rhythm: r egular rhythm Heart sounds: no gallops, no murmurs and no rubs Peripheral pulses: Peripheral pulses 2+ throughout GI: Palpation (GI): Soft to palpation (nondistended.) and nontender Skin: Wounds: wounds noted right lower forearm size, drainage (purulent), open (multiple open areas) and with surrounding erythema Extrem: General: Yes full ROM and Yes capillary refill normal Right upper extremity: elbow/forearm Details: swelling Location: of the mid-shaft forearm; no crepitus and no foreign bodies Results Labs 03/19/25 19:29 03/19/25 18:33 Labs: Laboratory Results - last 24 hr 03/19/25 03/19/25 03/19/25 18:33 18:46 18:54 MCV MCH MCHC RDW Plt Count MPV Immature Gran % (Auto) Neut % (Auto) Lymph % (Auto) [place] % (Auto) Eos % (Auto) Baso % (Auto) Lymph # (Auto) [place] # (Auto) Eos # (Auto) Baso # (Auto) Abs Immat Gran (auto) Absolute Neuts (auto) Absolute Nucleated RBC Nucleated RBC % (auto) O2 Saturation ABG pH at Pt Temp ABG pCO2 at Pt Temp ABG pO2 at Pt Temp ABG HCO3 ABG Base Excess (Actual) Anion Gap 16 Estim Creat Clear Calc 87.3 Estimated GFR > 60 Random Glucose 137 H Lactic Acid 2.1 H* Lactic Acid F/U @ 2Hr Calcium 9.3 Phosphorus 2.3 L Magnesium 2.2 Total Bilirubin 0.2 AST 26 ALT 13 Alkaline Phosphatase 83 Total Creatine Kinase 81 C-Reactive Protein 1.00 H B-Natriuretic Peptide Total Protein 8.0 Albumin 4.4 Beta HCG, Quant < 2 Urine Color Urine Appearance Urine pH Ur Specific [place] Urine Protein Urine Glucose (UA) Urine Ketones Urine Blood Urine Nitrite Ur Leukocyte Esterase Salicylates < 5.0 L Urine Opiates Screen Ur Buprenorphine Scrn Ur Oxycodone Screen Urine Methadone Screen Urine Fentanyl Screen Acetaminophen < 3 Ur Barbiturates Screen Ur Phencyclidine Scrn Ur Amphetamines Screen U Benzodiazepines Scrn Urine Cocaine Screen U Marijuana (THC) Screen Ethyl Alcohol < 10 COVID-19 (JOLEEN) Negative COVID-19 Clin Com See Note Blood Type Antibody Screen Crossmatch 03/19/25 03/19/25 03/19/25 18:59 19:29 20:00 MCV 64.1 L MCH 19.4 L MCHC 30.3 L RDW 16.7 H Plt Count 283 MPV 8.8 L Immature Gran % (Auto) 0.2 Neut % (Auto) 84.5 H Lymph % (Auto) 11.2 L [place] % (Auto) 3.6 Eos % (Auto) 0.4 Baso % (Auto) 0.1 Lymph # (Auto) 0.9 L [place] # (Auto) 0.3 Eos # (Auto) 0.0 Baso # (Auto) 0.0 Abs Immat Gran (auto) 0.02 Absolute Neuts (auto) 6.9 Absolute Nucleated RBC 0.000 Nucleated RBC % (auto) 0.0 O2 Saturation TNP ABG pH at Pt Temp 7.43 ABG pCO2 at Pt Temp 37 ABG pO2 at Pt Temp 122 H ABG HCO3 25 ABG Base Excess (Actual) 1.5 Anion Gap Estim Creat Clear Calc Estimated GFR Random Glucose Lactic Acid Lactic Acid F/U @ 2Hr Calcium Phosphorus Magnesium Total Bilirubin AST ALT Alkaline Phosphatase Total Creatine Kinase C-Reactive Protein B-Natriuretic Peptide < 10 Total Protein Albumin Beta HCG, Quant Urine Color Urine Appearance Urine pH Ur Specific [place] Urine Protein Urine Glucose (UA) Urine Ketones Urine Blood Urine Nitrite Ur Leukocyte Esterase Salicylates Urine Opiates Screen Ur Buprenorphine Scrn Ur Oxycodone Screen Urine Methadone Screen Urine Fentanyl Screen Acetaminophen Ur Barbiturates Screen Ur Phencyclidine Scrn Ur Amphetamines Screen U Benzodiazepines Scrn Urine Cocaine Screen U Marijuana (THC) Screen Ethyl Alcohol COVID-19 (JOLEEN) COVID-19 Clin Com Blood Type O Positive Antibody Screen NEGATIVE Crossmatch See Detail 03/19/25 03/19/25 20:49 23:43 MCV MCH MCHC RDW Plt Count MPV Immature Gran % (Auto) Neut % (Auto) Lymph % (Auto) [place] % (Auto) Eos % (Auto) Baso % (Auto) Lymph # (Auto) [place] # (Auto) Eos # (Auto) Baso # (Auto) Abs Immat Gran (auto) Absolute Neuts (auto) Absolute Nucleated RBC Nucleated RBC % (auto) O2 Saturation ABG pH at Pt Temp ABG pCO2 at Pt Temp ABG pO2 at Pt Temp ABG HCO3 ABG Base Excess (Actual) Anion Gap Estim Creat Clear Calc Estimated GFR Random Glucose Lactic Acid Lactic Acid F/U @ 2Hr 1.5 Calcium Phosphorus Magnesium Total Bilirubin AST ALT Alkaline Phosphatase Total Creatine Kinase C-Reactive Protein B-Natriuretic Peptide Total Protein Albumin Beta HCG, Quant Urine Color Yellow Urine Appearance Clear Urine pH 6.0 Ur Specific [place] 1.015 Urine Protein Negative Urine Glucose (UA) Negative Urine Ketones Negative Urine Blood Negative Urine Nitrite Negative Ur Leukocyte Esterase Negative Salicylates Urine Opiates Screen Not Detected Ur Buprenorphine Scrn Not Detected Ur Oxycodone Screen Not Detected Urine Methadone Screen Positive H Urine Fentanyl Screen POSITIVE H Acetaminophen Ur Barbiturates Screen Not Detected Ur Phencyclidine Scrn Not Detected Ur Amphetamines Screen Not Detected U Benzodiazepines Scrn POSITIVE H Urine Cocaine Screen POSITIVE H U Marijuana (THC) Screen Not Detected Ethyl Alcohol COVID-19 (JOLEEN) COVID-19 Clin Com Blood Type Antibody Screen Crossmatch Assessment and Plan (1) Drug overdose: Qualifiers: Encounter type: subsequent encounter Injury intent: undetermined intent Qualified Code(s): T50.904D - Poisoning by unspecified drugs, medicaments and biological substances, undetermined, subsequent encounter Status: Acute (2) Anemia: Qualifiers: Anemia type: unspecified type Qualified Code(s): D64.9 - Anemia, unspecified Status: Acute (3) Cellulitis: Qualifiers: Laterality: right Site of cellulitis: extremity Site of cellulitis of extremity: upper extremity Qualified Code(s): L03.113 - Cellulitis of right upper limb Status: Acute Plan 34-year-old female with history of necrotizing pneumonia, endocarditis, seizure disorder secondary to polysubstance abuse with IVDU, ADHD, anxiety admitted after drug overdose for management of multifocal pneumonia c/b?agitation, hypoxia necessitating intubation. Plan: Neuro: ?Acute alteration of mental status secondary to substance overdose.? History of seizure on Keppra.? Cardiac: No acute issues. History of endocarditis. Bedside echo showed mobile mass possible vegetation on the tricuspid valve.? No leukocytosis, no hypotension. Given empiric antibiotics and treated for sepsis in emergency room due to history.? Pulmonary:? Chest CT?showed multifocal pneumonia. Continue empiric antibiotics. Wean off ventilatory support as able. Renal:? No acute issues. Endo:? ?No acute issues. GI: ? No acute issues. ID: ??No evidence of sepsis. ?No leukocytosis, no hypotension. Given empiric antibiotics and treated for sepsis with 30 mL/kg crystalloids in? ED due to history.? Heme/Onc: Underlying anemia.? Patient denied any blood in stool, hematemesis or previous GI bleed.? 1 unit PRBC given in ED. Iron studies pending. Psych: Tox screen positive, OD.? Pt arrived with section [address] Addiction medicine, director social service consult placed. Misc: Cellulits/wound likely due to IVDU covering about ? right lower forearm. Wound consult, ID consult placed. Blood cultures pending. Diet: ? NPO Prophylaxis: ? ?Lovenox Total time managing care of this patient today: 60 minutes.
[2025-03-20] MEDS: fentaNYL citrate/NS 1,000 MCG/100 ML PLAST..BAG 17.5 MCG IVCONT ×2 (03:01→08:25)
--- NOTE | 2025-03-20 04:30 | HO.SKINPHOTO ---
Location: Right Forearm
[2025-03-20 04:53] LABS: VBG HCO3 26 mmol/L (22-26); VBG O2 % Saturation 79.0 %
[2025-03-20 04:53] LABS: MANUAL DIFF FLAG NO
[2025-03-20 04:55] LABS: Hematocrit 23.8 % (37.0-47.0); Hemoglobin 7.6 g/dl (12.0-16.0); Imm Gran Abs Auto 0.08 X10*3/uL (0.00-0.03); Imm Gran Pct Auto 0.5 % (0.0-0.4); Lymphocytes Absolute Auto 1.2 X10*3/uL (1.2-4.9); Mean Corpuscular HGB Conc 31.9 g/dl (31.0-35.0); Mean Corpuscular Hemoglobin 21.5 pg (27.0-33.0); Mean Corpuscular Volume 67.2 fL (80.0-98.0); NRBC Abs Auto 0.000 X10*3/uL (0.0-0.012); NRBC Pct Auto 0.0 /100WBC (0.0-0.2); Platelet Count 244 X10*3/uL (160-400); Red Blood Count 3.54 X10*6/uL (4.20-5.50); White Blood Count 16.1 X10*3/uL (4.8-10.8)
[2025-03-20 04:55] LABS: Venous Blood Gas Refer to POC result
[2025-03-20 05:16] LABS: Albumin Level 3.1 g/dL (3.5-5.0); Anion Gap 10 (12-20); Blood Urea Nitrogen 6 mg/dL (9-16); Calcium 8.2 mg/dL (8.4-10.2); Carbon Dioxide 25 mmol/L (22-29); Chloride 111 mmol/L (96-108); Creatinine Clr Calc Pharmacy 119.3; Estimated Glomerular Filt Rate > 60; Magnesium 1.8 mg/dL (1.6-2.6); Potassium 3.4 mmol/L (3.3-5.1); Sodium 143 mmol/L (135-145)
[2025-03-20] MEDS: Potassium Phosphate/NS 15 MMOL/250 ML PLAST..BAG 62.5 MMOL IV ×2 (06:03→10:08)
--- NOTE | 2025-03-20 06:28 | PC.NURSE ---
Arrived to ICU approx 0030 from ED. Pt intubated and sedated. Propofol and Fentanyl infusing upon arrival - see MAR for titrations.? ETT #8.0, 23 cm?@ lip, on ACVC settings - see vent assessment.? SR on tele, HR 90s, MAP > 65. OGT clamped. Dangelo in place draining straw colored urine, output 100-300 ml/hr.?R forearm cellulitis with open wounds and necrosis, gauze wrap in place. Photo in chart, Wound/ID consult placed by JAMES Enrique. Hygiene provided, safety measures in place.?
--- NOTE | 2025-03-20 07:32 | PHA.PROG ---
Admission Date/Time: March 19, 2025 22:35 Indication: other Weight in k.3 kg Adjusted body weight in Kg: Moira body weight in Kg: Obesity Dosing Indication % IBW: BMI 21.5 Serum Creatinine - Last 168 Hours 03/19/25 03/20/25 18:33 04:44 Creatinine 0.80 0.61 Estimated CrCl and GFR - Last 168 Hours 03/19/25 03/20/25 18:33 04:44 Estim Creat Clear Calc 87.3 119.3 Estimated GFR > 60 > 60 Vancomycin Loading Dose: 1500mg x1 Current Vancomycin Dosing Regimen: 1250mg Q12H Vancomycin Monitoring using AUC goal of 400 - 600 range with trough as surrogate marker: 574 Date and Time for next Vancomycin Level to be drawn: 03/21 @1000 Pharmacist Comments on Vancomycin Plan: pt's renal function improved from yesterday. Targeting trough of 16.2 with current dosing. To be adjusted after trough tomorrow. Vancomycin dosing will take advantage of [employer] as a clinical decision support tool that uses Bayesian modeling to calculate individual patient's pharmacokinetic parameters and forecast the patient's drug concentration time course with the target goal AUC 24 range of 400 - 600 mg/L/hr.
[2025-03-20] MEDS: Chlorhexidine Gluc Oral Rinse 15 ML MOUTHWASH BUCCAL ×3 (08:25→20:33)
--- NOTE | 2025-03-20 08:49 | PHA.MEDREC ---
Pharmacy Consult ? Medication Reconciliation Pharmacy has completed the medication reconciliation.Med rec complete, spoke to patient's mom and who were not completely sure what patient normally takes. They did confirm she was supposed to be on keppra but had run out. Patient had started on methadone, pending verification from clinic, dose at 50 or 55 mg per .
[2025-03-20] MEDS: Midazolam HCl/NS 50 MG/50 ML PLAST..BAG IVCONT ×2 (09:55→22:54)
[2025-03-20] MEDS: Albumin Human 25 % 50 ML 100 ML IV (10:18)
[2025-03-20] MEDS: Calcium Gluconate/NaCl,Iso-Osm 1 GM/50 ML PLAST..BAG IV (10:23)
[2025-03-20] MEDS: Albuterol/Iprat 2.5/0.5MG 3 ML AMPUL.NEB INHALE ×3 (11:22→19:51)
--- NOTE | 2025-03-20 19:01 | PC.NURSE ---
Assumed care of patient 0700. Patient is vented and sedated for airway protection and recent seizures. Per MD, Fentanyl gtt discontinued and Versed gtt @2 mg/hr. Pt tolerated well, no new seizure activity. Bed bath provided 11:00AM. Patient turned and repositoned Q2HR.
[2025-03-20] MEDS: levETIRAcetam in NaCl (iso-os) 1,000 MG/100 ML PIGGYBACK 400 MG IV (20:33)
[2025-03-21] VITALS (37 sets, daily range): BP systolic 102–131; BP diastolic 63–94; PULSE 83–116; RESP 19–35; TEMP 34–38.2; O2SAT 92–100; BMI 22.1
[2025-03-21] MEDS: Albuterol/Iprat 2.5/0.5MG 3 ML AMPUL.NEB INHALE ×4 (03:18→21:08)
[2025-03-21 05:07] LABS: VBG HCO3 22 mmol/L (22-26); VBG O2 % Saturation 85.0 %
[2025-03-21 05:20] LABS: Venous Blood Gas Refer to POC result
[2025-03-21 05:25] LABS: MANUAL DIFF FLAG NO
[2025-03-21 05:30] LABS: Hematocrit 23.1 % (37.0-47.0); Hemoglobin 7.2 g/dl (12.0-16.0); Imm Gran Abs Auto 0.05 X10*3/uL (0.00-0.03); Imm Gran Pct Auto 0.5 % (0.0-0.4); Lymphocytes Absolute Auto 1.0 X10*3/uL (1.2-4.9); Mean Corpuscular HGB Conc 31.2 g/dl (31.0-35.0); Mean Corpuscular Hemoglobin 20.9 pg (27.0-33.0); Mean Corpuscular Volume 67.0 fL (80.0-98.0); NRBC Abs Auto 0.000 X10*3/uL (0.0-0.012); NRBC Pct Auto 0.0 /100WBC (0.0-0.2); Platelet Count 227 X10*3/uL (160-400); Red Blood Count 3.45 X10*6/uL (4.20-5.50); White Blood Count 10.6 X10*3/uL (4.8-10.8)
[2025-03-21 05:45] LABS: Albumin Level 3.1 g/dL (3.5-5.0); Anion Gap 14 (12-20); Blood Urea Nitrogen 7 mg/dL (9-16); Calcium 8.2 mg/dL (8.4-10.2); Carbon Dioxide 20 mmol/L (22-29); Chloride 110 mmol/L (96-108); Creatinine Clr Calc Pharmacy 113.7; Estimated Glomerular Filt Rate > 60; Magnesium 1.9 mg/dL (1.6-2.6); Potassium 3.5 mmol/L (3.3-5.1); Sodium 140 mmol/L (135-145)
--- NOTE | 2025-03-21 06:48 | PM.CCPN ---
Subjective Subjective Date of Service: 03/21/25 Interval History: no significant overnight events Critical Care Time (minutes): 60 Physical Exam Vital Signs: Vital Signs: Last Vital Signs Temp 99.9 F 03/21/25 06:00 Pulse 105 H 03/21/25 06:00 Resp 21 H 03/21/25 06:00 BP 106/63 03/21/25 06:00 Pulse Ox 98 03/21/25 06:00 O2 Del Method Mechanical Ventil ation 03/21/25 06:00 O2 Flow Rate 4 03/19/25 23:00 FiO2 24 03/21/25 06:00 Oxygen Flow Rate 6 03/19/25 18:02 BMI result Body Mass Index 22.1 Const: Other: intubated, sedated; no appreciable spontaneous movements General: comfortable, no acute distress and well developed HEENT: Head: Yes normal to inspection, Yes normocephalic and Yes atraumatic Eyes: General: appearance normal, both eyes and all related structures Neck: Neck: Yes normal visual inspection, Yes full ROM, Yes trachea midline and Yes supple Chest: Chest palpation & inspection: normal inspection of the chest Resp: Other: no appreciable rales, rhonchi, wheezing Effort & Inspection: normal respiratory effort Cardio: Rate: tachycardic Rhythm: regular rhythm GI: Inspection: Yes normal to inspection, No Abdominal wall edema and No distended Palpation (GI): Soft to palpation, not firm, nontender, no guarding and not rigid Skin: General skin exam: no rashes or lesions noted Neuro: General: tone normal Extrem: General: Yes normal to inspection, Yes full ROM, Yes capillary refill normal and Yes no clubbing, cyanosis or edema Psych: Other: unable to assess Objective Data Labs 03/21/25 05:00 03/21/25 05:00 Labs: Laboratory Results - last 24 hr 03/21/25 03/21/25 05:00 05:04 WBC 10.6 RBC 3.45 L Hgb 7.2 L Hct 23.1 L MCV 67.0 L MCH 20.9 L MCHC 31.2 RDW 19.9 H Plt Count 227 MPV 8.8 L Immature Gran % (Auto) 0.5 H Neut % (Auto) 83.5 H Lymph % (Auto) 9.5 L [place] % (Auto) 4.6 Eos % (Auto) 1.7 Baso % (Auto) 0.2 Lymph # (Auto) 1.0 L [place] # (Auto) 0.5 Eos # (Auto) 0.2 Baso # (Auto) 0.0 Abs Immat Gran (auto) 0.05 H Absolute Neuts (auto) 8.8 H Absolute Nucleated RBC 0.000 Nucleated RBC % (auto) 0.0 VBG pH 7.59 H VBG pCO2 23 VBG pO2 51 VBG HCO3 22 VBG O2 Saturation 85.0 VBG Base Excess 1.6 Sodium 140 Potassium 3.5 Chloride 110 H Carbon Dioxide 20 L Anion Gap 14 BUN 7 L Creatinine 0.64 Estim Creat Clear Calc 113.7 Estimated GFR > 60 Random Glucose 87 Calcium 8.2 L Phosphorus 3.7 Magnesium 1.9 Albumin 3.1 L Blood Type O Positive Antibody Screen NEGATIVE Microbiology Microbiology Results: Microbiology 03/19/25 18:41 Blood - Venous Blood Culture - Preliminary No growth after 24 hours. 03/19/25 18:41 Blood - Venous Blood Culture - Preliminary No growth after 24 hours. Progress Note: A&P Assessment and plan (1) Seizure: Status: Acute (2) Acute hypoxic respiratory failure: Status: Acute Plan Patient is a 34 Y F w/ polysubstance misuse, c/b endocarditis, and reportedly seizures w/ substance use, presenting to ED on 03/19 after found in car, following reportedly multiple seizures earlier in day; in ED, found to be lethargic, in acute hypoxic respiratory failure, necessitating intubation; ED work-up suggestive of pneumonia N: intubated, sedated w/ propofol, midazolam gtt; seizures, on home levetiracetam CV: no acute issues; to closely monitor R: acute hypoxic respiratory failure, likely d/t aspiration pneumonia, d/t encephalopathy from post-ictal state and overdose, intubated 03/20, wean as tolerated; asthma, duonebs PRN GI: no acute issues : no acute issues H: chronic anemia, transfuse as needed; chemical DVT prophylaxis ID: c/f pneumonia, cellulitis vancomycin/zosyn/clindamycin E: no acute issues; monitor hyper-/hypo-glycemia P: polysubstance misuse, addiction medicine when appropriate S: daily updates given to mother Quality Stroke Does the patient have a stroke diagnosis?: No VTE Prior VTE?: No VTE Risk Level:: Medical - moderate - high VTE Device Contraindication: N/A - Device Ordered VTE Drug Contraindication: N/A - Med Ordered
[2025-03-21] MEDS: Calcium Gluconate/NaCl,Iso-Osm 1 GM/50 ML PLAST..BAG IV (07:24)
[2025-03-21] MEDS: Albumin Human 25 % 50 ML 100 ML IV (07:24)
[2025-03-21] MEDS: levETIRAcetam in NaCl (iso-os) 1,000 MG/100 ML PIGGYBACK 400 MG IV ×2 (07:24→19:45)
[2025-03-21] MEDS: Chlorhexidine Gluc Oral Rinse 15 ML MOUTHWASH BUCCAL ×3 (07:24→19:45)
--- NOTE | 2025-03-21 12:05 | MHC.CM.PN ---
EMR REVIEWED, PT VENTED/SEDATED IN ICU, CM ATTEMPTED TO CONTACT PT'S PRIMARY CONTACT ON FILE HOWEVER NO ANSWER AND VOICEMAIL FULL, PT'S MOTHER/SECONDARY CONTACT WAS VISITING AND WANTED TO DISCUSS DRUG REHAB/SEC 12 HOWEVER LEFT FACILITY AND PT UNABLE TO GIVE CONSENT FOR CM TO SPEAK W/HER. NO HCP ON FILE. PER PREVIOUS ICU ADMISSION IN DECEMBER HOWEVER PT LEFT AMA, PT HAS BEEN STAYING W/A FRIEND, INDEP W/ALL CARE, NO NOTED DME OR SA TX/MMTP. PT'S REPORTED HE WAS HCP AND PT'S MOTHER WAS [facility] HOWEVER THERE IS NO COPY ON FILE AND ELE DOES NOT HAVE COPY. CM WILL REVISIT ONCE PT ABLE TO RESPOND.
--- NOTE | 2025-03-21 12:05 | MHC.RECOVRN ---
Pt intubated, not appropriate for SUDE at this time. Recovery Team to approach pt when medically stable.
[2025-03-21] MEDS: Midazolam HCl/NS 50 MG/50 ML PLAST..BAG IVCONT (21:53)
[2025-03-22] VITALS (17 sets, daily range): BP systolic 112–132; BP diastolic 67–89; PULSE 24–113; RESP 18–28; TEMP 35–37.6; O2SAT 96–100; BMI 21.7
[2025-03-22] MEDS: Albuterol/Iprat 2.5/0.5MG 3 ML AMPUL.NEB INHALE ×2 (03:49→07:45)
[2025-03-22 04:29] LABS: VBG HCO3 19 mmol/L (22-26); VBG O2 % Saturation 83.0 %
[2025-03-22 04:30] LABS: MANUAL DIFF FLAG NO
[2025-03-22 04:32] LABS: Hematocrit 23.3 % (37.0-47.0); Hemoglobin 7.3 g/dl (12.0-16.0); Imm Gran Abs Auto 0.03 X10*3/uL (0.00-0.03); Imm Gran Pct Auto 0.4 % (0.0-0.4); Lymphocytes Absolute Auto 1.2 X10*3/uL (1.2-4.9); Mean Corpuscular HGB Conc 31.3 g/dl (31.0-35.0); Mean Corpuscular Hemoglobin 21.0 pg (27.0-33.0); Mean Corpuscular Volume 67.1 fL (80.0-98.0); NRBC Abs Auto 0.000 X10*3/uL (0.0-0.012); NRBC Pct Auto 0.0 /100WBC (0.0-0.2); Platelet Count 228 X10*3/uL (160-400); Red Blood Count 3.47 X10*6/uL (4.20-5.50); White Blood Count 7.0 X10*3/uL (4.8-10.8)
[2025-03-22 04:56] LABS: Albumin Level 3.1 g/dL (3.5-5.0); Anion Gap 17 (12-20); Blood Urea Nitrogen 7 mg/dL (9-16); Calcium 8.2 mg/dL (8.4-10.2); Carbon Dioxide 16 mmol/L (22-29); Chloride 111 mmol/L (96-108); Creatinine Clr Calc Pharmacy 121.3; Estimated Glomerular Filt Rate > 60; Magnesium 1.8 mg/dL (1.6-2.6); Potassium 3.4 mmol/L (3.3-5.1); Sodium 141 mmol/L (135-145)
[2025-03-22 06:05] LABS: Venous Blood Gas Refer to POC result
--- NOTE | 2025-03-22 06:31 | PC.NURSE ---
Assumed care 1900 - pt remains intubated and sedated. On AC settings. Propofol and Versed infusing per MAR. Pt breaking through sedation at times - sitting?up in bed, reaching for ETT.? Versed 2 mg IVP x1 administered with good?effect - see SEP. Camera placed at bedside for safety.?
--- NOTE | 2025-03-22 07:00 | CA_ITS ---
Transthoracic Echocardiogram Patient (Last, First, Middle): Zeny Pittman, Gender: Female Date of : 1990 Age: 34 Procedure Date: 03/22/2025 Procedure Type: Transthoracic Echocardiogram Location: ICU Height: 167.64 cm Weight: 60.78 kg BSA: 1.69 m2 Heart Rate: bpm BP: 126 / 84 mmHg Protective Services Social Worker: TO Referring MD: Kylie Enrique DIRECTOR BEHAVIORAL HEALTH Salesperson [employer]: Jack Gan MD Symptoms: ? endocarditis Study Quality: Technically Difficult/Contrast ECG Rhythm: Sinus Conclusions: - 1. Normal LV ejection fraction 55-60% 2. No obvious vegetations on this study although can not be entirely ruled out 3. Normal cardiac valvular Dopplers 4. No gross pericardial effusion Findings Procedure Information Contrast agent, definity, is being given per protocol without apparent complications. The study quality is limited by the patients inability to tolerate the test and the presence of a ventilator. Left Ventricle Normal left ventricular size, thickness, and systolic function. The visually estimated ejection fraction is between 55-60%. Spectral Doppler is indicative of a normal filling pattern. Right Ventricle Normal right ventricular cavity size and systolic function. Atria Both atria are normal in size. Interatrial shunt cannot be excluded. Aortic Valve The aortic valve structure and function is likely normal. There is no aortic valve stenosis. There is no aortic valve regurgitation. Mitral Valve Likely normal mitral valve structure and function. There is trace mitral valve regurgitation. There is no mitral valve stenosis. Pulmonic Valve The pulmonic valve was not well visualized. Tricuspid Valve Likely normal tricuspid valve structure and function. Tricuspid regurgitation envelope is inadequate for calculation of right ventricular systolic pressure. Indeterminate right atrial pressure. Great Vessels All visible segments of the aorta are normal in size. The pulmonary artery was not well visualized. Venous The inferior vena cava does not collapse with inspiration. patient on positive pressure ventilation Pericardium/Pleural There is no evidence of pericardial effusion. Prior Study Comparison No prior study available for comparison. Recommendations, Care & Conclusions Consider a COURTNEY if clinically appropriate. Measurements 2D Linear Measurements IVSd: 0.69 0.6-0.9/0.6-1.0 cm LVIDd: 4.74 3.9-5.3/4.2-5.9 cm LVIDd Index: 2.80 2.4-3.2/2.2-3.1 cm/m2 LVIDs: 3.47 2.0-3.6 cm LVPWd: 0.64 0.7-1.1 cm LV Mass: 121.84 67-162/88-224 g LV Mass Index: 72.09 43-95/49-115 g/m2 LVOT Diam: 2.20 3.0+(-)1.3 cm 2D Systolic Function EF 4C: 61.10 >55% EF 2C: 52.00 >55% EF BiP: 57.90 >55% Mitral Valve MV Pk E: 0.54 MV PK A: 0.47 MV Decel Time: 145.00 E/A: 1.20 E'Lateral: 11.60 E'Medial: 9.03 E/E' Med: 6.00 E/E' Lat: 4.70 PHT: 42.00 MVA PHT: 5.24 Decel [place]: 3.77 Aortic Valve AoV Pk Jair: 1.12 AoV Mn Jair: 0.74 AoV VTI: 0.19 AoV Pk Grad: 5.00 Aov Mn Grad: 3.00 MILES Cont.VTI: 3.14 LVOT LVOT Pk Jair: 0.89 LVOT Mn Jair: 0.56 LVOT VTI: 0.16 LVOT Pk Grad: 3.00 LVOT Mn Grad: 1.00 LVOT Diam: 2.20 LVOT Area: 3.80 Diastolic Function MV Pk E: 0.54 MV Pk A: 0.47 E/A: 1.20 E'Medial: 9.03 E/E' Med: 6.00 E' Laterial: 11.60 E/E' Lat: 4.70 Right Ventricle TAPSE (mm): 19.30 TVS' Jair: 11.60 Great Vessels Aorta Sinus of Valsalva: 3.29 2.0-3.5 cm Updated in Other Vendor System with Status of Final Jack Gan MD electronically signed on 03/22/2025 1:52:29 PM with status of Final
[2025-03-22] MEDS: levETIRAcetam in NaCl (iso-os) 1,000 MG/100 ML PIGGYBACK 400 MG IV (07:27)
[2025-03-22] MEDS: Chlorhexidine Gluc Oral Rinse 15 ML MOUTHWASH BUCCAL (08:06)
[2025-03-22] MEDS: Ketamine HCl/NS 50 MG/5 ML SYRINGE 100 MG IVPUSH (08:31)
[2025-03-22] MEDS: Calcium Gluconate/NaCl,Iso-Osm 1 GM/50 ML PLAST..BAG IV (08:37)
[2025-03-22] MEDS: Albumin Human 25 % 50 ML 100 ML IV (08:46)
[2025-03-22] MEDS: Midazolam HCl/NS 50 MG/50 ML PLAST..BAG IVCONT (09:31)
[2025-03-22] MEDS: methADONE HCl 20 MG/2 ML ORAL.CONC 50 MG PO (10:25)
--- NOTE | 2025-03-22 10:50 | HE.PHANOTE ---
Vancomycin Vancomycin trough 11.6. Treating PNA/cellulitis. Adjusting dose to 1000 mg q8h for predicted AUC 540. Next level 03/23/25 @0900.
--- NOTE | 2025-03-22 11:12 | PM.CCPN ---
Subjective Subjective Date of Service: 03/22/25 Interval History: 34-year-old lady with underlying history of polysubstance abuse previously on methadone, seizures associated with polysubstance abuse, endocarditis admitted on 03/20/2025 with alteration of mental status and witnessed seizures on a background of polysubstance abuse requiring intubation and ventilatory support. Initial CT head with no acute findings. No events overnight. Critical Care Time (minutes): 60 Physical Exam Vital Signs: Vital Signs: Last Vital Signs Temp 99.5 F 03/22/25 11:00 Pulse 86 03/22/25 11:00 Resp 26 H 03/22/25 11:00 BP 132/85 03/22/25 11:00 Pulse Ox 96 03/22/25 11:00 O2 Del Method Mechanical Ventil ation 03/22/25 11:00 O2 Flow Rate 4 03/19/25 23:00 FiO2 21 03/22/25 11:00 Oxygen Flow Rate 6 03/19/25 18:02 BMI result Body Mass Index 21.7 Const: General: no acute distress and other (Sedated on ventilatory support) Eyes: Sclerae: sclerae normal EOM: EOMs intact bilaterally Neck: Neck: Yes no lymphadenopathy, Yes trachea midline and Yes supple Resp: Effort & Inspection: normal respiratory effort and no respiratory distress Auscultation: clear to auscultation bilaterally Cardio: Rate: regular rate Rhythm: regular rhythm Heart sounds: no gallops, no murmurs and no rubs GI: Palpation (GI): Soft to palpation and Other GI palpation findings present ( Nontender) Auscultation: normal bowel sounds Extrem: General: Yes no pedal edema, No clubbing and No cyanosis Objective Data Labs 03/22/25 04:13 03/22/25 04:13 Labs: Laboratory Results - last 24 hr 03/22/25 03/22/25 03/22/25 04:13 04:24 10:04 WBC 7.0 RBC 3.47 L Hgb 7.3 L Hct 23.3 L MCV 67.1 L MCH 21.0 L MCHC 31.3 RDW 20.4 H Plt Count 228 MPV 9.3 L Immature Gran % (Auto) 0.4 Neut % (Auto) 72.2 Lymph % (Auto) 17.3 L [place] % (Auto) 6.0 Eos % (Auto) 4.0 Baso % (Auto) 0.1 Lymph # (Auto) 1.2 [place] # (Auto) 0.4 Eos # (Auto) 0.3 Baso # (Auto) 0.0 Abs Immat Gran (auto) 0.03 Absolute Neuts (auto) 5.0 Absolute Nucleated RBC 0.000 Nucleated RBC % (auto) 0.0 VBG pH 7.48 H VBG pCO2 25 VBG pO2 54 VBG HCO3 19 L VBG O2 Saturation 83.0 VBG Base Excess -3.0 Sodium 141 Potassium 3.4 Chloride 111 H Carbon Dioxide 16 L Anion Gap 17 BUN 7 L Creatinine 0.60 Estim Creat Clear Calc 121.3 Estimated GFR > 60 Random Glucose 73 Calcium 8.2 L Phosphorus 3.6 Magnesium 1.8 Albumin 3.1 L Random Vancomycin 11.6 L Microbiology Microbiology Results: Microbiology 03/19/25 18:41 Blood - Venous Blood Culture - Preliminary No growth after 48 hours. 03/19/25 18:41 Blood - Venous Blood Culture - Preliminary No growth after 48 hours. Progress Note: A&P Assessment and plan (1) Polysubstance abuse: Status: Acute (2) Seizure: Status: Acute (3) Acute hypoxic respiratory failure: Status: Acute Plan Assessment: 34-year-old lady admitted with toxic encephalopathy and seizures on a background of polysubstance abuse requiring intubation and ventilatory support. Plan: Neuro: Seizures associated with polysubstance abuse, no recurrence on Keppra. Initial CT head with no acute findings. Toxic encephalopathy improving. Cardiac: No acute issues. Pulmonary: Acute respiratory failure with hypoxia requiring ventilatory support, continue to titrate off as tolerated. Renal: No acute issues. Endo: No acute issues. GI: No acute issues. ID: History of IV drug use with prior endocarditis. Cultures are pending. Continue broad-spectrum antibiotics until cultures are finalized. Heme/Onc: No acute issues. Psych: No acute issues. Miscellaneous: No acute issues. Prophylaxis: Heparin, ppi Diet: NPO Critical care time spent: 60 minutes Quality Stroke Does the patient have a stroke diagnosis?: No VTE Prior VTE?: No VTE Risk Level:: Medical - moderate - high VTE Device Contraindication: N/A - Device Ordered VTE Drug Contraindication: N/A - Med Ordered
--- NOTE | 2025-03-22 11:34 | MHC.CLN ---
NUTRITION PATIENT IS NPO AND CURRENTLY INTUBATED. TITRATING PROPOFOL. PLAN TO EXTUBATE. SKIN WITH REDNESS TO BILATERAL BUTTOCKS. FOLLOW FOR PLAN OF CARE AND DIET ADVANCEMENT. SEE CLINICAL NUTRITION ASSESSMENT 03/22/25.
--- NOTE | 2025-03-22 12:18 | PC.NURSE ---
Addendum entered by Shannan Gerardo RN 03/22/25 13:36: Pt expresses to leave AMA. at bedside, education given. IV's were removed. Original Note: RN assumed care of pt at 0645. Upon intial assessment, pt intubated and sedated. Extubated at 11:45, now on room air, drowsy. Needs frequent redirection. F/C removed, triple lumen removed.
--- NOTE | 2025-03-22 13:40 | PM.DS ---
DS: Providers Provider Date of Service: 03/22/25 Date of admission: 03/19/25 22:35 Date of discharge: 03/22/25 Primary care physician: Unknown Physician Consults: 03/20/25 01:36 Addiction Medicine Provider Stat Consulting Provider: Addiction Covering Reason for consultation: overdose Has provider been notified: No 03/20/25 01:58 Consult to Wound Care Routine Reason for consultation: cellulits/wound DS: Diagnosis Discharge Diagnosis (1) Polysubstance abuse: Status: Acute (2) Seizure: Status: Acute (3) Acute hypoxic respiratory failure: Status: Acute DS: Summary Hospital Course Hospital Course: 34-year-old lady with underlying history of polysubstance abuse previously on methadone, seizures associated with polysubstance abuse, endocarditis admitted on 03/20/2025 with alteration of mental status and witnessed seizures on a background of polysubstance abuse requiring intubation and ventilatory support. Initial CT head with no acute findings. Patient awake on ventilatory support this a.m. and extubated uneventfully. After extubation patient alert but anxious requesting to leave against medical advice. Patient advised on possible dangers to her health and possible , however she remained insistent, and was discharged against medical advice. Status at Discharge Functional status at discharge: independent ambulation Time Attestation Total time managing care of this patient today: 90 mintues. Discharge Coordination Time (in mins): 30 Quality: Safe Use of Opioids Does Pt have an Active Cancer Diagnosis on the Problem List?: No Quality: Stroke Does the patient have a stroke diagnosis?: No Physical Exam Vital Signs: Vital Signs: Last Vital Signs Temp 97.7 F 03/22/25 12:00 Pulse 91 03/22/25 12:00 Resp 26 H 03/22/25 11:00 BP 114/67 03/22/25 12:00 Pulse Ox 96 03/22/25 12:00 O2 Del Method Room Air 03/22/25 12:00 O2 Flow Rate 4 03/19/25 23:00 FiO2 21 03/22/25 11:12 Oxygen Flow Rate 6 03/19/25 18:02 BMI result Body Mass Index 21.7 Const: General: no acute distress, alert and awake Eyes: Sclerae: sclerae normal EOM: EOMs intact bilaterally Neck: Neck: Yes no lymphadenopathy, Yes trachea midline and Yes supple Resp: Effort & Inspection: normal respiratory effort and no respiratory distress Auscultation: clear to auscultation bilaterally Cardio: Rate: regular rate Rhythm: regular rhythm Heart sounds: no gallops, no murmurs and no rubs GI: Palpation (GI): Soft to palpation and Other GI palpation findings present ( Nontender) Auscultation: normal bowel sounds Extrem: General: Yes no pedal edema, No clubbing and No cyanosis DS: Data Data Completed and Pending Completed studies during hospitalization [Text1]: Procedures Transfusion of Nonautologous Red Blood Cells into Peripheral Vein, Percutaneous Approach (12/30/24) Labs on day of discharge: Laboratory Results - last 24 hr 03/22/25 03/22/25 03/22/25 04:13 04:24 10:04 WBC 7.0 RBC 3.47 L Hgb 7.3 L Hct 23.3 L MCV 67.1 L MCH 21.0 L MCHC 31.3 RDW 20.4 H Plt Count 228 MPV 9.3 L Immature Gran % (Auto) 0.4 Neut % (Auto) 72.2 Lymph % (Auto) 17.3 L [place] % (Auto) 6.0 Eos % (Auto) 4.0 Baso % (Auto) 0.1 Lymph # (Auto) 1.2 [place] # (Auto) 0.4 Eos # (Auto) 0.3 Baso # (Auto) 0.0 Abs Immat Gran (auto) 0.03 Absolute Neuts (auto) 5.0 Absolute Nucleated RBC 0.000 Nucleated RBC % (auto) 0.0 VBG pH 7.48 H VBG pCO2 25 VBG pO2 54 VBG HCO3 19 L VBG O2 Saturation 83.0 VBG Base Excess -3.0 Sodium 141 Potassium 3.4 Chloride 111 H Carbon Dioxide 16 L Anion Gap 17 BUN 7 L Creatinine 0.60 Estim Creat Clear Calc 121.3 Estimated GFR > 60 Random Glucose 73 Calcium 8.2 L Phosphorus 3.6 Magnesium 1.8 Albumin 3.1 L Random Vancomycin 11.6 L Preliminary micro results at discharge 03/19/25 18:41 Blood Culture - Preliminary Blood - Venous No growth after 48 hours. 03/19/25 18:41 Blood Culture - Preliminary Blood - Venous No growth after 48 hours. Discharge Plan Discharge Patient Disposition: Left Against Medical Advice Discharge Diagnosis: Polysubstance abuse Referrals: Physician,Unknown J [Primary Care Provider, Medical] - 1 Week Discharge Medications: No Action hydroxyzine HCl 50 mg tablet 50 mg PO BID PRN (Reason: anxiety) clonidine HCl 0.2 mg tablet 0.2 mg PO DAILY PRN (Reason: Anxiety) dextroamphetamine-amphetamine 15 mg tablet 1 tab PO TID alprazolam 2 mg tablet 2 mg PO QID PRN (Reason: anxiety) albuterol sulfate [Ventolin HFA] 90 mcg/actuation HFA aerosol inhaler 2 puff INHALATION Q4H PRN (Reason: Shortness Of Breath Or Wheezing) methadone [Methadose] 10 mg/mL Concentrate 50 mg PO DAILY@0800 Qty: 1 0RF Rx Instructions: Partial Fill upon patient request. levetiracetam 1,000 mg Tablet 1,000 mg PO BID Qty: 180 0RF doxycycline hyclate 100 mg Capsule 100 mg PO BID Rx Instructions: prescribed 03/19/25 for 10 days escitalopram oxalate 20 mg Tablet 20 mg PO DAILY bupropion HCl 300 mg tablet extended release 24 hr 300 mg PO DAILY Discharge Orders: Discharge Order (Routine); Ordered 03/22/25 Ordered By: Francisco Godwin Print Language: Turkmen Care Plan Goals: Patient left against medical advice Health Concerns: Underlying polysubstance abuse with polysubstance abuse related seizures. Plan of Treatment: Patient left against medical advice. Assessment: Awake, alert, and able to make her own decisions and understand consequences of her decisions.
[2025-03-23 11:03] LABS: Glucose, Whole Blood 152 mg/dL (60-115)
[2025-03-24 16:48] LABS: Levetiracetam Keppra <2.0 mcg/mL (6.0-46.0)
== END 2025-03-22 13:30 | disposition left against medical advice (07) | DRG 812 ==
LOC: HO.ED 20:37 → HO.EDOVER 22:43 → HO.ICU 22:58
PROVIDERS: Internal Medicine Critical Care Medicine; Admitting Provider Nurse Practitioner Family; Emergency Provider Emergency Medicine; Visit Provider Internal Medicine Pulmonary Disease
DX: T50.901A Poisoning by unspecified drugs, medicaments and biological substances, accidental (unintentional), initial encounter (principal); J96.01 Acute respiratory failure with hypoxia; J69.0 Pneumonitis due to inhalation of food and vomit; F11.20 Opioid dependence, uncomplicated; R56.9 Unspecified convulsions; F19.10 Other psychoactive substance abuse, uncomplicated; Z20.822 Contact with and (suspected) exposure to COVID-19; Z79.899 Other long term (current) drug therapy
CPT/HCPCS: 36415; 70450; 71045; 71275; 80048; 80053; 80143; 80177; 80179; 80202; 80307; 81003; 82040; 82550; 82803; 82947; 83605; 83735; 83880; 84100; 84484; 84702; 85025; 86140; 86850; 86900; 86901; 86923; 87040; 87635; 93005; 93306; 94002; 94003; 94640; 94799; 99285; J0613; J0736; J1171; J1650; J1953; J2250; J2251; J2470; J2543; J2704; J3010; J3374; J7120; P9016; P9047; Q9957; Q9967

== ENCOUNTER → 2025-03-19 18:11 | Outpatient (BNV) | payer OTHER, SELFPAY | PROVIDERS: Emergency Provider Emergency Medicine; Visit Provider Radiology Diagnostic Radiology | DX: R05.9 Cough, unspecified (principal) | CPT/HCPCS: 71045 ==

== ENCOUNTER → 2025-03-19 19:23 | Outpatient (BNV) | payer OTHER, SELFPAY | PROVIDERS: Admitting Provider Nurse Practitioner Family; Emergency Provider Emergency Medicine; Visit Provider Internal Medicine | DX: R00.0 Tachycardia, unspecified (principal) | CPT/HCPCS: 93010 ==

== ENCOUNTER 2025-03-19 22:35 | Outpatient (BNV) | payer OTHER, SELFPAY | END 2025-03-22 07:00 | PROVIDERS: Admitting Provider Nurse Practitioner Family; Emergency Provider Emergency Medicine; Visit Provider Internal Medicine Cardiovascular Disease | DX: Z13.6 Encounter for screening for cardiovascular disorders (principal) | CPT/HCPCS: 93306 ==

== ENCOUNTER → 2025-03-19 22:35 | Outpatient (BNV) | payer OTHER, SELFPAY | PROVIDERS: Admitting Provider Nurse Practitioner Family; Emergency Provider Emergency Medicine; Visit Provider Internal Medicine Pulmonary Disease | DX: J96.01 Acute respiratory failure with hypoxia (principal); R56.9 Unspecified convulsions; F19.10 Other psychoactive substance abuse, uncomplicated; Z53.29 Procedure and treatment not carried out because of patient's decision for other reasons | CPT/HCPCS: 99239; 99291 ==

== ENCOUNTER → 2025-03-19 22:35 | Outpatient (BNV) | payer OTHER, SELFPAY | PROVIDERS: Admitting Provider Nurse Practitioner Family; Emergency Provider Emergency Medicine; Visit Provider Nurse Practitioner Family | DX: J96.01 Acute respiratory failure with hypoxia (principal); R56.9 Unspecified convulsions | CPT/HCPCS: 99223; 99291 ==

== ENCOUNTER 2025-03-23 08:22 | Emergency (ER) | payer OTHER, SELFPAY ==
[2025-03-23] VITALS (7 sets, daily range): BP systolic 133–157; BP diastolic 86–99; PULSE 96–126; RESP 12–22; TEMP 36.8–37.1; O2SAT 95–96; BMI 20.3
--- NOTE | ~2025-03-23 | XR_ITS ---
EXAMINATION: XR CHEST CLINICAL INFORMATION: cough, chills recent abnormal CT scan COMPARISON: March 19, 2025. TECHNIQUE: Frontal view of the chest was obtained. FINDINGS: Pulmonary reticular pattern with a patchy opacity in the left lower hemithorax and to a lesser extent right lower hemithorax. No hyperinflation. No gross pleural effusion or pneumothorax. Cardiomediastinal silhouette size is normal. Mild S-shaped curvature of the thoracic spine which could be positional. XR/XR chest 1V IMPRESSION: Acute on chronic airspace disease involving mostly the left lung. Electronically signed by: Janes Jean MD 03/23/2025 10:31 AM EDT
--- NOTE | 2025-03-23 08:35 | ECG_ITS ---
Test Reason : weakness Blood Pressure : */* mmHG Vent. Rate : 105 BPM Atrial Rate : 105 BPM P-R Int : 128 ms QRS Dur : 92 ms QT Int : 370 ms P-R-T Axes : 44 41 43 degrees QTcB Int : 489 ms Sinus tachycardia Otherwise normal ECG When compared with ECG of 19-Mar-2025 19:36, No significant change was found Referred By: Rayna Baig Electronically Signed By: Delbert Desai
--- NOTE | 2025-03-23 08:37 | ED.SOB ---
HPI - SOB/Dyspnea General Chief Complaint: Weakness Stated Complaint: Pneumonia Time Seen by Provider: 03/23/25 08:33 Source: patient and old records reviewed Limitations: other (poor historian) History of Present Illness ED Provider: MELODIE GROVES Narrative: 34 yo female with PMH of IVDA just started on 50mg methadone on she was seen here s/p seizure (keppra 500mg BID0, AMS, multifocal pneumonia with resp failure and intubation on 03/19. She was extubated on 03/22 and then left AMA about 2 hours later per RN notes. She was not sent home with any medications. She returns today after getting her start up dose of 50mg methadone which she notes is not working as well as dyspnea, cough, chills, not feeling well overall. She did have ED POCUS done by US director in ED and there was concern for vegetation on her tricuspid not a hole in her heart. She states her mom dropped her off. She is supposed to be on keppra 500mg BID but no dose since prior to last visit. MD elicited complaint: shortness of breath and cough Onset (ago): day(s) (2) Context: recent illness Timing: progressively worsening Severity: moderate Exacerbating factors: lying flat, exertion and coughing Relieving factors: rest and upright position Known history of: aspiration pneumonia Associated symptoms: cough, sputum production and chest congestion Treatment prior to arrival: none Related Data Home Medications ?Medication ?Instructions ?Recorded ?Confirmed albuterol sulfate 90 mcg/actuation 2 puff inhalation Q4H PRN 09/06/24 03/23/25 aerosol inhaler (Ventolin HFA) Shortness Of Breath Or Wheezing alprazolam 2 mg tablet 2 mg PO QID PRN anxiety 09/06/24 03/23/25 clonidine HCl 0.2 mg tablet 0.2 mg PO DAILY PRN Anxiety 09/06/24 03/23/25 dextroamphetamine-amphetamine 15 1 tab PO TID 09/06/24 03/23/25 mg tablet hydroxyzine HCl 50 mg tablet 50 mg PO BID PRN anxiety 09/06/24 03/23/25 bupropion HCl 300 mg 24 hr tablet, 300 mg PO DAILY 12/30/24 03/23/25 extended release doxycycline hyclate 100 mg capsule 100 mg PO BID 03/20/25 03/23/25 escitalopram oxalate 20 mg tablet 20 mg PO DAILY 03/20/25 03/23/25 Previous Rx's ?Medication ?Instructions ?Recorded levetiracetam 1,000 mg tablet 1,000 mg PO BID #180 tabs 09/09/24 methadone 10 mg/mL oral 50 mg (5 mL) PO DAILY@0800 #1 mL 09/09/24 concentrate (Methadose) doxycycline hyclate 100 mg tablet 100 mg PO BID #20 tabs 03/23/25 levetiracetam 500 mg tablet 500 mg PO BID #60 tabs 03/23/25 (Keppra) Allergies Allergy/AdvReac Type Severity Reaction Status Date / Time No Known Allergies Allergy Verified 03/23/25 08:30 Review of Systems Review of Systems: Constitutional : No Fever, No Chills ENT/Mouth : No Hoarseness, No sore throat, No Rhinorrhea Eyes: No Redness, No Discharge, No Vision Changes Cardiovascular : No Chest Pain, positive SOB, positive Dyspnea on Exertion, No Edema Respiratory : positive Cough, No Sputum, positive Wheezing, Gastrointestinal : No Nausea, No Vomiting, No Diarrhea, No abdominal Pain Genitourinary : No Dysuria, No Hematuria Musculoskeletal : No joint pain, No Myalgias Skin : No rash Neuro : No Weakness, No Numbness, No Headache All other systems reviewed and are negative PMFSH Past Medical History Attestation statement: The following information was validated with the patient. Source: old records reviewed Medical History Polysubstance abuse Toxic metabolic encephalopathy Social History Social History Household Members: Unknown / Unable to assess Household Members Other:: states recently moved in w/ her mom Diana Housing: Unknown / Unable to assess Do you presently have visiting nurse or other home services: No Unable to assess alcohol history related to: Unable to respond Patient Tobacco Use Status: Never used Tobacco Substance Use Type: Crack/Cocaine and Heroin service: No Physical Exam Vital Signs: Vital Signs: Last Vital Signs Temp 98.7 F 03/23/25 10:38 Pulse 96 03/23/25 10:38 Resp 12 03/23/25 10:38 BP 138/94 H 03/23/25 10:38 Pulse Ox 96 03/23/25 10:38 O2 Del Method Room Air 03/23/25 10:38 BMI result Body Mass Index 20.3 Appearance: Alert. Oriented X3. No acute distress. older than stated age, frail, thin, temporal wasting Eyes: Pupils equal, round and reactive to light. ENT: Pharynx normal. Neck: Normal inspection. Neck supple. CVS: tachycardic heart rate and rhythm. Pulses normal. Respiratory: No respiratory distress. Breath sounds rales both bases heard, faint wheeze LLL Abdomen: Soft and nontender. Skin: Skin warm and dry. pale skin color. Normal skin turgor. Extremities: No lower extremity edema. No calf ttp . Old healing uninfected eschar and wounds on R forearm but no signs of infection Neuro: Oriented X 3. No motor deficit. No sensory deficit. CN2-12 intact Course Course Course Narrative: after hospitalist and William WASTE WATER [employer] WATER PLANT OPERATOR saw patient she now wants to leave AMA and refuses to stay despite labs, possible vegetation on valve, pneumonia Patient is clinically sober, has no significant distracting injury, and they appear to have intact judgement, insight and reason. In my clinical opinion they have medical decision making capacity. Signs and symptoms discussed with patient. They express understanding of signs/symptoms as explained to them and they repeated it back to me. Risks and benefits discussed with patient to include but not limited to , mcfp disability or loss of significant bodily functions. Alternatives to treatment plan discussed and offered. Patient encouraged to return should they change their mind. Close followup strongly encouraged in case they choose not to return. The patient wants leave Against Medical Advise at this time Medications Administered Generic Name Dose Route Start Last Admin Trade Name Freq PRN Reason Stop Dose Admin Heparin Sodium (Porcine) 5,000 unit 03/23/25 11:15 03/23/25 11:40 Heparin Sodium,Porcine 5,000 Unit/Ml Vial SUBCUT Not Given Q12H MECHELLE Discontinued Medications Generic Name Dose Route Start Last Admin Trade Name Freq PRN Reason Stop Dose Admin Lactated Ringer's 1,000 mls @ 999 mls/hr 03/23/25 08:35 03/23/25 10:02 Lr IV 03/23/25 09:35 Infused .Q1H1M ONE Infusion Acetaminophen 1,000 mg in 100 mls @ 400 mls/hr 03/23/25 08:35 03/23/25 09:16 Ofirmev IV 03/23/25 08:49 Infused ONCE ONE Infusion Piperacillin Sod/Tazobactam 50 mls @ 100 mls/hr 03/23/25 08:35 03/23/25 09:32 Sod 3.375 gm/ Sodium Chloride IV 03/23/25 09:04 Infused ONCE ONE Infusion Vancomycin HCl 1,500 mg/ 500 mls @ 333.333 mls/hr 03/23/25 08:42 03/23/25 09:31 Sodium Chloride IV 03/23/25 10:11 333.33 mls/hr ONCE ONE Administration Levetiracetam 500 mg 03/23/25 08:42 03/23/25 09:01 Levetiracetam 500 Mg Tablet PO 03/23/25 08:43 500 mg ONCE ONE Administration Methadone HCl 10 mg 03/23/25 08:42 03/23/25 09:01 Methadone Hcl 20 Mg/2 Ml Oral.Conc PO 03/23/25 08:43 10 mg ONCE ONE Administration Potassium Chloride 40 meq 03/23/25 09:33 03/23/25 09:56 Potassium Chloride Er 20 Meq Tab.Er.Prt PO 03/23/25 09:34 40 meq ONCE ONE Administration Medical Decision Making Medical Decision Making MDM Narrative: 34 yo female with PMH of IVDA just started on 50mg methadone on she was seen here s/p seizure (keppra 500mg BID0, AMS, multifocal pneumonia with resp failure and intubation now here after leaving AMA now c/o not feeling well at this time I am going to obtain labs, EKG, CXR, start on IV zosyn/vancomycin, cultures her 03/19 BCx were negative after 48 hours. She will need additional methadone and start her on keppra 500mg - plan to admit for treatment Differential Diagnosis Differential Diagnoses: The differential diagnosis associated with the presentation includes pneumonia, endocarditis, opiate withdrawal Admission/Observation Consideration of admission/observation: Escalation of care including admission/observation considered admit for IV abx Consult Healthcare Provider Management of the patient was discussed with: Hospitalist (will admit) Lab Data 03/23/25 09:02 03/23/25 09:02 Labs: Lab Results 03/23/25 Range/Units 09: WBC 8.4 (4.8-10.8) X10*3/uL RBC 4.19 L D (4.20-5.50) X10*6/uL Hgb 8.8 L D (12.0-16.0) g/dl Hct 28.2 L D (37.0-47.0) % MCV 67.3 L (80.0-98.0) fL MCH 21.0 L (27.0-33.0) pg MCHC 31.2 (31.0-35.0) g/dl RDW 20.6 H (11.0-16.0) % Plt Count 292 D (160-400) X10*3/uL MPV 9.1 L (9.4-12.3) fL Immature Gran % (Auto) 0.5 H (0.0-0.4) % Neut % (Auto) 80.7 H (45-73) % Lymph % (Auto) 12.8 L (20-40) % [place] % (Auto) 5.3 (2-11) % Eos % (Auto) 0.6 (0-4) % Baso % (Auto) 0.1 (0-2) % Lymph # (Auto) 1.1 L (1.2-4.9) X10*3/uL [place] # (Auto) 0.5 (0.1-1.2) X10*3/uL Eos # (Auto) 0.1 (0.0-0.4) X10*3/uL Baso # (Auto) 0.0 (0.0-0.2) X10*3/uL Abs Immat Gran (auto) 0.04 H (0.00-0.03) X10*3/uL Absolute Neuts (auto) 6.8 (2.0-8.3) x10*3/uL Absolute Nucleated RBC 0.000 (0.0-0.012) X10*3/uL Nucleated RBC % (auto) 0.0 (0.0-0.2) /100WBC Sodium 140 (135-145) mmol/L Potassium 3.0 L (3.3-5.1) mmol/L Chloride 109 H (96-108) mmol/L Carbon Dioxide 21 L (22-29) mmol/L Anion Gap 13 (12-20) BUN 12 (9-16) mg/dL Creatinine 0.55 (0.5-1.4) mg/dL Estim Creat Clear Calc 127.4 Estimated GFR > 60 Random Glucose 108 (60-115) mg/dL Lactic Acid 1.1 (0.5-2.0) mmol/L Calcium 8.8 D (8.4-10.2) mg/dL Magnesium 1.8 (1.6-2.6) mg/dL Iron 20 L (30-160) mcg/dL TIBC 237 (228-428) mcg/dL % Saturation 8 L (15-50) % Unsat Iron Binding 217 ug/dL Total Bilirubin 0.5 (0.0-1.0) mg/dL Direct Bilirubin 0.2 (0.0-0.5) mg/dL AST 47 H (5-31) U/L ALT 17 (0-31) U/L Alkaline Phosphatase 67 (39-117) U/L Total Creatine Kinase 733 H (26-140) U/L Troponin I High Sens < 2.7 (<3.5-17.0) ng/L C-Reactive Protein 7.94 H (< or = 0.50) mg/dL B-Natriuretic Peptide 83 (<100) pg/mL Total Protein 7.3 (6.5-8.0) g/dL Albumin 4.1 (3.5-5.0) g/dL Procalcitonin 0.48 ng/mL TSH 2.17 (0.32-4.0) uIU/mL Beta HCG, Quant < 2 mIU/mL Independent Interpretation I performed an independent interpretation of an: EKG and Plain X-Ray Interpretation: Rate: 105 Rhythm: sinus tachycardic [place]: normal Normal P waves. Normal JOHN. Normal QRS complex. ST T wave : inverted t wave V1, no DELORES qTC: 489 prior studies: no acute ischemia The study has been interpreted contemporaneously by me. . Radiology Impression Discussion of test interpretation with radiology: I have reviewed the radiologist's reading. External Record Review External record reviewed: Inpatient record, Outpatient record and Prior outpatient labs Procedures Procedure Narrative Procedure Narrative: Ultrasound Guided Peripheral Intravenous Catheter Placement Date/Time: Indication: Intravenous Access Location: [R] arm Provider: MELODIE Frankel was approached by nursing staff and informed that multiple unsuccessful attempts had been made to establish IV access in the patient. The patients arm was surveyed with the ultrasound for verification of vessel collapsibility, patency, depth and caliber, as well as identification of nearby structures. The target area was prepped with chlorhexidine. A tourniquet was placed proximally on the extremity. Under real-time ultrasound guidance, a 20G IV cath was advanced into the target vein. Dark blood was visualized in the flash chamber. The catheter was easily advanced into the vein. The catheter was evacuated of air and flushed with sterile saline. The catheter was secured in place with a tegaderm. The patient tolerated the procedure well and there were no complications. Estimated Blood Loss: 1mL Total Time for Procedure: 5min Performed by: MELODIE Date: 03/23/25 Time: 937am CPT: +07426 ; Reference Codes? [email or web address] Discharge Plan Discharge Clinical Impression: Acute hypokalemia Rhabdomyolysis Qualifiers: Rhabdomyolysis type: non-traumatic Qualified Code(s): M62.82 - Rhabdomyolysis Pneumonia Qualifiers: Pneumonia type: due to unspecified organism Laterality: left Lung location: unspecified part of lung Qualified Code(s): J18.9 - Pneumonia, unspecified organism Patient Disposition: Left Against Medical Advice Instructions: Hypokalemia (ED), Rhabdomyolysis (ED), Against Medical Advice (ED) Additional Instructions: there are many concerns about your health - anemia, pneumonia, possible vegetation and infection of your heart valve you were offered admission but refused please return for any worsening symptoms or concerns at any time Prescriptions: New doxycycline hyclate 100 mg tablet 100 mg PO BID Qty: 20 0RF levetiracetam [Keppra] 500 mg tablet 500 mg PO BID Qty: 60 0RF No Action hydroxyzine HCl 50 mg tablet 50 mg PO BID PRN (Reason: anxiety) clonidine HCl 0.2 mg tablet 0.2 mg PO DAILY PRN (Reason: Anxiety) dextroamphetamine-amphetamine 15 mg tablet 1 tab PO TID alprazolam 2 mg tablet 2 mg PO QID PRN (Reason: anxiety) albuterol sulfate [Ventolin HFA] 90 mcg/actuation HFA aerosol inhaler 2 puff INHALATION Q4H PRN (Reason: Shortness Of Breath Or Wheezing) methadone [Methadose] 10 mg/mL Concentrate 50 mg PO DAILY@0800 Qty: 1 0RF Rx Instructions: Partial Fill upon patient request. levetiracetam 1,000 mg Tablet 1,000 mg PO BID Qty: 180 0RF doxycycline hyclate 100 mg Capsule 100 mg PO BID Rx Instructions: prescribed 03/19/25 for 10 days escitalopram oxalate 20 mg Tablet 20 mg PO DAILY bupropion HCl 300 mg tablet extended release 24 hr 300 mg PO DAILY Referrals: Physician,Unknown J [Primary Care Provider, Medical] - 1 Week Stand Alone Forms: Against Medical Advice Print Language: Estonian
[2025-03-23] MEDS: Lactated Ringers 1,000 ML 999 ML IV (09:01)
[2025-03-23] MEDS: methADONE HCl 20 MG/2 ML ORAL.CONC 10 MG PO (09:01)
[2025-03-23 09:08] LABS: MANUAL DIFF FLAG NO
--- NOTE | 2025-03-23 09:22 | PC.NURSE ---
pt presents to the ED as a sepsis alert c/o increased sob/chills/fevers since recently being admitted/intubated for AMS, multifocal PNA and seizures. pt reports she has been compliant w/ keppra. while changing patient over, pt noted to have multiple needles/contraband throughout personal belongings. security called bedside. belongings obtained/placed in [place]. belongings list created by TM. 20gIV US guided access placed by MD in right upper arm - labs obtained/sent to lab. per MD, 2x cultures obtained from same site d/t pt being a difficult stick. pt noted to have multiple track medina/large wound to right forearm. IVF/medication administered per provider order. pt reports daily IVDU - multiple bags of meth daily. patient otherwise alert and oriented. vss and up to date. nsr on the vehicle monitor technician. pt on RA w/o difficulty - no apparent respiratory distress. no sob/wob noted. respirations even/unlabored. plan of care ongoing. call blanchard placed within reach.
[2025-03-23 09:23] LABS: Hematocrit 28.2 % (37.0-47.0); Hemoglobin 8.8 g/dl (12.0-16.0); Imm Gran Abs Auto 0.04 X10*3/uL (0.00-0.03); Imm Gran Pct Auto 0.5 % (0.0-0.4); Lymphocytes Absolute Auto 1.1 X10*3/uL (1.2-4.9); Mean Corpuscular HGB Conc 31.2 g/dl (31.0-35.0); Mean Corpuscular Hemoglobin 21.0 pg (27.0-33.0); Mean Corpuscular Volume 67.3 fL (80.0-98.0); NRBC Abs Auto 0.000 X10*3/uL (0.0-0.012); NRBC Pct Auto 0.0 /100WBC (0.0-0.2); Platelet Count 292 X10*3/uL (160-400); Red Blood Count 4.19 X10*6/uL (4.20-5.50); White Blood Count 8.4 X10*3/uL (4.8-10.8)
[2025-03-23 09:28] LABS: B Type Natriuretic Peptide 83 pg/mL (<100)
[2025-03-23 09:31] LABS: Alanine Aminotransferase 17 U/L (0-31); Albumin Level 4.1 g/dL (3.5-5.0); Alkaline Phosphatase 67 U/L (39-117); Anion Gap 13 (12-20); Aspartate Amino Transferase 47 U/L (5-31); Blood Urea Nitrogen 12 mg/dL (9-16); Calcium 8.8 mg/dL (8.4-10.2); Carbon Dioxide 21 mmol/L (22-29); Chloride 109 mmol/L (96-108); Creatinine Clr Calc Pharmacy 127.4; Estimated Glomerular Filt Rate > 60; Magnesium 1.8 mg/dL (1.6-2.6); Potassium 3.0 mmol/L (3.3-5.1); Sodium 140 mmol/L (135-145); Total Protein 7.3 g/dL (6.5-8.0)
[2025-03-23 09:32] LABS: Troponin-I High Sensitivity < 2.7 ng/L (<3.5-17.0)
[2025-03-23 09:50] LABS: Procalcitonin 0.48 ng/mL
[2025-03-23] MEDS: Potassium Chloride ER 20 MEQ TAB.ER.PRT 40 MEQ PO (09:56)
--- NOTE | 2025-03-23 11:07 | PC.NURSE ---
Pt came to ER by ambulance post seizure. She was in a car when it happened. Friends called ambulance Pt had multiple loaded syringes on her person. Security disposed of them. Right arm is ulcerated and open. Pt flagged for sepsis. Lung sounds rhoncus, wheezing, Protocol ordered. Pt received IV fluids, antibiotics. Pt reports that she may not want to stay because she is withdrawing and feels uncomfortable. Provider notified and ordered PO ativan. Methadone given, but she states she has not been taking it since she started using cocaine and heroin again. No report of pain at this time.
--- NOTE | 2025-03-23 11:12 | PM.IMHP ---
History of Present Illness 34-year-old woman presented to the ER with dyspnea, chills and cough. Patient was admitted to the ICU on 03/20/2025 secondary to necrotizing pneumonia, overdose, hypoxia necessitating intubation. Patient had a bedside echo showing mobile mass possible vegetation on the tricuspid valve. Patient was started on IV antibiotics. It looks like patient was extubated on 03/22/2025 and decided to leave against medical advice. She returned to the emergency department today with dyspnea, cough, chills. In the ER, chest x-ray showed acute on chronic airspace disease mostly involving the left lung, potassium 3.0, CRP 7.94, no fever or leukocytosis but noted tachycardia. Patient was treated with IV fluids, Zosyn, Keppra, vancomycin, methadone, oral potassium and lorazepam in the ER. She will be admitted for further management and treatment of sepsis secondary to pneumonia and possible endocarditis. Review of Systems Review of Systems: Denies any recent fever chills or decrease in appetite respiratory see HPI cardiovascular denied chest pain gastrointestinal denies any dysphagia abdominal pain nausea vomiting or diarrhea genitourinary denies any dysuria frequency or hematuria musculoskeletal denies any joint pain or swelling neuropsych denies any weakness or seizures all other systems reviewed are negative [facility] Medical History Polysubstance abuse Toxic metabolic encephalopathy Social History Household Members: Unknown / Unable to assess Household Members Other:: states recently moved in w/ her mom Diana Housing: Unknown / Unable to assess Do you presently have visiting nurse or other home services: No Unable to assess alcohol history related to: Unable to respond Patient Tobacco Use Status: Never used Tobacco Smoked in Last 30 Days: No Use of substances other than those prescribed or required for medical reasons: No Substance Use Type: Crack/Cocaine and Heroin Advance Directives: No Advance Directives Information Provided: Yes Patient : No service: No Meds Allergies Allergy/AdvReac Type Severity Reaction Status Date / Time No Known Allergies Allergy Verified 03/23/25 08:30 Active Medications: Current Medications Acetaminophen (Acetaminophen 325 Mg Tablet) 650 mg PO Q6H PRN PRN Reason: Pain, Mild 1-3,fever,headache Heparin Sodium (Porcine) (Heparin Sodium,Porcine 5,000 Unit/Ml Vial) 5,000 unit SUBCUT Q12H MECHELLE Ondansetron HCl (Ondansetron Hcl 4 Mg/2 Ml Vial) 4 mg IVPUSH Q8H PRN PRN Reason: Nausea and Vomiting Home Medications ?Medication ?Instructions ?Recorded ?Confirmed ?Last Taken ?Type albuterol sulfate 90 mcg/actuation 2 puff inhalation Q4H PRN 09/06/24 03/20/25 Unknown History aerosol inhaler (Ventolin HFA) Shortness Of Breath Or Wheezing alprazolam 2 mg tablet 2 mg PO QID PRN anxiety 09/06/24 03/20/25 Unknown History clonidine HCl 0.2 mg tablet 0.2 mg PO DAILY PRN Anxiety 09/06/24 03/20/25 Unknown History dextroamphetamine-amphetamine 15 1 tab PO TID 09/06/24 03/20/25 Unknown History mg tablet hydroxyzine HCl 50 mg tablet 50 mg PO BID PRN anxiety 09/06/24 03/20/25 Unknown History bupropion HCl 300 mg 24 hr tablet, 300 mg PO DAILY 12/30/24 03/20/25 Unknown History extended release doxycycline hyclate 100 mg capsule 100 mg PO BID 03/20/25 03/20/25 Unknown History escitalopram oxalate 20 mg tablet 20 mg PO DAILY 03/20/25 03/20/25 Unknown History Physical Exam Vital Signs and Narrative: Vital Signs: Last Vital Signs Temp 98.7 F 03/23/25 10:38 Pulse 96 03/23/25 10:38 Resp 12 03/23/25 10:38 BP 138/94 H 03/23/25 10:38 Pulse Ox 96 03/23/25 10:38 O2 Del Method Room Air 03/23/25 10:38 BMI result Body Mass Index 20.3 Appearing in no acute distress head is normocephalic atraumatic eyes pupils are PERRLA sclera is anicteric mouth throat mucous membranes are intact and moist neck is supple no lymphadenopathy, no JVD noted lung sounds are clear to auscultation heart regular rate rhythm, clear S1, S2 positive bowel sounds, abdomen is soft, nontender neuro patient is alert x3, no focal deficits Results Labs 03/23/25 09:02 03/23/25 09:02 Labs: Laboratory Results - last 24 hr 03/23/25 09:02 MCV 67.3 L MCH 21.0 L MCHC 31.2 RDW 20.6 H Plt Count 292 D MPV 9.1 L Immature Gran % (Auto) 0.5 H Neut % (Auto) 80.7 H Lymph % (Auto) 12.8 L [place] % (Auto) 5.3 Eos % (Auto) 0.6 Baso % (Auto) 0.1 Lymph # (Auto) 1.1 L [place] # (Auto) 0.5 Eos # (Auto) 0.1 Baso # (Auto) 0.0 Abs Immat Gran (auto) 0.04 H Absolute Neuts (auto) 6.8 Absolute Nucleated RBC 0.000 Nucleated RBC % (auto) 0.0 Anion Gap 13 Estim Creat Clear Calc 127.4 Estimated GFR > 60 Random Glucose 108 Lactic Acid 1.1 Calcium 8.8 D Magnesium 1.8 Total Bilirubin 0.5 Direct Bilirubin 0.2 AST 47 H ALT 17 Alkaline Phosphatase 67 Total Creatine Kinase 733 H C-Reactive Protein 7.94 H B-Natriuretic Peptide 83 Total Protein 7.3 Albumin 4.1 Procalcitonin 0.48 TSH 2.17 Beta HCG, Quant < 2 Imaging Radiologist's Impressions: Impressions Chest X-Ray 03/23/25 09:16 IMPRESSION: Acute on chronic airspace disease involving mostly the left lung. Electronically signed by: Janes Jean MD 03/23/2025 10:31 AM EDT Assessment and Plan Plan 34-year-old woman admitted for continued dyspnea, shortness of breath and cough. Discharge approximately 2 days ago against medical advice from the ICU after being intubated for overdose and pneumonia. Sepsis secondary to pneumonia Tachycardia, tachypnea, normal lactic acid Possible aspiration Continue vancomycin and Zosyn Supplemental oxygen as needed to keep oxygen saturation greater than 91% Incentive spirometry Check Legionella and strep pneumo urine Follow up blood cultures Seizure disorder Seizure precautions Continue Keppra Hypokalemia Replete and monitor Chronic substance abuse Addiction team consultation Received methadone 10 mg in the ED Microcytic anemia No obvious blood loss Add iron studies Mental health Continue home medications DVT prophylaxis with heparin Quality VTE VTE Risk Level:: Medical - moderate - high VTE Device Contraindication: Treatment Not Indicated VTE Drug Contraindication: N/A - Med Ordered
[2025-03-23 11:41] LABS: Iron 20 mcg/dL (30-160); Percent Iron Saturation 8 % (15-50); Total Iron Binding Capacity 237 mcg/dL (228-428); Unsaturated Iron Binding 217 ug/dL
--- NOTE | 2025-03-23 11:44 | HE.PHANOTE ---
Re Methadone, pt was here yesterday and received 50mg before leaving AMA.
--- NOTE | 2025-03-23 11:45 | HO.ADDICT_ITS ---
History of Present Illness Date of Service: 03/23/2025 Chief Complaint: PNA Reason for Consult: OUD --risk of leaving prior to completing treatment Sources of Information: patient interviewed and chart reviewed HPI Narrative: Patient is a 34 year old female, with medical history that includes seizure disorder, JOSHUA, and endocarditis, who presents to the ED today c/o of chills, dyspnea and cough. She was recently admitted to the ICU (03/19) with multifocal pneumonia and resp failure requiring intubation. On 03/22 she was extubated and shortly after, self discharged prior to completing treatment. Asked to see patient in ED d/t recent discharge prior to completing treatment and concern for vegetation on tricuspid valve. Patient seen in room 2 of main ED. She is awake, alert, enagegd in interview. She reports 60mg methadone today (50 at clinic and additional 10mg here) She immediately tells t/w that she is leaving due to feeling uncomfortable, referring to withdrawal sx. She states that she has been using approx an 8 ball of cocaine and 5 bundles IV daily. She is reporting nausea, stomach cramps, anxiety and overall body aches as most bothersome withdrawal sx. She reports previously being on total of 265mg methadone (split), however states it has been over a year since that. T/w discussed adding full agonists to current methadone doses to manage withdrawal sx, until methadone dose can be titrated to comfortable dose. Patient declined, stating she knows she will not be comfortable. Patient states she was in recovery for 7 years, and she is frustrated with how my brain is wired, I don't want to leave, but I can't stay . Medical Evaluation Reviewed: Yes Review of Systems Constitutional: Reports as per HPI Diagnostics Vital Signs (24Hr): Vital Signs - 24 hr 03/23/25 08:23 03/23/25 09:09 03/23/25 09:27 Temperature 98.2 F Pulse Rate 126 H 101 H 109 H Respiratory Rate 22 H 18 18 Blood Pressure 157/99 H 139/88 134/86 Pulse Oximetry 96 95 96 Oxygen Delivery Method Room Air Room Air Room Air 03/23/25 09:38 03/23/25 10:20 03/23/25 10:38 Temperature 98.7 F Pulse Rate 106 H 98 96 Respiratory Rate 14 14 12 Blood Pressure 133/88 137/94 H 138/94 H Pulse Oximetry 96 96 96 Oxygen Delivery Method Room Air Room Air Room Air BMI result Body Mass Index 20.3 Labs 03/23/25 09:02 03/23/25 09:02 Labs: Laboratory Results - last 48 hr 03/23/25 09:02 WBC 8.4 RBC 4.19 L D Hgb 8.8 L D Hct 28.2 L D MCV 67.3 L MCH 21.0 L MCHC 31.2 RDW 20.6 H Plt Count 292 D MPV 9.1 L Immature Gran % (Auto) 0.5 H Neut % (Auto) 80.7 H Lymph % (Auto) 12.8 L Crockett % (Auto) 5.3 Eos % (Auto) 0.6 Baso % (Auto) 0.1 Lymph # (Auto) 1.1 L Crockett # (Auto) 0.5 Eos # (Auto) 0.1 Baso # (Auto) 0.0 Abs Immat Gran (auto) 0.04 H Absolute Neuts (auto) 6.8 Absolute Nucleated RBC 0.000 Nucleated RBC % (auto) 0.0 Sodium 140 Potassium 3.0 L Chloride 109 H Carbon Dioxide 21 L Anion Gap 13 BUN 12 Creatinine 0.55 Estim Creat Clear Calc 127.4 Estimated GFR > 60 Random Glucose 108 Lactic Acid 1.1 Calcium 8.8 D Magnesium 1.8 Iron 20 L TIBC 237 % Saturation 8 L Unsat Iron Binding 217 Total Bilirubin 0.5 Direct Bilirubin 0.2 AST 47 H ALT 17 Alkaline Phosphatase 67 Total Creatine Kinase 733 H Troponin I High Sens < 2.7 C-Reactive Protein 7.94 H B-Natriuretic Peptide 83 Total Protein 7.3 Albumin 4.1 Procalcitonin 0.48 TSH 2.17 Beta HCG, Quant < 2 Imaging Radiology Impressions: ITS Impressions Chest X-Ray 03/23/25 09:16 IMPRESSION: Acute on chronic airspace disease involving mostly the left lung. Electronically signed by: Janes Jean MD 03/23/2025 10:31 AM EDT Mental Status Exam Mental Status Exam Level of Consciousness: Awake, Appropriate and Alert Patient Behavior: Appropriate and Cooperative Affect Description: Blunted Speech Pattern: Clear Hallucinations: None Thought Process: Intact Thought Content: positive for Intact Judgement: Fair Medications Medications Current Medications Acetaminophen (Acetaminophen 325 Mg Tablet) 650 mg PO Q6H PRN PRN Reason: Pain, Mild 1-3,fever,headache Guaifenesin/Dextromethorphan (Guaifenesin Dm 100/10/5 Ml 5 Ml Syrup) 5 ml PO Q4H PRN PRN Reason: Cough Heparin Sodium (Porcine) (Heparin Sodium,Porcine 5,000 Unit/Ml Vial) 5,000 unit SUBCUT Q12H MECHELLE Last Admin: 03/23/25 11:40 Dose: Not Given Piperacillin Sod/Tazobactam (Sod 4.5 gm/ Sodium Chloride) 100 mls @ 200 mls/hr IV Q6H MECHELLE Vancomycin HCl 1,250 mg/ (Sodium Chloride) 250 mls @ 166.667 mls/hr IV Q12H MECHELLE Ondansetron HCl (Ondansetron Hcl 4 Mg/2 Ml Vial) 4 mg IVPUSH Q8H PRN PRN Reason: Nausea and Vomiting Pharmacy Consult (Consult Rx Vancomycin Dosing) 1 each MISCELLANE DAILY PRN PRN Reason: Consult order Allergies Allergies Allergy/AdvReac Type Severity Reaction Status Date / Time No Known Allergies Allergy Verified 03/23/25 08:30 Assessment & Plan Assessment & Plan (1) Opioid use disorder: Status: Acute Code(s): F11.90 - Opioid use, unspecified, uncomplicated Assessment and Plan: * additional 10mg methadone administered in ED (total of 60mg today) * patient declining additional medications for withdrawal, including additional full opioid agonists. * requesting discharge, aware of risks associated with leaving and concern for endocarditis--patient, calm, apologetic, requesting paperwork to leave Total time managing care of this patient today __30__ minutes. [facility] Past Medical History Medical History Polysubstance abuse Toxic metabolic encephalopathy Social History Social History Household Members: Unknown / Unable to assess Household Members Other:: states recently moved in w/ her mom Diana Housing: Unknown / Unable to assess Do you presently have visiting nurse or other home services: No Unable to assess alcohol history related to: Unable to respond Patient Tobacco Use Status: Never used Tobacco Substance Use Type: Crack/Cocaine and Heroin service: No
--- NOTE | 2025-03-23 11:45 | PHA.MEDREC ---
Pharmacy Consult ? Medication Reconciliation Pharmacy has completed the medication reconciliation. Pt left AMA yesterday, continued from that admission's med rec and discharge list.
--- NOTE | 2025-03-23 11:45 | PC.NURSE ---
Pt leaving AMA, providers (ER & inpatient) aware. Physician discussed risks of leaving, including . IV removed. Pt belongings returned.
--- NOTE | 2025-03-23 12:04 | PC.NURSE ---
pT REPORTS THAT SHE WILL GET A RIDE. VERBALIZED DC UNDERSTANDING. MEDICATIONS WERE CALLED IN TO HER PHARMACY BY PROVIDER, SHE GOT A CONFIRMATION. AMBULATED TO WAITING ROOM.
== END 2025-03-23 13:11 | disposition left against medical advice (07) ==
LOC: HO.ED 10:51 → HO.EDOVER 11:36 → HO.ED 11:51
PROVIDERS: Nurse Practitioner Acute Care; Emergency Provider Emergency Medicine
DX: M62.82 Rhabdomyolysis (principal); J18.9 Pneumonia, unspecified organism; E87.6 Hypokalemia; R06.00 Dyspnea, unspecified; R00.0 Tachycardia, unspecified; F11.90 Opioid use, unspecified, uncomplicated; Z79.899 Other long term (current) drug therapy
CPT/HCPCS: 36415; 71045; 80048; 80076; 82550; 83540; 83605; 83735; 83880; 84145; 84443; 84484; 84702; 85025; 86140; 87040; 93005; 96361; 96374; 96375; 99285; J0131; J2543; J3374; J7120

== ENCOUNTER → 2025-03-23 08:35 | Outpatient (BNV) | payer OTHER, SELFPAY | PROVIDERS: Emergency Provider Emergency Medicine; Visit Provider Internal Medicine Cardiovascular Disease | DX: R00.0 Tachycardia, unspecified (principal) | CPT/HCPCS: 93010 ==

== ENCOUNTER → 2025-03-23 08:39 | Outpatient (BNV) | payer OTHER, SELFPAY | PROVIDERS: Emergency Provider Emergency Medicine; Visit Provider Nurse Practitioner Psychiatric/Mental Health | DX: F11.90 Opioid use, unspecified, uncomplicated (principal) | CPT/HCPCS: 99222 ==

== ENCOUNTER → 2025-03-23 09:43 | Outpatient (BNV) | payer OTHER, SELFPAY | PROVIDERS: Emergency Provider Emergency Medicine; Visit Provider Radiology Diagnostic Radiology | DX: R05.9 Cough, unspecified (principal) | CPT/HCPCS: 71045 ==

== ENCOUNTER 2025-04-11 18:30 | Emergency (ER) | payer OTHER, SELFPAY ==
[2025-04-11 18:47] VITALS: BP 120/70; BP 141/92; PULSE 118; PULSE 130; RESP 20; TEMP 37.1; O2SAT 99; BMI 20.2
--- NOTE | 2025-04-11 18:55 | ED.GENADULT ---
HPI - General Adult General Chief complaint: Seizure Stated complaint: Sz?& infected lg. wound R arm, hx:Drug use,sepsis? Time Seen by Provider: 04/11/25 18:47 Source: patient Mode of arrival: ambulatory Limitations: no limitations History of Present Illness ED Provider: Dr. Ricci HPI narrative: 34-year-old female history of IV drug use, chronic wound on the right upper extremity presented hospital today for evaluation of seizure-like activity. Patient's family called EMS. Patient denies any head injury denies any injury anywhere else. Patient stated that when she was waking up she was initially confused however now she is back to her baseline status. She is requesting to be discharged. Patient stated that she has not been compliant with her Keppra. She takes 1000 mg twice a day. She does have history of seizures in the past. Patient is currently following with the wound clinic for her right upper extremity wound. She stated she just finished her course of doxycycline. The wound does appear to be improved. Related Data Home Medications ?Medication ?Instructions ?Recorded ?Confirmed albuterol sulfate 90 mcg/actuation 2 puff inhalation Q4H PRN 09/06/24 03/23/25 aerosol inhaler (Ventolin HFA) Shortness Of Breath Or Wheezing alprazolam 2 mg tablet 2 mg PO QID PRN anxiety 09/06/24 03/23/25 clonidine HCl 0.2 mg tablet 0.2 mg PO DAILY PRN Anxiety 09/06/24 03/23/25 dextroamphetamine-amphetamine 15 1 tab PO TID 09/06/24 03/23/25 mg tablet hydroxyzine HCl 50 mg tablet 50 mg PO BID PRN anxiety 09/06/24 03/23/25 bupropion HCl 300 mg 24 hr tablet, 300 mg PO DAILY 12/30/24 03/23/25 extended release doxycycline hyclate 100 mg capsule 100 mg PO BID 03/20/25 03/23/25 escitalopram oxalate 20 mg tablet 20 mg PO DAILY 03/20/25 03/23/25 Previous Rx's ?Medication ?Instructions ?Recorded levetiracetam 1,000 mg tablet 1,000 mg PO BID #180 tabs 09/09/24 methadone 10 mg/mL oral 50 mg (5 mL) PO DAILY@0800 #1 mL 09/09/24 concentrate (Methadose) doxycycline hyclate 100 mg tablet 100 mg PO BID #20 tabs 03/23/25 levetiracetam 500 mg tablet 500 mg PO BID #60 tabs 03/23/25 (Keppra) doxycycline hyclate 100 mg capsule 100 mg PO BID 7 days #14 caps 04/11/25 Allergies Allergy/AdvReac Type Severity Reaction Status Date / Time No Known Allergies Allergy Verified 04/11/25 18:51 Review of Systems Review of Systems: Pertinent review of systems as mentioned in HPI. All other system otherwise negative. [facility] Past Medical History [facility] Narrative: Medical history as mentioned in HPI Medical History Polysubstance abuse Toxic metabolic encephalopathy Social History Social History Household Members: Unknown / Unable to assess Household Members Other:: states recently moved in w/ her mom Diana Housing: Unknown / Unable to assess Do you presently have visiting nurse or other home services: No Unable to assess alcohol history related to: Unable to respond Patient Tobacco Use Status: Never used Tobacco Substance Use Type: Crack/Cocaine and Heroin service: No Physical Exam ED Exam Exam: General: Pleasant, no distress, interacting appropriately Head: Normacephalic, atraumatic ENT: oral mucosa moist, neck supple, no tracheal deviation Cardiac: Tachycardic regular rhythm Extremities: Patient does have significant wound on the right forearm. Appears to be slightly erythematous on exam. No obvious fluctuant appreciated. She does have some induration. Right upper extremity CMS intact Neurological: Awake and alert, no facial droop noted Skin: Warm and dry Psychiatric: Appropriate mood and thoughts Vital Signs: Vital Signs - 24 hr 04/11/25 18:47 Temperature 98.8 F Pulse Rate 118 H Respiratory Rate 20 Blood Pressure 141/92 H Pulse Oximetry 99 Oxygen Delivery Method Room Air BMI result Body Mass Index 20.2 Medical Decision Making Medical Decision Making [facility] Narrative: This is a 34-year-old female presented hospital today for evaluation of breakthrough seizure. We will plan to give patient her home dose of Keppra here. Patient also is tachycardic because she stated that she is very anxious with her situation at this time. She normally takes Xanax 2 mg. We will plan to provide this to the patient. Confirm with her medication list. Discussed the patient on further workup for her breakthrough seizure. Patient states she does not want any lab drawn does not want any further workup at this time. She would like to be discharged home. She understands the risk of refusing treatment at this time. I did rewrap patient's wound. The patient will be discharged at this time. we will plan to extend the patient's doxycycline course. Differential Diagnosis Differential Diagnoses: The differential diagnosis associated with the presentation includes Abscess, cellulitis, breakthrough seizure, med noncompliance Social Determinants Polysubstance use Discharge Plan Discharge Clinical Impression: Polysubstance abuse, Breakthrough seizure Patient Disposition: Home, Self-Care Additional Instructions: Make sure to take your seizure medicaitons daily. Prescriptions: New doxycycline hyclate 100 mg capsule 100 mg PO BID 7 Days Qty: 14 0RF No Action hydroxyzine HCl 50 mg tablet 50 mg PO BID PRN (Reason: anxiety) clonidine HCl 0.2 mg tablet 0.2 mg PO DAILY PRN (Reason: Anxiety) dextroamphetamine-amphetamine 15 mg tablet 1 tab PO TID alprazolam 2 mg tablet 2 mg PO QID PRN (Reason: anxiety) albuterol sulfate [Ventolin HFA] 90 mcg/actuation HFA aerosol inhaler 2 puff INHALATION Q4H PRN (Reason: Shortness Of Breath Or Wheezing) methadone [Methadose] 10 mg/mL Concentrate 50 mg PO DAILY@0800 Qty: 1 0RF Rx Instructions: Partial Fill upon patient request. levetiracetam 1,000 mg Tablet 1,000 mg PO BID Qty: 180 0RF doxycycline hyclate 100 mg Capsule 100 mg PO BID Rx Instructions: prescribed 03/19/25 for 10 days escitalopram oxalate 20 mg Tablet 20 mg PO DAILY doxycycline hyclate 100 mg tablet 100 mg PO BID Qty: 20 0RF levetiracetam [Keppra] 500 mg tablet 500 mg PO BID Qty: 60 0RF bupropion HCl 300 mg tablet extended release 24 hr 300 mg PO DAILY Print Language: Citizen [place]
--- NOTE | 2025-04-11 19:21 | PC.NURSE ---
pt requesting to leave, MD aware. d/c papers are done, pt refused to sign. IV removed, pt medicated
[2025-04-11 19:22] VITALS: BP 141/92; PULSE 118; RESP 20; TEMP 37.1; O2SAT 99
== END 2025-04-11 19:23 | disposition home or self-care (01) ==
PROVIDERS: Emergency Provider Student in an Organized Health Care Education/Training Program; PCP Internal Medicine Medical Oncology
DX: R56.9 Unspecified convulsions (principal); Z79.899 Other long term (current) drug therapy; Z91.148 Patient's other noncompliance with medication regimen for other reason
CPT/HCPCS: 99283

== ENCOUNTER 2025-05-07 10:00 | Outpatient (RCR) | payer OTHER, SELFPAY | END 2025-07-19 16:14 | disposition home or self-care (01) | LOC: HO.WCC 10:00 | PROVIDERS: Visit Provider Surgery Vascular Surgery | DX: L98.492 Non-pressure chronic ulcer of skin of other sites with fat layer exposed (principal); M61.032 Myositis ossificans traumatica, left forearm; L03.114 Cellulitis of left upper limb; G40.89 Other seizures; F11.90 Opioid use, unspecified, uncomplicated; F14.90 Cocaine use, unspecified, uncomplicated; F17.210 Nicotine dependence, cigarettes, uncomplicated; W46.0XXD Contact with hypodermic needle, subsequent encounter | CPT/HCPCS: 97597; 97598; 99212; 99213; 99214 ==